=== PATIENT | female | born 1965 | race Caucasian/White ===

== ENCOUNTER → 2021-07-20 13:44 | Outpatient (BNVA) | payer OTHER, SELFPAY | PROVIDERS: Visit Provider Internal Medicine Rheumatology | DX: M05.9 Rheumatoid arthritis with rheumatoid factor, unspecified (principal); M81.0 Age-related osteoporosis without current pathological fracture; Z79.899 Other long term (current) drug therapy | CPT/HCPCS: 99212 ==

== ENCOUNTER 2021-08-17 16:14 | Outpatient (REF) | payer OTHER, SELFPAY ==
--- NOTE | ~2021-08-17 | XR_ITS ---
EXAMINATION: XR FOOT, LEFT CLINICAL INFORMATION: Rheumatoid arthritis. COMPARISON: None TECHNIQUE: AP, lateral, and oblique views of the left foot. FINDINGS: There is generalized bony demineralization. No fracture, dislocation or left ankle joint effusion is seen. Boehler's angle is normal. No calcaneal spur seen. There are no focal bone erosions. No soft tissue swelling, gas or foreign body is seen. XR/XR foot LT min 3V IMPRESSION: There is bony demineralization. No fracture, dislocation or unusual degenerative change is seen. There are no focal erosive changes.
--- NOTE | ~2021-08-17 | XR_ITS ---
EXAMINATION: XR HIP, RIGHT CLINICAL INFORMATION: Rheumatoid arthritis. COMPARISON: None TECHNIQUE: AP and frog-leg lateral views of the right hip. FINDINGS: Bones and soft tissues are normal. No fracture. Alignment is anatomic. Hip joint space is maintained. XR/XR hip LT min 2V IMPRESSION: Normal right hip. EXAMINATION: XR HIP, LEFT CLINICAL INFORMATION: Rheumatoid arthritis. COMPARISON: None TECHNIQUE: AP and frog-leg lateral views of the left hip. FINDINGS: Bones and soft tissues are normal. No fracture. Alignment is anatomic. Hip joint space is maintained. IMPRESSION: Normal left hip.
--- NOTE | ~2021-08-17 | XR_ITS ---
EXAMINATION: XR HIP, RIGHT CLINICAL INFORMATION: Rheumatoid arthritis. COMPARISON: None TECHNIQUE: AP and frog-leg lateral views of the right hip. FINDINGS: Bones and soft tissues are normal. No fracture. Alignment is anatomic. Hip joint space is maintained. XR/XR hip RT min 2V IMPRESSION: Normal right hip. EXAMINATION: XR HIP, LEFT CLINICAL INFORMATION: Rheumatoid arthritis. COMPARISON: None TECHNIQUE: AP and frog-leg lateral views of the left hip. FINDINGS: Bones and soft tissues are normal. No fracture. Alignment is anatomic. Hip joint space is maintained. IMPRESSION: Normal left hip.
== END 2021-08-17 16:15 | disposition home or self-care (01) ==
LOC: HO.HMGCX 16:14
PROVIDERS: Visit Provider Internal Medicine Rheumatology
DX: M05.9 Rheumatoid arthritis with rheumatoid factor, unspecified (principal); M70.61 Trochanteric bursitis, right hip; M79.672 Pain in left foot; M81.0 Age-related osteoporosis without current pathological fracture
CPT/HCPCS: 73502; 73630

== ENCOUNTER 2021-09-01 15:25 | Outpatient (REF) | payer OTHER, SELFPAY ==
[2021-09-01 16:51] LABS: MANUAL DIFF FLAG NO
[2021-09-01 16:57] LABS: Basophils Absolute Auto 0.1 X10*3/uL (0.0-0.2); Basophils Percent Auto 0.7 % (0-2); Eosinophils Absolute Auto 0.4 X10*3/uL (0.0-0.4); Eosinophils Percent Auto 5.4 % (0-4); Hematocrit 41.5 % (37.0-47.0); Hemoglobin 13.7 g/dl (12.0-16.0); Imm Gran Abs Auto 0.03 X10*3/uL (0.00-0.03); Imm Gran Pct Auto 0.4 % (0.0-0.4); Lymphocytes Absolute Auto 3.8 X10*3/uL (1.2-4.9); Lymphocytes Percent Auto 50.7 % (20-40); Mean Corpuscular Hemoglobin 29.8 pg (27.0-33.0); Mean Corpuscular Volume 90.4 fL (80.0-98.0); Mean Platelet Volume 11.1 fL (9.4-12.3); Monocytes Absolute Auto 0.6 X10*3/uL (0.1-1.2); Monocytes Percent Auto 8.3 % (2-11); Neutrophils Absolute Auto 2.6 x10*3/uL (2.0-8.3); Neutrophils Percent Auto 34.5 % (45-73); Platelet Count 218 X10*3/uL (160-400); Red Blood Count 4.59 X10*6/uL (4.20-5.50); Red Cell Distribution Width 13.8 % (11.0-16.0); White Blood Count 7.6 X10*3/uL (4.8-10.8)
[2021-09-01 17:27] LABS: Alanine Aminotransferase 25 U/L (0-31); Aspartate Amino Transferase 22 U/L (5-31); C Reactive Protein 0.15 mg/dL (< or = 0.50); Estimated Glomerular Filt Rate > 60
[2021-09-01 17:34] LABS: Erythrocyte Sedimentation Rate 6 MM/HR (0-20)
[2021-09-01 17:50] LABS: TSH reflex Free T4 1.31 uIU/mL (0.32-4.0)
== END 2021-09-01 15:26 | disposition home or self-care (01) ==
LOC: HO.HMGCLDS 15:25
PROVIDERS: Visit Provider Internal Medicine Rheumatology
DX: M05.9 Rheumatoid arthritis with rheumatoid factor, unspecified (principal); R63.5 Abnormal weight gain; Z79.899 Other long term (current) drug therapy
CPT/HCPCS: 36415; 82565; 84443; 84450; 84460; 85025; 85652; 86140

== ENCOUNTER 2022-01-07 14:58 | Outpatient (REF) | payer OTHER, SELFPAY ==
[2022-01-07 16:35] LABS: MANUAL DIFF FLAG NO
[2022-01-07 16:37] LABS: Basophils Absolute Auto 0.1 X10*3/uL (0.0-0.2); Basophils Percent Auto 0.8 % (0-2); Eosinophils Absolute Auto 0.3 X10*3/uL (0.0-0.4); Eosinophils Percent Auto 3.7 % (0-4); Hematocrit 41.1 % (37.0-47.0); Hemoglobin 13.7 g/dl (12.0-16.0); Imm Gran Abs Auto 0.03 X10*3/uL (0.00-0.03); Imm Gran Pct Auto 0.3 % (0.0-0.4); Lymphocytes Absolute Auto 4.9 X10*3/uL (1.2-4.9); Lymphocytes Percent Auto 55.9 % (20-40); Mean Corpuscular HGB Conc 33.3 g/dl (31.0-35.0); Mean Corpuscular Hemoglobin 29.8 pg (27.0-33.0); Mean Corpuscular Volume 89.3 fL (80.0-98.0); Mean Platelet Volume 11.1 fL (9.4-12.3); Monocytes Absolute Auto 0.8 X10*3/uL (0.1-1.2); Monocytes Percent Auto 9.1 % (2-11); Neutrophils Absolute Auto 2.6 x10*3/uL (2.0-8.3); Neutrophils Percent Auto 30.2 % (45-73); Platelet Count 233 X10*3/uL (160-400); Red Cell Distribution Width 13.7 % (11.0-16.0); White Blood Count 8.7 X10*3/uL (4.8-10.8)
[2022-01-07 16:47] LABS: Alanine Aminotransferase 29 U/L (0-31); Aspartate Amino Transferase 29 U/L (5-31); C Reactive Protein 0.38 mg/dL (< or = 0.50); Estimated Glomerular Filt Rate > 60
[2022-01-07 17:21] LABS: Erythrocyte Sedimentation Rate 12 MM/HR (0-20)
== END 2022-01-07 14:59 | disposition home or self-care (01) ==
LOC: HO.HMGCLDS 14:58
PROVIDERS: Visit Provider Internal Medicine Rheumatology
DX: M05.9 Rheumatoid arthritis with rheumatoid factor, unspecified (principal); Z79.899 Other long term (current) drug therapy
CPT/HCPCS: 36415; 82565; 84450; 84460; 85025; 85652; 86140

== ENCOUNTER 2022-03-08 | Emergency (ER) | payer OTHER, SELFPAY ==
[2022-03-07 23:58] VITALS: BP 141/70; PULSE 210; O2SAT 96
[2022-03-08] VITALS: BP 140/86; PULSE 111; RESP 17; TEMP 37.3; O2SAT 140; BMI 31.5
--- NOTE | 2022-03-08 00:09 | ECG_ITS ---
Test Reason : SVT Blood Pressure : / mmHG Vent. Rate : 112 BPM Atrial Rate : 112 BPM P-R Int : 124 ms QRS Dur : 074 ms QT Int : 324 ms P-R-T Axes : 045 058 040 degrees QTc Int : 442 ms Sinus tachycardia Otherwise normal ECG No previous ECGs available Referred By: Hawk Samson Electronically Signed By:NICKY HUDSON MD
--- NOTE | 2022-03-08 00:22 | PC.NURSE ---
pt chart not opening to triage to document. pt at this time is pain free. ekg being done. no s/s of resp distress.
--- NOTE | 2022-03-08 01:02 | ED_ITS ---
HPI - Arrhythmia/Palpitations General Chief Complaint: General Medical Stated Complaint: resolved svt Source: patient Mode of arrival: ambulatory Limitations: no limitations History of Present Illness HPI narrative: Patient otherwise healthy just prior to arrival patient noticed having palpitation episode will last about 15-20 minutes until EMS came monitor showed heart rate in 220 Adenocard 6 mg was given which broke the SVT to normal sinus rhythm no dizziness no shortness of breath no chest pain patient also has small area right buttock inflamed for last 3- 4 days history of staph infection at age 19 Related Data Home Medications Medication Instructions Recorded Confirmed albuterol sulfate 2.5 mg/3 mL 2.5 mg inhalation Q4-6H PRN 07/20/21 07/20/21 (0.083 %) solution for nebulization albuterol sulfate 90 mcg/actuation 2 puff inhalation Q6H PRN 07/20/21 07/20/21 aerosol inhaler alendronate 70 mg tablet 70 mg PO QWEEK 07/20/21 07/20/21 multivitamin 1 tab PO DAILY 07/20/21 07/20/21 omeprazole 20 mg capsule,delayed 20 mg PO .every other day 07/20/21 07/20/21 release Previous Rx's Medication Instructions Recorded folic acid 400 mcg tablet 0.4 mg PO DAILY #90 tabs 07/20/21 adalimumab 40 mg/0.4 mL 40 mg (0.4 mL) subcut Q2W #2 ea 10/14/21 subcutaneous pen kit (Humira(CF) Pen) methotrexate sodium 2.5 mg tablet 15 mg PO QWEEK #24 tabs 11/23/21 cephalexin 500 mg capsule 500 mg PO QID 10 days #40 caps 03/08/22 Allergies Allergy/AdvReac Type Severity Reaction Status Date / Time amoxicillin Allergy Intermediate Vomiting/di Verified 07/20/21 13:54 arrhea Review of Systems Review of Systems: Yes all other systems are reviewed and are negative PMFSH Past Medical History 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 Osteoporosis Seropositive rheumatoid arthritis Trochanteric bursitis of right hip Weight gain Social History Social History Household Members Other:: lives alone Housing: Apartment Are you a primary rn progressive care unit to a significant other at home: No Do you presently have visiting nurse or other home services: No Alcohol intake: current Alcohol intake frequency: 0-2 drinks per day Alcohol type: wine Patient Tobacco Use Status: Former Tobacco user Years Smoked: quit 2010 Smoked in Last 30 Days: No e-Cigarette/Vaping Use: Never Used Use of substances other than those prescribed or required for medical reasons: No Advance Directives: No Advance Directives Information Provided: Yes Patient : No service: No Current occupational status: employed 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 Oriented X3. No acute distress. Eyes: PERRLA, No Nystagmus ENT: Pharynx normal. Oral Mucosa moist Neck: Normal inspection. Neck supple. CVS: Sinus tachycardia. Pulses normal no murmur rub or gallop. Respiratory: No respiratory distress. Equal air entry bilateral, no wheezing/rales/rhonchi Abdomen: Soft and nontender. Bowel sounds are present, no mass palpable, no CVA tenderness Skin: Skin warm and dry. Right gluteal area 10 x 10 cm cellulitic with middle indurated area Extremities: No lower extremity edema. No calf tenderness Neuro: Oriented X 3. No motor deficit. Medications Administered Generic Name Dose Route Start Last Admin Trade Name Freq PRN Reason Stop Dose Admin Sodium Chloride 1,000 mls @ 999 mls/hr 03/08/22 00:55 03/08/22 01:17 Ns IV 03/08/22 01:55 999 mls/hr .Q1H1M ONE Administration Discontinued Medications Generic Name Dose Route Start Last Admin Trade Name Freq PRN Reason Stop Dose Admin Cephalexin HCl 500 mg 03/08/22 00:44 03/08/22 01:17 Cephalexin 500 Mg Capsule PO 03/08/22 00:45 500 mg ONCE ONE Administration Doxycycline Monohydrate 100 mg 03/08/22 00:44 03/08/22 01:17 Doxycycline Monohydrate 100 Mg Capsule PO 03/08/22 00:45 100 mg ONCE ONE Administration Lidocaine HCl 2 ml 03/08/22 00:47 03/08/22 01:17 Lidocaine Hcl 1 % Mpf 2 Ml Vial INFILTRATI 03/08/22 00:48 2 ml ONCE ONE Administration MDM - Arrhythmia/Palpitations MDM Narrative Medical decision making narrative: Patient with 1st episode of SVT improved after Adenocard also has cellulitic area with small abscess in right gluteal I&D was done small amount of pus drained and sent for culture during stay in the ER patient stated sinus rhythm Differential Diagnosis Differential diagnosis: Likely palpitations and supraventricular tachycardia Lab Data Attestation: I reviewed the patient's lab results. Result diagrams: 03/08/22 00:59 03/08/22 00:59 Labs: Lab Results 03/08/22 03/08/22 03/08/22 Range/Units 00:59 00:59 00:59 WBC 13.2 H (4.8-10.8) X10*3/uL RBC 4.37 (4.20-5.50) X10*6/uL Hgb 12.7 (12.0-16.0) g/dl Hct 38.9 (37.0-47.0) % MCV 89.0 (80.0-98.0) fL MCH 29.1 (27.0-33.0) pg MCHC 32.6 (31.0-35.0) g/dl RDW 13.0 (11.0-16.0) % Plt Count 214 (160-400) X10*3/uL MPV 10.2 (9.4-12.3) fL Immature Gran % (Auto) 0.4 (0.0-0.4) % Neut % (Auto) 61.5 (45-73) % Lymph % (Auto) 28.1 (20-40) % [place] % (Auto) 8.4 (2-11) % Eos % (Auto) 1.1 (0-4) % Baso % (Auto) 0.5 (0-2) % Lymph # (Auto) 3.7 (1.2-4.9) X10*3/uL [place] # (Auto) 1.1 (0.1-1.2) X10*3/uL Eos # (Auto) 0.1 (0.0-0.4) X10*3/uL Baso # (Auto) 0.1 (0.0-0.2) X10*3/uL Abs Immat Gran (auto) 0.05 H (0.00-0.03) X10*3/uL Absolute Neuts (auto) 8.1 (2.0-8.3) x10*3/uL Absolute Nucleated RBC 0.000 (0.0-0.012) X10*3/uL Nucleated RBC % (auto) 0.0 (0.0-0.2) /100WBC Sodium 137 (135-145) mmol/L Potassium 4.1 (3.3-5.1) mmol/L Chloride 104 (96-108) mmol/L Carbon Dioxide 24 (22-29) mmol/L Anion Gap 13 (12-20) BUN 8 L (9-16) mg/dL Creatinine 0.76 (0.5-1.4) mg/dL Estim Creat Clear Calc 83.1 Estimated GFR > 60 Random Glucose 109 (60-115) mg/dL Calcium 9.3 (8.4-10.2) mg/dL Magnesium 2.0 (1.6-2.6) mg/dL Total Bilirubin 0.5 (0.0-1.0) mg/dL AST 23 (5-31) U/L ALT 26 (0-31) U/L Alkaline Phosphatase 101 (39-117) U/L Troponin I High Sens < 3.5 (<3.5-17.0) ng/L Total Protein 7.3 (6.5-8.0) g/dL Albumin 4.0 (3.5-5.0) g/dL ECG Data Attestation: I personally reviewed and interpreted this ECG as follows: Interpretation: Sinus tachycardia heart rate 112 beats per minute normal interval normal axis no acute ST T wave changes no acute ischemia Procedures Abscess I/D Site: lower extremity (Right gluteal) Side (if applicable): right Local Anesthetic: lidocaine 1% Amount of anesthesia used (mL): 4 Technique: incised with blade Amount of fluid expressed (mL): 0.5 Sent for culture/gram staining?: Yes Irrigation: No Packing used?: none Discharge Plan Discharge Clinical Impression: Paroxysmal supraventricular tachycardia, Abscess, gluteal, right Patient Disposition: Home, Self-Care Instructions: Supraventricular Tachycardia (ED), Abscess Incision and Drainage (DC) Additional Instructions: Drink plenty of fluids Take doxycycline and antibiotic as prescribed for the abscess Avoid caffeine drinks Report to the ER if recurrence of the episodes Prescriptions: New cephalexin 500 mg capsule 500 mg PO QID 10 Days Qty: 40 0RF No Action Humira(CF) Pen 40 mg/0.4 mL pen injector kit 40 mg subcut Q2W Qty: 2 4RF methotrexate sodium 2.5 mg tablet 15 mg PO QWEEK Qty: 24 0RF alendronate 70 mg tablet 70 mg PO QWEEK omeprazole 20 mg capsule,delayed release(DR/EC) 20 mg PO .every other day albuterol sulfate 90 mcg/actuation HFA aerosol inhaler 2 puff inhalation Q6H PRN albuterol sulfate 2.5 mg /3 mL (0.083 %) solution for nebulization 2.5 mg inhalation Q4-6H PRN multivitamin Tablet 1 tab PO DAILY folic acid 400 mcg tablet 0.4 mg PO DAILY Qty: 90 3RF
[2022-03-08 01:03] LABS: MANUAL DIFF FLAG NO
[2022-03-08 01:05] LABS: Basophils Absolute Auto 0.1 X10*3/uL (0.0-0.2); Basophils Percent Auto 0.5 % (0-2); Eosinophils Absolute Auto 0.1 X10*3/uL (0.0-0.4); Eosinophils Percent Auto 1.1 % (0-4); Hematocrit 38.9 % (37.0-47.0); Hemoglobin 12.7 g/dl (12.0-16.0); Imm Gran Abs Auto 0.05 X10*3/uL (0.00-0.03); Imm Gran Pct Auto 0.4 % (0.0-0.4); Lymphocytes Absolute Auto 3.7 X10*3/uL (1.2-4.9); Lymphocytes Percent Auto 28.1 % (20-40); Mean Corpuscular HGB Conc 32.6 g/dl (31.0-35.0); Mean Corpuscular Hemoglobin 29.1 pg (27.0-33.0); Mean Platelet Volume 10.2 fL (9.4-12.3); Monocytes Absolute Auto 1.1 X10*3/uL (0.1-1.2); Monocytes Percent Auto 8.4 % (2-11); Neutrophils Absolute Auto 8.1 x10*3/uL (2.0-8.3); Neutrophils Percent Auto 61.5 % (45-73); Platelet Count 214 X10*3/uL (160-400); Red Blood Count 4.37 X10*6/uL (4.20-5.50); White Blood Count 13.2 X10*3/uL (4.8-10.8)
[2022-03-08] MEDS: Doxycycline Monohydrate 100 MG CAPSULE PO (01:17)
[2022-03-08] MEDS: Lidocaine HCl 1 % MPF 2 ML VIAL INFILTRATI (01:17)
[2022-03-08] MEDS: 0.9 % Sodium Chloride 1,000 ML 999 ML IV (01:17)
[2022-03-08] MEDS: cephALEXin 500 MG CAPSULE PO (01:17)
--- NOTE | 2022-03-08 01:24 | PC.NURSE ---
this rn at bedside with dr zayas during drainage and culture collection of R buttock
[2022-03-08 01:26] LABS: Troponin-I High Sensitivity < 3.5 ng/L (<3.5-17.0)
--- NOTE | 2022-03-08 01:26 | PC.NURSE ---
pt requested to be disconnected from monitor to walk to the bathroom. pt ambulated to bathroom independently. pt returned to room. this rn connected pt to plasma table operator. assisted pt in boosting up in bed. pt medicated according to MAR.
[2022-03-08 01:30] LABS: Alanine Aminotransferase 26 U/L (0-31); Alkaline Phosphatase 101 U/L (39-117); Anion Gap 13 (12-20); Aspartate Amino Transferase 23 U/L (5-31); Bilirubin Total 0.5 mg/dL (0.0-1.0); Blood Urea Nitrogen 8 mg/dL (9-16); Calcium 9.3 mg/dL (8.4-10.2); Carbon Dioxide 24 mmol/L (22-29); Chloride 104 mmol/L (96-108); Creatinine Clr Calc Pharmacy 83.1; Estimated Glomerular Filt Rate > 60; Glucose Random 109 mg/dL (60-115); Potassium 4.1 mmol/L (3.3-5.1); Sodium 137 mmol/L (135-145); Total Protein 7.3 g/dL (6.5-8.0)
[2022-03-08 02:05] VITALS: BP 137/80; PULSE 95; RESP 20; TEMP 36.8; O2SAT 99
== END 2022-03-08 02:41 | disposition home or self-care (01) ==
PROVIDERS: Emergency Provider Internal Medicine; PCP Internal Medicine
DX: I47.1 Supraventricular tachycardia (principal); L02.415 Cutaneous abscess of right lower limb; M05.9 Rheumatoid arthritis with rheumatoid factor, unspecified; Z87.891 Personal history of nicotine dependence; Z79.899 Other long term (current) drug therapy
CPT/HCPCS: 10060; 36415; 80053; 83735; 84484; 85025; 87070; 87077; 87186; 87205; 93005; 96360; 99284

== ENCOUNTER → 2022-10-07 09:05 | Outpatient (BNVA) | payer OTHER, SELFPAY | PROVIDERS: PCP Internal Medicine; Visit Provider Internal Medicine Rheumatology | DX: M05.9 Rheumatoid arthritis with rheumatoid factor, unspecified (principal); M81.0 Age-related osteoporosis without current pathological fracture; K80.20 Calculus of gallbladder without cholecystitis without obstruction; Z79.899 Other long term (current) drug therapy | CPT/HCPCS: 99212 ==

== ENCOUNTER 2022-10-07 10:24 | Outpatient (REF) | payer OTHER, SELFPAY ==
[2022-10-07 11:18] LABS: C Reactive Protein 0.21 mg/dL (< or = 0.50)
== END 2022-10-07 10:25 | disposition home or self-care (01) ==
LOC: HO.10HDL 10:24
PROVIDERS: Visit Provider Internal Medicine Rheumatology
DX: M05.9 Rheumatoid arthritis with rheumatoid factor, unspecified (principal); M81.0 Age-related osteoporosis without current pathological fracture; K80.20 Calculus of gallbladder without cholecystitis without obstruction; Z79.899 Other long term (current) drug therapy
CPT/HCPCS: 36415; 86140

== ENCOUNTER 2022-10-29 13:02 | Outpatient (REF) | payer OTHER, SELFPAY ==
--- NOTE | ~2022-10-29 | MM_ITS ---
EXAMINATION: BONE DENSITOMETRY CLINICAL INDICATION: Age-related osteoporosis without current pathological fracture. COMPARISON: This is the patient's baseline examination. TECHNIQUE: Using a [employer] DXA System (software version: 13.1) manufactured by [employer], dual-energy x-ray absorptiometry was performed of the lumbar spine and left hip. The images are of good technical quality. Summary results are attached. FINDINGS: LEFT FEMUR, NECK: BMD 0.631 g/cm2, Z-score -2.2, T-score -2.9, osteoporosis. LEFT FEMUR, TOTAL: BMD 0.752 g/cm2, Z-score -1.7, T-score -2.0, osteopenia. AP SPINE L1-L4: BMD 0.662 g/cm2, Z-score -3.9, T-score -4.3, osteoporosis. IDENTIFIED RISK FACTORS: Menopause, glucocorticoids (chronic), rheumatoid arthritis, osteoporosis, height loss, low calcium intake. HISTORY OF FRACTURE: None listed. MEDICATIONS: None listed. MM/XR DEXA axial skeleton IMPRESSION: 1. DIAGNOSIS: Osteoporosis based on the lowest T-score value of -4.3 in the lumbar spine applying World Health Organization criteria. 2. 10-YEAR FRACTURE RISK PREDICTION, FRAX: According to the guidelines, FRAX calculation should only be performed on patients in the osteopenia bone density category. Therefore, FRAX was not performed on this patient. 3. Treatment Recommendations: NOF guidelines recommend consideration for treatment in postmenopausal women and men age 50 and older presenting with the following: -A hip or vertebral (clinical or morphometric) fracture. -T-score less than or equal to -2.5 at the femoral neck or spine after appropriate evaluation to exclude secondary causes. -Low bone mass at the hip or spine and a 10-year fracture probability by FRAX of greater than or equal to 3% for hip fracture or greater than or equal to 20% for major osteoporotic fracture based on the [place] adapted WHO algorithm. 4. Other Recommendations: All treatment decisions require clinical judgment and consideration of individual patient factors, including patient preferences, comorbidities, previous drug use, risk factors not captured in the FRAX model (e.g. frailty, falls, vitamin D deficiency, increased bone turnover, interval significant decline in bone density) and possible under or overestimation of fracture risk by FRAX. Additional medical evaluation for secondary cause of low bone mineral density may be appropriate. FUTURE SCAN RECOMMENDATION: People with diagnosed cases of osteoporosis or at high risk for fracture should have regular bone mineral density tests. For patients eligible for Medicare, routine testing is allowed once every 2 years. The testing frequency can be increased to one year for patients who have rapidly progressing disease, those who are receiving or discontinuing medical therapy to restore bone mass, or have additional risk factors.
== END 2022-10-29 13:03 | disposition home or self-care (01) ==
LOC: HO.MAMMO 13:02
PROVIDERS: Visit Provider Internal Medicine Rheumatology
DX: M81.0 Age-related osteoporosis without current pathological fracture (principal); Z78.0 Asymptomatic menopausal state
CPT/HCPCS: 77080

== ENCOUNTER 2023-02-18 13:37 | Outpatient (AMB) | payer OTHER, SELFPAY ==
--- NOTE | 2023-02-18 13:53 | MHC.OFFWIV ---
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 Patient complaining of bleeding hemorrhoids. Patient states she has a history of hemorrhoids, which are usually asymptomatic. She states that her hemorrhoids started to become mildly sore approximately 1 week ago. She has been trying symptomatic management at home including Sitz baths with Epsom salts and hemorrhoid creams. However, patient noticed some blood on the toilet paper after wiping yesterday morning. She denies any changes in her bowel habits. She denies any blood dripping into the toilet bowl or blood mixed in with her stool. She is also requesting a refill on her omeprazole as she was unable to make an appointment with her primary care physician until June 2023. 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 Osteoporosis Seropositive rheumatoid arthritis Surgical History (Updated 10/07/22 @ 09:12 by MOISES Ko) Hx of shoulder surgery Family History (Updated 10/07/22 @ 09:13 by MOISES Ko) Father HTN (hypertension) Diabetes Afib Social History Household Members Other:: lives alone Housing: Apartment Are you a primary career development consultant to a significant other at home: No Do you presently have visiting nurse or other home services: No 75 years or older and lives alone: No Alcohol intake: current Alcohol intake frequency: 0-2 drinks per day Alcohol type: wine Patient Tobacco Use Status: Former Tobacco user Years Smoked: quit 2009 e-Cigarette/Vaping Use: Never Used service: No Current occupational status: employed 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 Review of Systems Const All systems reviewed & are unremarkable except as noted in HPI and below Reports no additional complaints Eyes Reports no additional complaints ENT Reports no additional complaints Card Reports no additional complaints Resp Reports no additional complaints GI Reports no additional complaints Reports no additional complaints Musc Reports no additional complaints Skin/Breast Reports system reviewed and no additional complaints, except as documented Neuro Reports no additional complaints Psych Reports no additional complaints Endo Reports no additional complaints Regis/Lymph Reports no additional complaints Aller/Immun Reports no additional complaints Physical Exam Vital Signs: Last Vital Signs Temp 97.8 F 02/18/23 13:55 Pulse 86 02/18/23 13:55 BP 140/90 H 02/18/23 13:55 Pulse Ox 98 02/18/23 13:55 Oxygen Delivery Method Room Air 02/18/23 13:55 BMI result Body Mass Index 28.9 Const Other: Vital signs reviewed. Constitutional: Non-toxic appearing. No acute distress. Well-developed and well-nourished. HEENT: Normocephalic and atraumatic. Skin: Warm and dry. No rashes or lesions noted. Neck: Full and painless range of motion. No cervical lymphadenopathy. Cardio: Regular rate. No lower extremity edema. No JVD. Pulmonary: No respiratory distress. No accessory muscle usage. Gastrointestinal: Soft, nontender, and nondistended in all 4 quadrants. There is a what appears to be a thrombosed external hemorrhoid. Musculoskeletal: Normal range of motion in joints throughout the body. No deformity or other signs of injury. Neuro: Alert and oriented x4. Cranial nerves 2-12 grossly intact. No focal deficits appreciated. Psych: Normal mood and affect. Assessment & Plan Assessment & Plan (1) External hemorrhoid, thrombosed: Code(s): K64.5 - Perianal venous thrombosis Plan: This is a 57-year-old female presenting to the office complaining bright red blood the toilet paper after having a bowel yesterday. Patient has a history of hemorrhoids, which have become more bothersome over past 1 week. She has been utilizing symptomatic management including Sitz baths with Epsom salts in hemorrhoid creams without much relief. Patient then noticed some blood on the toilet paper so she came for further evaluation and management. On physical examination, she has what appears to be a thrombosed external hemorrhoid. She denies any significant anal pain. She denies any further bleeding. Patient is requesting a gastroenterology referral as she was unable to make an appointment with her primary care physician until June 2022. Provided the patient with a GI referral given she is a patient of this office and has bothersome hemorrhoids, which require further GI evaluation. Recommended continuing symptomatic management until she is able to follow-up with GI. She was also given a refill of her omeprazole per her request. Patient was advised to follow-up here or proceed directly to the emergency room for any worsening bleeding or any change in her bowel habits. Patient verbalized understanding and is agreeable with the plan. Orders: Referrals Gastroenterology Referral K64.9 - Unspecified hemorrhoids Medications: New omeprazole 20 mg PO DAILY 90 caps 0RF Coding Level of Care Code Est Pt Level 3 (05827) Diagnoses External hemorrhoid, thrombosed K64.5
[2023-02-18 13:55] VITALS: BP 140/90; PULSE 86; TEMP 36.6; O2SAT 98; BMI 28.9
== END 2023-02-18 14:35 | disposition home or self-care (01) ==
PROVIDERS: PCP Internal Medicine; Visit Provider Physician Assistant Medical
DX: K64.5 Perianal venous thrombosis (principal)
CPT/HCPCS: 99213

== ENCOUNTER 2023-03-22 14:50 | Outpatient (REF) | payer OTHER, SELFPAY ==
[2023-03-22 16:10] LABS: MANUAL DIFF FLAG NO
[2023-03-22 16:21] LABS: Basophils Absolute Auto 0.1 X10*3/uL (0.0-0.2); Basophils Percent Auto 0.9 % (0-2); Eosinophils Absolute Auto 0.3 X10*3/uL (0.0-0.4); Eosinophils Percent Auto 4.5 % (0-4); Hematocrit 42.5 % (37.0-47.0); Hemoglobin 13.9 g/dl (12.0-16.0); Imm Gran Abs Auto 0.01 X10*3/uL (0.00-0.03); Imm Gran Pct Auto 0.2 % (0.0-0.4); Lymphocytes Absolute Auto 2.9 X10*3/uL (1.2-4.9); Lymphocytes Percent Auto 45.8 % (20-40); Mean Corpuscular HGB Conc 32.7 g/dl (31.0-35.0); Mean Corpuscular Hemoglobin 29.3 pg (27.0-33.0); Mean Corpuscular Volume 89.7 fL (80.0-98.0); Mean Platelet Volume 11.3 fL (9.4-12.3); Monocytes Absolute Auto 0.5 X10*3/uL (0.1-1.2); Monocytes Percent Auto 8.3 % (2-11); Neutrophils Absolute Auto 2.6 x10*3/uL (2.0-8.3); Neutrophils Percent Auto 40.3 % (45-73); Platelet Count 231 X10*3/uL (160-400); Red Blood Count 4.74 X10*6/uL (4.20-5.50); Red Cell Distribution Width 14.3 % (11.0-16.0); White Blood Count 6.4 X10*3/uL (4.8-10.8)
[2023-03-22 16:33] LABS: Alanine Aminotransferase 34 U/L (0-31); Albumin Level 4.4 g/dL (3.5-5.0); Alkaline Phosphatase 106 U/L (39-117); Anion Gap 12 (12-20); Aspartate Amino Transferase 30 U/L (5-31); Bilirubin Total 0.4 mg/dL (0.0-1.0); Blood Urea Nitrogen 15 mg/dL (9-16); Carbon Dioxide 25 mmol/L (22-29); Chloride 105 mmol/L (96-108); Estimated Glomerular Filt Rate > 60; Glucose Random 102 mg/dL (60-115); Sodium 138 mmol/L (135-145); Total Protein 8.1 g/dL (6.5-8.0)
[2023-03-22 17:27] LABS: Erythrocyte Sedimentation Rate 11 MM/HR (0-20)
== END 2023-03-22 14:51 | disposition home or self-care (01) ==
LOC: HO.HMGCLNP 14:50
PROVIDERS: PCP Internal Medicine; Visit Provider Internal Medicine Rheumatology
DX: M05.9 Rheumatoid arthritis with rheumatoid factor, unspecified (principal); Z79.899 Other long term (current) drug therapy
CPT/HCPCS: 80053; 85025; 85652

== ENCOUNTER 2023-03-23 10:48 | Outpatient (AMB) | payer OTHER, SELFPAY ==
--- NOTE | 2023-03-23 10:50 | A.OFFVIS_ITS ---
Intake Vital Signs 03/23/23 10:51 Height 5 ft 3 in Weight 159 lb 9.835 oz BMI 28.3 BP 138/88 Blood Pressure Location Lt brachial Position Sitting Respiration 15 Pulse 92 Pulse Source Pulse Oximeter Temp 96.8 F Temp Source Tympanic Pulse Oximetry (%) 99 Oxygen Delivery Method Room Air Intake Visit Reasons: Rheumatoid Arthritis Pharmacist Aide Required: No Accompanied by: Self / Same As Patient Allergies amoxicillin Allergy (Intermediate, Verified 03/23/23 10:58) Vomiting/diarrhea Medication List - Last Reconciled 03/23/23 by Ruma Combs RN adalimumab (Humira(CF) Pen) 40 mg (0.4 mL) subcut Q2W albuterol sulfate 90 mcg/actuation 2 puffs inhalation Q6H PRN albuterol sulfate 2.5 mg inhalation Q4-6H PRN multivitamin 1 tab PO DAILY omeprazole 20 mg PO DAILY omeprazole 20 mg PO .every other day HPI HPI Comments History of Present Illness Details The patient presents for evaluation of her rheumatoid arthritis and osteoporosis. I had last seen her about 6 months ago. She did stop the methotrexate because of a recent infection. Shortly after that she decided to also stop Humira 40 mg every 2 weeks that she was taking. Since then she actually has not noticed any significant joint pain or swelling. She does notice chronic slight thickening at the right wrist. There is occasional aching in the hands in the knees. 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 She has been working to lose her weight. This has been affective with a 20 lb of weight loss or so. She has also been taking a number of [id number] supplements. She has not needed any analgesics. She says she could not get a primary care doctor appointment so she turned to [facility] to have some testing done. She was told she did not have any vascular disease, her cholesterol was good, and she did not have osteoporosis. However she has had significant osteoporosis noted on 2 previous bone densitometry tests. She was treated with alendronate but took it off and on for the last 5 years. A repeat bone densitometry this year did show some improvement. She has not had any fractures. She says one of her supplements helps her control her appetite and she has lost about 30 lb. [facility] Medical History Weight gain Trochanteric bursitis of right hip long-term current use of immunosuppressive drug Osteoporosis Seropositive rheumatoid arthritis Surgical History Hx of shoulder surgery Family History Father HTN (hypertension) Diabetes Afib Social History Household Members Other:: lives alone Housing: Apartment Are you a primary child day care teacher to a significant other at home: No Do you presently have visiting nurse or other home services: No 75 years or older and lives alone: No Alcohol intake: current Alcohol intake frequency: 0-2 drinks per day Alcohol type: wine Patient Tobacco Use Status: Former Tobacco user Years Smoked: quit 2009 e-Cigarette/Vaping Use: Never Used service: No Current occupational status: employed 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 Negative for appetite change, fever, chills, malaise and fatigue Eyes Details: Negative for vision change, dry eyes,headaches and dizziness ENT Details: Negative for hearing change, tinnitus, oral ulcer, nose bleeds and oral dryness. Card Details: Negative chest pain, edema and syncope Resp Details: Negative for SOB, cough and wheezing GI Details: Negative indigestion/heartburn, nausea, abdominal pain, bowel changes, diarrhea, constipation and bloody stool. Skin/Breast Details: Negative for itching, rash, hives, Raynaud's symptoms, sun sensitivity, and skin cancer Neuro Details: Negative for epilepsy, palsy, stroke, changes in speech, tingling and weakness Endo Details: Negative for polyuria and polydypsia Regis/Lymph Details: Negative for excessive bruising or bleeding. Physical Exam Vital Signs: Last Vital Signs Temp 96.8 F 03/23/23 10:51 Pulse 92 03/23/23 10:51 Resp 15 03/23/23 10:51 BP 138/88 03/23/23 10:51 Pulse Ox 99 03/23/23 10:51 Oxygen Delivery Method Room Air 03/23/23 10:51 BMI result Body Mass Index 28.3 APPEARANCE: Patient in no acute distress EYES no redness, pupils equal and reactive to light, eyelids normal THROAT: Oral mucosa moist, no ulcerations NECK: No thyromegaly or masses, no adenopathy, trachea midline. HEART: Regulrar rhythm, S1-S2 heard, no murmurs, rubs or gallops. LUNG: Clear to percussion and auscultation ABD: Normal bowel sounds, no organomegaly, masses or tenderness. EXTREMITIES: No edema, no calf tenderness, normal peripheral pulses. JOINT EXAM: Cervical Spine:.? Full range of motion without pain; no tenderness. Thoracic Spine:.? No scoliosis.? No tenderness on palpation. Lumbar Spine:.? Alignment normal.? Probably some?mild scoliosis.??Full range of motion without pain, no tenderness. Chest Wall:.? No tenderness, swelling, increased warmth or erythema. Hands:.? Normal pain-free range of motion without tenderness, swelling, increased warmth or erythema. Able to make a full fist and has a good financial services internship strength. Wrists:.? Right:? Normal pain-free range of motion. There is some slight thickening on the ulnar aspect of the wrist. That area is not tender. Elsewhere in the wrist there is no redness, swelling or tenderness. Left:? N ormal pain-free range of motion without tenderness, swelling, increased warmth or erythema. Elbows:. Right: Slight discomfort at full extension but no tenderness or swelling over the joint space. Left: Normal pain-free range of motion without tenderness, swelling, increased warmth or erythema. Shoulders:.?? Full range of motion without pain. She has anterior scars bilaterally from surgery that was done to prevent dislocations. Today there is no tenderness, weakness, swelling, increased warmth or erythema. Hips:.? Right:? The perhaps is some diminished abduction and external rotation in the right hip.? The range of motion seems to be however without any pain. Left:? Full range of motion without pain. Hip bursa:.? No trochanteric tenderness. Knees:.?? Normal pain-free range of motion with mild patellofemoral crepitus. There is no effusion, tenderness, swelling, increased warmth or erythema.? Ankles:? Normal pain-free range of motion without tenderness, swelling, increased warmth or erythema. Feet:.? Normal pain-free range of motion without tenderness, swelling, increased warmth or erythema. There is some calluses on the medial aspect of the 1st MTP bilaterally. There is slight hallux valgus deformity. Tender points:.? No tenderness to digital palpation at the occiput, trapezius, second rib, lateral epicondyle, knees, greater trochanter and gluteal area bilaterally. ?? Results Reviewed Results Reviewed: Laboratory Tests 01/07/22 10/07/22 03/22/23 15:10 10:27 15:05 WBC 6.4 Hgb 13.9 ESR 12 11 Creatinine AST ALT C-Reactive Protein 0.21 03/22/23 03/22/23 15:05 15:05 WBC Hgb ESR Creatinine 0.73 AST 30 ALT 34 H C-Reactive Protein [address] [place] [address] Mammography Report Signed Patient: Ghislaine Rodriguez MR#: [id number] : 1965 Acct:[id number] Age/Sex: 57 / F ADM Date: 10/29/22 Ordering Physician: Asim Jade MD Results: Date of Service: 10/29/22 Follow Up: Procedure(s): XR DEXA axial skeleton Accession Number(s): [id number] cc: Asim Jade MD~ EXAMINATION: BONE DENSITOMETRY CLINICAL INDICATION: Age-related osteoporosis without current pathological fracture. COMPARISON: This is the patient's baseline examination. TECHNIQUE: Using a [employer] DXA System (software version: 13.1) manufactured by [employer], dual-energy x-ray absorptiometry was performed of the lumbar spine and left hip. The images are of good technical quality. Summary results are attached. FINDINGS: LEFT FEMUR, NECK: BMD 0.631 g/cm2, Z-score -2.2, T-score -2.9, osteoporosis. LEFT FEMUR, TOTAL: BMD 0.752 g/cm2, Z-score -1.7, T-score -2.0, osteopenia. AP SPINE L1-L4: BMD 0.662 g/cm2, Z-score -3.9, T-score -4.3, osteoporosis. IDENTIFIED RISK FACTORS: Menopause, glucocorticoids (chronic), rheumatoid arthritis, osteoporosis, height loss, low calcium intake. HISTORY OF FRACTURE: None listed. MEDICATIONS: None listed. MM/XR DEXA axial skeleton IMPRESSION: 1. DIAGNOSIS: Osteoporosis based on the lowest T-score value of -4.3 in the lumbar spine applying World Health Organization criteria. 2. 10-YEAR FRACTURE RISK PREDICTION, FRAX: According to the guidelines, FRAX calculation should only be performed on patients in the osteopenia bone density category. Therefore, FRAX was not performed on this patient. 3. Treatment Recommendations: NOF guidelines recommend consideration for treatment in postmenopausal women and men age 50 and older presenting with the following: -A hip or vertebral (clinical or morphometric) fracture. -T-score less than or equal to -2.5 at the femoral neck or spine after appropriate evaluation to exclude secondary causes. -Low bone mass at the hip or spine and a 10-year fracture probability by FRAX of greater than or equal to 3% for hip fracture or greater than or equal to 20% for major osteoporotic fracture based on the [place] adapted WHO algorithm. 4. Other Recommendations: All treatment decisions require clinical judgment and consideration of individual patient factors, including patient preferences, comorbidities, previous drug use, risk factors not captured in the FRAX model (e.g. frailty, falls, vitamin D deficiency, increased bone turnover, interval significant decline in bone density) and possible under or overestimation of fracture risk by FRAX. Additional medical evaluation for secondary cause of low bone mineral density may be appropriate. FUTURE SCAN RECOMMENDATION: People with diagnosed cases of osteoporosis or at high risk for fracture should have regular bone mineral density tests. For patients eligible for Medicare, routine testing is allowed once every 2 years. The testing frequency can be increased to one year for patients who have rapidly progressing disease, those who are receiving or discontinuing medical therapy to restore bone mass, or have additional risk factors. Dictated By: Nakul Coyle MD [facility] MED[facility] Imaging Result Report Patient: Ghislaine Rodriguez Date of Service: 07/20/17 ? ? Patient Gender: Female Ordering Provider: Johny Zee : 1965 ? ? ? Final DXA BONE DENSITY STUDY 1+ SITS AXIAL SKEL Exam Date: 07/20/2017 4:01 PM Ordering Diagnosis: Encounter for screening for osteoporosis ? ? BONE DENSITY ? Lumbar Spine T-score is -4.0 (SD relative to 20-29 y/o adult) Z-score is -3.1 (SD relative to age matched peers) This is consistent with osteoporosis by criteria defined by the WHO. ? Left Hip T-score is -3.3 Z-score is -2.4 This is consistent with osteoporosis by criteria defined by the WHO. ? ? ? Impression: ?Based on the World Health Organization criteria, Ghislaine Muñoz should be classified as having osteoporosis. Assessment & Plan Assessment & Plan (1) Osteoporosis: Comment: 2017 T scores at [facility]: LS -4.0, hip -3.3. Alendronate started, stopped by patient around 2020 2022 T scores at [facility] LS -4.3, hip -2.0 Code(s): M81.0 - Age-related osteoporosis without current pathological fracture (2) Elevated transaminase level: Code(s): R74.01 - Elevation of levels of liver transaminase levels (3) Seropositive rheumatoid arthritis: Comment: Onset fall 2011. Rheumatoid factor, CCP Ab both markedly positive. Hand films show some x-ray changes July 2012.Methotrexate started 08/21. Enbrel added 08/22. Enbrel changed to Humira 10/23 Code(s): M05.9 - Rheumatoid arthritis with rheumatoid factor, unspecified Plan Rheumatoid arthritis with little to no evidence currently of active synovitis. I think there is some thickening on the ulnar aspect of the right wrist. She has got some persistent pain with motion in the right elbow and occasionally the knees consistent with secondary changes but again no active synovitis is appreciated. The acute phase reactants seem close to normal. This is after she stopped the Humira some 6 months ago. At present I told her that it was a probability that the inflammatory arthritis could return so she should keep a lookout for further joint swelling or increased pain in the joints. We will book her back for follow-up at about 6 months but if she gets synovitis before that she should give us a call. The bone density at the hip did improve since the previous study a of a number of years ago, the lower spine got a little bit worse. She is not at all interested in taking medicine for bone health currently. Indeed she has been over the past few years and her risk of fracture probably has diminished because of that physical activity. A repeat study in 2 years would be reasonable. I told her I did not believe the [facility] assessment that she does not have osteoporosis. She has had 2 bone densities over the last 5 years, bot of which showed conclusively that she had osteoporosis. I suspect the alendronate she received is still somewhat active so we will not treat recommend treatment for now. I told her I did not know whether the supplements she was taking were worth the cost but I do not think they are causing her any harm. She does have mild elevation of transaminases. This has been occurring over the past year, coincident with her initial weight gain and now there is still some present so we are having her continue with efforts at weight reduction. We will book her for follow-up in about 5 months. Coding Level of Care Code Est Pt Level 4 (52264) Diagnoses Osteoporosis M81.0 Elevated transaminase level R74.01 Seropositive rheumatoid arthritis M05.9
[2023-03-23 10:51] VITALS: BP 138/88; PULSE 92; RESP 15; TEMP 36; O2SAT 99; BMI 28.3
== END 2023-03-23 11:41 | disposition home or self-care (01) ==
PROVIDERS: PCP Internal Medicine; Visit Provider Internal Medicine Rheumatology
DX: M05.79 Rheumatoid arthritis with rheumatoid factor of multiple sites without organ or systems involvement (principal); M81.0 Age-related osteoporosis without current pathological fracture; R74.01 Elevation of levels of liver transaminase levels
CPT/HCPCS: 99214

== ENCOUNTER → 2023-03-23 10:48 | Outpatient (BNVA) | payer OTHER, SELFPAY | PROVIDERS: PCP Internal Medicine; Visit Provider Internal Medicine Rheumatology | DX: M81.0 Age-related osteoporosis without current pathological fracture (principal); M05.9 Rheumatoid arthritis with rheumatoid factor, unspecified; R74.01 Elevation of levels of liver transaminase levels | CPT/HCPCS: 99212 ==

== ENCOUNTER 2023-06-24 07:30 | Outpatient (AMB) | payer OTHER, SELFPAY ==
--- NOTE | 2023-06-24 07:42 | MHC.PC.OV ---
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 Intake Note: Pt is here today as a New Patient to [facility] care Allergies amoxicillin Allergy (Intermediate, Verified 06/24/23 07:45) Vomiting/diarrhea alendronate sodium [From Fosamax] Adverse Reaction (Intermediate, Verified 06/24/23 08:38) Heartburn Medication List - Last Reconciled 06/24/23 by Aure Caraballo MD albuterol sulfate 90 mcg/actuation 2 puffs inhalation Q6H PRN albuterol sulfate 2.5 mg inhalation Q4-6H PRN clobetasol 0.05% 1 appl topical BEDTIME Humira(CF) Pen (adalimumab) 40 mg (0.4 mL) subcut Q2W NS multivitamin 1 tab PO DAILY omeprazole 20 mg PO DAILY Tobacco use date assessed: 06/24/23 Dental Screening Dental Screen Date: 06/24/23 Did you have a dental visit in the last 12 months?: No Was dental information given to patient?: Patient has dentist 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 For osteoporosis patient took alendronate for 2 years and stopped in 2020 because of stomach upset and heartburn. Patient's most recent DEXA showed worsening osteoporosis. Patient complains of chronic epigastric abdominal pain worse after eating fatty foods and twice a month. patient denies nausea, vomiting change in bowel habits hematochezia melena weight loss. PFSH Medical History (Updated 06/24/23 @ 15:29 by Aure Caraballo MD) Weight gain Trochanteric bursitis of right hip senior living current use of immunosuppressive drug Osteoporosis Seropositive rheumatoid arthritis Surgical History Hx of shoulder surgery Family History Father HTN (hypertension) Diabetes Afib Social History Household Members Other:: lives alone with disable person, Housing: Apartment Are you a primary primary care nurse practitioner to a significant other at home: No Do you presently have visiting nurse or other home services: No 75 years or older and lives alone: No Alcohol intake: current Alcohol intake frequency: 0-2 drinks per day Alcohol type: wine Patient Tobacco Use Status: Former Tobacco user Years Smoked: quit 2009 e-Cigarette/Vaping Use: Never Used service: No Current occupational status: employed 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 How often do you have a drink containing alcohol?: 4 or more times a week 2. How many drinks containing alcohol do you have on a typical day when you are drinking?: 3 or 4 3. How often do you have six or more drinks on one occasion?: Never Total Score: 5 FREDA-7 AMB Questionnaire FREDA-7 Feeling nervous, anxious, or on edge: 1 = Several days Not being able to stop or control worryin = Not at all Worrying too much about different things: 1 = Several days Trouble relaxin = Several days Being so restless that it is hard to sit still: 0 = Not at all Becoming easily annoyed or irritable: 1 = Several days Feeling afraid as if something awful might happen: 0 = Not at all Total FREDA-7 score (0-4 normal; 5-9 mild; 10-14 moderate; 15-21 severe): 4 Source: Developed by Drs. Marv Westbrook, Lillian Boudreaux, Santos Andrews and colleagues, with an educational tawny from [employer] Review of Systems Const All systems reviewed & are unremarkable except as noted in HPI and below Reports no additional complaints Eyes Reports no additional complaints ENT Reports no additional complaints Card Reports no additional complaints Resp Reports no additional complaints GI Reports no additional complaints Reports no additional complaints Physical exam (Primary Care) Vital Signs: Last Vital Signs Pulse 77 06/24/23 07:44 BP 136/92 H 06/24/23 07:44 Pulse Ox 98 06/24/23 07:44 Oxygen Delivery Method Room Air 06/24/23 07:44 BMI result Body Mass Index 29.2 Tobacco/Smoking Status: Tobacco use Status Tobacco use date assessed 06/24/23 06/24/23 07:49 Patient Tobacco Use Status Former Tobacco user 06/24/23 08:01 e-Cigarette/Vaping Use Never Used 06/24/23 08:01 Const General: no acute distress HENMT Face and sinus: Yes normal facial exam Mouth: Normal oral and palatal mucosa present Eyes General: appearance normal, both eyes and all related structures Neck Neck: Yes no lymphadenopathy and Yes supple Resp Effort & Inspection: normal respiratory effort Auscultation: clear to auscultation bilaterally Cardio Rhythm: regular rhythm Heart sounds: S1 normal heart sound present and S2 normal heart sound present GI Inspection: Yes normal to inspection Palpation (GI): Soft to palpation Percussion: Yes normal to percussion Auscultation: normal bowel sounds Assessment and Plan Assessment & Plan (1) Normal pelvic exam: Comment: 2019 Code(s): Z01.419 - Encounter for gynecological examination (general) (routine) without abnormal findings Plan: Well-balanced diet regular physical activity weight loss discussed with the patient. Her blood pressure is borderline elevated but patient declined taking medications. She will follow-up in 2 months (2) Hx of screening mammography: Comment: 01/01 [place] Code(s): Z92.89 - Personal history of other medical treatment (3) Abdominal pain: Comment: epigastric pain Code(s): R10.9 - Unspecified abdominal pain Plan: For chronic epigastric abdominal pain obtain abdominal ultrasound to rule out gallstone (4) Osteoporosis: Comment: 2017 T scores at [facility]: LS -4.0, hip -3.3. Alendronate started, stopped by patient around 2020 2022 T scores at [facility] LS -4.3, hip -2.0 Code(s): M81.0 - Age-related osteoporosis without current pathological fracture Plan: Patient was advised to take vitamin-D 3 supplement and Reclast infusion will be scheduled (5) Seropositive rheumatoid arthritis: Comment: Onset fall 2011. Rheumatoid factor, CCP Ab both markedly positive. Hand films show some x-ray changes July 2012.Methotrexate started 08/21. Enbrel added 08/22. Enbrel changed to Humira 10/23 Code(s): M05.9 - Rheumatoid arthritis with rheumatoid factor, unspecified Plan: Follow-up with rheumatology (6) Annual physical exam: Code(s): Z00.00 - Encounter for general adult medical examination without abnormal findings Orders: Orders MM screening mammo BI Today Z12.31 - Encounter for screening mammogram for malignant neoplasm of breast US abdomen complete Today R10.9 - Unspecified abdominal pain Comprehensive [place]. Panel Fast Today M81.0 - Age-related osteoporosis without current pathological fracture Complete Blood Count Auto Diff Today M81.0 - Age-related osteoporosis without current pathological fracture Erythrocyte Sedimentation Rate Today M81.0 - Age-related osteoporosis without current pathological fracture Hemoglobin A1c Today M81.0 - Age-related osteoporosis without current pathological fracture Vitamin D 25-OH Total Today M81.0 - Age-related osteoporosis without current pathological fracture Lipid Panel Today M81.0 - Age-related osteoporosis without current pathological fracture UA w Microscopic Today M81.0 - Age-related osteoporosis without current pathological fracture Referrals Cologuard Test Z12.11 - Encounter for screening for malignant neoplasm of colon, Z12.12 - Encounter for screening for malignant neoplasm of rectum Medications: New clobetasol 0.05% 1 appl topical BEDTIME 30 grams 0RF clobetasol 0.05% 1 appl topical BEDTIME 30 grams 0RF zoledronic gcqs-qazhlmov-fbxle 5 mg/100 mL (Reclast) 1 ea IV ONCE 100 mL 0RF Refilled omeprazole 20 mg PO DAILY 90 caps 3RF Coding Level of Care Code New Pt Prev Care 40-64y(03388) Diagnoses Normal pelvic exam Z01.419 Hx of screening mammography Z92.89 Abdominal pain R10.9 Osteoporosis M81.0 Seropositive rheumatoid arthritis M05.9 Annual physical exam Z00.00
[2023-06-24 07:44] VITALS: BP 136/85; PULSE 77; O2SAT 98; BMI 29.2
== END 2023-06-24 15:32 | disposition home or self-care (01) ==
PROVIDERS: PCP Internal Medicine; Visit Provider Internal Medicine
DX: Z00.00 Encounter for general adult medical examination without abnormal findings (principal); M05.9 Rheumatoid arthritis with rheumatoid factor, unspecified; Z92.89 Personal history of other medical treatment; R10.9 Unspecified abdominal pain; M81.0 Age-related osteoporosis without current pathological fracture
CPT/HCPCS: 99386

== ENCOUNTER 2023-06-25 09:16 | Outpatient (REF) | payer OTHER, SELFPAY ==
[2023-06-25 11:55] LABS: MANUAL DIFF FLAG NO
[2023-06-25 11:58] LABS: Basophils Absolute Auto 0.1 X10*3/uL (0.0-0.2); Basophils Percent Auto 0.9 % (0-2); Eosinophils Absolute Auto 0.4 X10*3/uL (0.0-0.4); Eosinophils Percent Auto 7.1 % (0-4); Hematocrit 40.3 % (37.0-47.0); Hemoglobin 13.5 g/dl (12.0-16.0); Imm Gran Abs Auto 0.01 X10*3/uL (0.00-0.03); Imm Gran Pct Auto 0.2 % (0.0-0.4); Lymphocytes Absolute Auto 3.3 X10*3/uL (1.2-4.9); Lymphocytes Percent Auto 56.4 % (20-40); Mean Corpuscular HGB Conc 33.5 g/dl (31.0-35.0); Mean Corpuscular Volume 86.5 fL (80.0-98.0); Mean Platelet Volume 11.3 fL (9.4-12.3); Monocytes Absolute Auto 0.5 X10*3/uL (0.1-1.2); Monocytes Percent Auto 8.3 % (2-11); Neutrophils Absolute Auto 1.6 x10*3/uL (2.0-8.3); Neutrophils Percent Auto 27.1 % (45-73); Platelet Count 229 X10*3/uL (160-400); Red Blood Count 4.66 X10*6/uL (4.20-5.50); White Blood Count 5.8 X10*3/uL (4.8-10.8)
[2023-06-25 12:09] LABS: Estimated Average Glucose 108 mg/dL; Hemoglobin A1C 117.7178 umol/L; Hemoglobin A1c % 5.4 % (<6.0)
[2023-06-25 12:33] LABS: Alanine Aminotransferase 21 U/L (0-31); Alkaline Phosphatase 89 U/L (39-117); Anion Gap 12 (12-20); Aspartate Amino Transferase 22 U/L (5-31); Bilirubin Total 0.4 mg/dL (0.0-1.0); Blood Urea Nitrogen 9 mg/dL (9-16); Calcium 9.2 mg/dL (8.4-10.2); Carbon Dioxide 26 mmol/L (22-29); Chloride 108 mmol/L (96-108); Cholesterol 182 mg/dL (<200); Estimated Glomerular Filt Rate > 60; Glucose Fasting 101 mg/dL (60-99); HDL Cholesterol 50 mg/dL (>40); LDL Cholesterol Calculated 110 mg/dL (<100); Potassium 4.5 mmol/L (3.3-5.1); Sodium 141 mmol/L (135-145); Total Protein 7.5 g/dL (6.5-8.0); Triglycerides 113 mg/dL (<150)
[2023-06-25 12:36] LABS: Appearance Urine Clear; Color Urine Yellow; Glucose Urine UA Negative (Negative); Leukocyte Esterase Urine Negative (Negative); Nitrite Urine Negative (Negative); Specific Gravity - Urine 1.015 (1.005-1.025); Urine Blood Negative (Negative); Urine Ketones Negative (Negative); Urine Protein Negative (Neg-Trace)
[2023-06-25 12:42] LABS: Bacteria Urine None Seen (None Seen); Hyaline Casts Urine 0-2 /LPF (0-2); RBC Urine 0-2 /HPF (0-2); Squamous Epithelial Cell Urine 0-2 /HPF (0-2); WBC Urine 0-5 /HPF (0-5)
[2023-06-25 12:52] LABS: Vitamin D 25-OH Total 48.3 ng/mL (>30)
[2023-06-25 14:22] LABS: Erythrocyte Sedimentation Rate 10 MM/HR (0-20)
== END 2023-06-25 09:17 | disposition home or self-care (01) ==
LOC: HO.HMGCLDS 09:16
PROVIDERS: PCP Internal Medicine; Visit Provider Internal Medicine
DX: M81.0 Age-related osteoporosis without current pathological fracture (principal)
CPT/HCPCS: 36415; 80053; 80061; 81001; 82306; 83036; 85025; 85652

== ENCOUNTER → 2023-08-04 12:45 | Outpatient (BNV) | payer OTHER, SELFPAY | PROVIDERS: PCP Internal Medicine; Visit Provider Radiology Diagnostic Radiology | DX: Z12.31 Encounter for screening mammogram for malignant neoplasm of breast (principal) | CPT/HCPCS: 77063; 77067 ==

== ENCOUNTER 2023-08-04 12:54 | Outpatient (REF) | payer OTHER, SELFPAY ==
--- NOTE | ~2023-08-04 | MM_ITS ---
EXAMINATION: MM SCREENING DIGITAL BREAST TOMOSYNTHESIS, BILATERAL CLINICAL INFORMATION: Screening. Asymptomatic. COMPARISON: Mammography: This study is compared with prior exams dating back to 2019. TECHNIQUE: Digital breast tomosynthesis is performed in both the craniocaudal and mediolateral oblique views along with computer-aided detection (CAD). Synthesized 2D images are generated from the tomosynthesis. FINDINGS: There are scattered areas of fibroglandular density (ACR BI-RADS breast composition Category b). There are no significant masses, abnormal calcifications, or other abnormalities. There is a tissue marker in a small, oval, mammographically benign mass of the medial aspect of the left breast. This indicates site of prior benign percutaneous biopsy. MM/MM tomosynthesis screening BI IMPRESSION: No mammographic evidence of malignancy. ASSESSMENT: BI-RADS BI-RADS 2 - Benign Findings RECOMMENDATION: Routine annual mammography screening. 1 year F/U This examination should not preclude the clinical evaluation of a suspicious palpable abnormality. This patient's information was entered into a reminder system with a target due date for their next mammogram.
== END 2023-08-04 12:55 | disposition home or self-care (01) ==
LOC: HO.MAMMO 12:54
PROVIDERS: PCP Internal Medicine; Visit Provider Internal Medicine
DX: Z12.31 Encounter for screening mammogram for malignant neoplasm of breast (principal)
CPT/HCPCS: 77063; 77067

== ENCOUNTER 2023-09-16 10:02 | Outpatient (REF) | payer OTHER, SELFPAY ==
--- NOTE | ~2023-09-16 | US_ITS ---
EXAMINATION: US ABDOMEN COMPLETE CLINICAL INFORMATION: Unspecified abdominal pain. Evaluate for cholelithiasis. COMPARISON: None available. TECHNIQUE: Real-time imaging of the abdominal viscera. FINDINGS: PANCREAS: Normal head and body, the tail is obscured by bowel gas. ABDOMINAL AORTA: The proximal, mid, and distal segments are normal in caliber. Mild atherosclerotic plaque is seen within the abdominal aorta. INFERIOR VENA CAVA: Visualized portions are normal. LIVER: The liver is enlarged. The right lobe measures 18.5 cm The liver contour is normal. There is slight diffuse increased liver parenchymal echogenicity, consistent with slight hepatic steatosis. No focal hepatic lesion. There is no intrahepatic biliary duct dilatation seen. GALLBLADDER: The gallbladder is physiologically distended. Multiple mobile gallstones are present. There is also question of a 1.7 x 1.8 x 1.9 cm sludge ball. No evidence of gallbladder wall thickening or pericholecystic fluid. No sonographic Connor's sign COMMON BILE DUCT: Normal in caliber measuring 0.4 cm in diameter. RIGHT KIDNEY: Normal. No hydronephrosis. No renal calculi or focal parenchymal lesions. The kidney measures 10.5 cm in maximum dimension. LEFT KIDNEY: Normal. No hydronephrosis. No renal calculi or focal parenchymal lesions. The kidney measures 11.1 cm in maximum dimension. SPLEEN: Normal. The spleen measures 11.1 cm in maximum dimension. FREE FLUID: None. US/US abdomen complete IMPRESSION: 1. Cholelithiasis without evidence of cholecystitis. 2. Hepatomegaly with slight increased echogenicity of the liver consistent with slight hepatic steatosis. 3. Mild atherosclerotic plaque is seen within the abdominal aorta.
== END 2023-09-16 10:03 | disposition home or self-care (01) ==
LOC: HO.HMGCX 10:02
PROVIDERS: PCP Internal Medicine; Visit Provider Internal Medicine
DX: R10.9 Unspecified abdominal pain (principal)
CPT/HCPCS: 76700

== ENCOUNTER 2023-10-28 13:50 | Outpatient (AMB) | payer OTHER, SELFPAY ==
[2023-10-28 13:54] VITALS: BP 134/82; PULSE 91; O2SAT 98; BMI 29.6
--- NOTE | 2023-10-28 13:54 | A.OFFPC_ITS ---
Vital Signs 10/28/23 13:54 Height 5 ft 3 in Weight 167 lb BMI 29.6 BP 134/82 Blood Pressure Location Lt brachial Position Sitting Pulse 91 Pulse Source Pulse Oximeter Pulse Oximetry (%) 98 Oxygen Delivery Method Room Air Intake Visit Reasons: Followup US results Intake Note: Pt is here today for a follow up visit. Allergies amoxicillin Allergy (Intermediate, Verified 10/28/23 13:57) Vomiting/diarrhea alendronate sodium [From Fosamax] Adverse Reaction (Intermediate, Verified 10/28/23 13:57) Heartburn Medication List - Last Reconciled 10/28/23 by Aure Caraballo MD albuterol sulfate 90 mcg/actuation 2 puffs inhalation Q6H PRN albuterol sulfate 2.5 mg inhalation Q4-6H PRN clobetasol 0.05% 1 appl topical BEDTIME Humira(CF) Pen (adalimumab) 40 mg (0.4 mL) subcut Q2W NS multivitamin 1 tab PO DAILY omeprazole 40 mg (2 x 20 mg) PO DAILY zoledronic ynal-[id number]-mvzqj 5 mg/100 mL (Reclast) 1 ea IV ONCE Tobacco use date assessed: 10/28/23 Dental Screening Dental Screen Date: 06/24/23 HPI Followup US results HPI Details Pt presents c/o persistent, getting worse epigastric abdominal discomfort, increased bloating, food regurgitation and heartburn on and off for the last month. Patient had episode of diarrhea for 3 days but denies blood in the stool, melena, fever chills nausea vomiting. She has a history of peptic ulcer disease about 20 years ago. Patient has increased the omeprazole dose to 40 mg for the last 3 days but did not notice any difference PFSH Medical History (Updated 10/28/23 @ 14:09 by Aure Caraballo MD) Rheumatoid arthritis flare Weight gain Trochanteric bursitis of right hip longterm current use of immunosuppressive drug Osteoporosis Seropositive rheumatoid arthritis Surgical History Hx of shoulder surgery Family History Father HTN (hypertension) Diabetes Afib Social History Household Members Other:: lives alone with disable person, Housing: Apartment Are you a primary regular senior care provider to a significant other at home: No Do you presently have visiting nurse or other home services: No Alcohol intake: current Alcohol intake frequency: 0-2 drinks per day Alcohol type: wine Patient Tobacco Use Status: Former Tobacco user Years Smoked: quit 2009 e-Cigarette/Vaping Use: Never Used service: No Current occupational status: employed 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 1. Little interest or pleasure in doing things: not at all 2. Feeling down, depressed, or hopeless: not at all 3. Trouble falling or staying asleep, or sleeping too much: not at all 4. Feeling tired or having little energy: not at all 5. Poor appetite or overeating: several days 6. Feeling bad about yourself - or that you are a failure or have let yourself or your family down: not at all 7. Trouble concentrating on things, such as reading the newspaper or watching television: not at all 8. Moving or speaking so slowly that other people could have noticed. Or the opposite - being so fidgety or restless that you have been moving around a lot more than usual: not at all 9. Thoughts that you would be better off or of hurting yourself in some way: several days Total score: 2 Depression Screening Interpretation: Negative Depression Screening Done: Yes Source: Developed by Drs. Marv Westbrook, Lillian Boudreaux, Santos Andrews and colleagues, with an educational tawny from [employer]. Thrive Questionnaire Date Thrive assessed: 10/28/23 I am a: Patient What is your living situation today?: I have a steady place to live Within the past 12 months, did the food you bought not last and you didn't have the money to get more?: Never true Within the past 12 months, did you worry whether your food would run out before you got money to buy more?: Never true Do you have trouble paying for medicines?: No Do you have trouble getting transportation to medical appointments?: No Do you have trouble paying your heating and electricity bill?: No Do you have trouble taking care of your child, family member or friend?: No Do you have trouble with day-to-day activities such as bathing, preparing meals, shopping, managing finances, etc.?: No Are you currently unemployed and looking for a job?: Yes Are you interested in more education?: I choose not to answer this question Please select the resources that you would like help with: Housing/[facility] Currently or been in a relationship where the following occur: I choose not to answer THRIVE Score: 0 AUDIT C Alcohol Use Questionnaire (AUDIT-C) 1. How often do you have a drink containing alcohol?: 2-3 times a week 2. How many drinks containing alcohol do you have on a typical day when you are drinking?: 3 or 4 3. How often do you have six or more drinks on one occasion?: Never Total Score: 4 FREDA-7 AMB Questionnaire FREDA-7 Date FREDA - 7 assessed: 10/28/23 Feeling nervous, anxious, or on edge: 0 = Not at all Not being able to stop or control worryin = Not at all Worrying too much about different things: 0 = Not at all Trouble relaxin = Several days Being so restless that it is hard to sit still: 0 = Not at all Becoming easily annoyed or irritable: 0 = Not at all Feeling afraid as if something awful might happen: 0 = Not at all Total FREDA-7 score (0-4 normal; 5-9 mild; 10-14 moderate; 15-21 severe): 1 Source: Developed by Drs. Marv Westbrook, Lillian Boudreaux, Santos Andrews and colleagues, with an educational tawny from [employer]. Review of Systems Const All systems reviewed & are unremarkable except as noted in HPI and below Eyes Reports no additional complaints ENT Reports no additional complaints Card Reports no additional complaints Resp Reports no additional complaints GI Reports no additional complaints Reports no additional complaints Physical exam (Primary Care) Vital Signs: Last Vital Signs Pulse 91 10/28/23 13:54 BP 134/82 10/28/23 13:54 Pulse Ox 98 10/28/23 13:54 Oxygen Delivery Method Room Air 10/28/23 13:54 BMI result Body Mass Index 29.6 Tobacco/Smoking Status: Tobacco use Status Tobacco use date assessed 10/28/23 10/28/23 14:01 Patient Tobacco Use Status Former Tobacco user 10/28/23 13:57 e-Cigarette/Vaping Use Never Used 10/28/23 13:57 PHQ-9: PHQ-9 Score PHQ-9: Total score 1 10/28/23 20:18 Depression Screening Interpretation: Negative Thrive Assessment: Date of Thrive Assessment Date Thrive assessed 10/28/23 10/28/23 14:01 Currently or been in a relationship where the following occur: I choose not to answer Const General: no acute distress HENMT Head: Yes normal to inspection Face and sinus: Yes normal facial exam Eyes General: appearance normal, both eyes and all related structures Neck Neck: Yes no lymphadenopathy and Yes supple Resp Effort & Inspection: normal respiratory effort Auscultation: clear to auscultation bilaterally Cardio Rhythm: regular rhythm Heart sounds: S1 normal heart sound present and S2 normal heart sound present GI Inspection: Yes normal to inspection Palpation (GI): Soft to palpation Percussion: Yes normal to percussion Auscultation: normal bowel sounds Speculum Exam - Vagina: normal appearance of the vagina Speculum Exam - Cervix: normal appearance of the cervix Bimanual exam- vagina & uterus: normal bimanual exam Bimanual Exam- Adnexa, other: normal adnexae Assessment and Plan Assessment & Plan (1) Abdominal pain: Comment: epigastric pain Code(s): R10.9 - Unspecified abdominal pain Plan: for chronic epigastric abd pain pt will increase Omeprazole to 40 mg, for IBS dicyclomine, refer to GI (2) GERD (gastroesophageal reflux disease): Code(s): K21.9 - Gastro-esophageal reflux disease without esophagitis Plan: anti GERD diet discussed (3) Normal pelvic exam: Comment: 2020 Code(s): Z01.419 - Encounter for gynecological examination (general) (routine) without abnormal findings Plan: PAP smear was done Orders: Orders PAP Smear 10/28/23 Z01.419 - Encounter for gynecological examination (general) (routine) without abnormal findings Referrals Gastroenterology Referral K21.9 - Gastro-esophageal reflux disease without esophagitis, R10.9 - Unspecified abdominal pain Medications: New dicyclomine 10 mg PO BID PRN 60 caps 0RF abdominal pain Changed From omeprazole 20 mg PO DAILY 90 caps 3RF To omeprazole 40 mg (2 x 20 mg) PO DAILY 180 caps 3RF Coding Level of Care Code Est Pt Level 4 (33824) Diagnoses Abdominal pain R10.9 GERD (gastroesophageal reflux disease) K21.9 Normal pelvic exam Z01.419
== END 2023-10-28 15:50 | disposition home or self-care (01) ==
PROVIDERS: PCP Internal Medicine; Visit Provider Internal Medicine
DX: R10.9 Unspecified abdominal pain (principal); K21.9 Gastro-esophageal reflux disease without esophagitis; Z01.419 Encounter for gynecological examination (general) (routine) without abnormal findings
CPT/HCPCS: 99214

== ENCOUNTER 2023-10-28 16:10 | Outpatient (REF) | payer OTHER, SELFPAY ==
[2023-11-01 09:58] LABS: HPV mRNA E6/E7 Not Detected (Not Detected)
== END 2023-10-28 16:11 | disposition home or self-care (01) ==
LOC: HO.LNP 16:10
PROVIDERS: Visit Provider Internal Medicine
DX: Z01.419 Encounter for gynecological examination (general) (routine) without abnormal findings (principal)
CPT/HCPCS: 87624; 88175

== ENCOUNTER 2023-11-02 12:20 | Outpatient (REF) | payer OTHER, SELFPAY ==
[2023-11-02 19:57] LABS: Leukocytes Stool Qualitative NEGATIVE (NEGATIVE)
[2023-11-03 12:07] LABS: Adenovirus F 40/41 Not Detected (Not Detect.); Astrovirus Not Detected (Not Detect.); Campylobacter Not Detected (Not Detect.); Cryptosporidium Not Detected (Not Detect.); Cyclospora cayetanensis Not Detected (Not Detect.); E. coli EAEC Not Detected (Not Detect.); E. coli EPEC Not Detected (Not Detect.); E. coli ETEC Not Detected (Not Detect.); E. coli STEC Not Detected (Not Detect.); Entamoeba histolytica Not Detected (Not Detect.); Giardia lamblia Not Detected (Not Detect.); Norovirus GI/GII Not Detected (Not Detect.); Plesiomonas shigelloides Not Detected (Not Detect.); Rotavirus A Not Detected (Not Detect.); Salmonella Not Detected (Not Detect.); Sapovirus Not Detected (Not Detect.); Shigella sp./EIEC Not Detected (Not Detect.); Vibrio Not Detected (Not Detect.); Vibrio Cholerae Not Detected (Not Detect.); Yersinia enterocolitica Not Detected (Not Detect.)
== END 2023-11-02 12:21 | disposition home or self-care (01) ==
LOC: HO.HMGCLNP 12:20
PROVIDERS: PCP Internal Medicine; Visit Provider Internal Medicine
DX: R19.7 Diarrhea, unspecified (principal)
CPT/HCPCS: 87329; 87507; 89055

== ENCOUNTER 2023-12-22 10:00 | Outpatient (AMB) | payer OTHER, SELFPAY ==
[2023-12-22 10:04] VITALS: BP 130/80; PULSE 89; O2SAT 96; BMI 30.1
--- NOTE | 2023-12-22 10:04 | A.OFFPC_ITS ---
Vital Signs 12/22/23 10:04 Height 5 ft 3 in Weight 170 lb BMI 30.1 BP 130/80 Blood Pressure Location Lt brachial Position Sitting Pulse 89 Pulse Source Pulse Oximeter Pulse Oximetry (%) 96 Oxygen Delivery Method Room Air Intake Visit Reasons: Foot ball Intake Note: Pt is here today for a sick visit. Pt c/o R foot pain. Allergies amoxicillin Allergy (Intermediate, Verified 12/22/23 10:14) Vomiting/diarrhea alendronate sodium [From Fosamax] Adverse Reaction (Intermediate, Verified 12/22/23 10:14) Heartburn Medication List - Last Reconciled 12/22/23 by Aure Caraballo MD albuterol sulfate 90 mcg/actuation 2 puffs inhalation Q6H PRN albuterol sulfate 2.5 mg inhalation Q4-6H PRN clobetasol 0.05% 1 appl topical BEDTIME dicyclomine 10 mg PO BID PRN Humira(CF) Pen (adalimumab) 40 mg (0.4 mL) subcut Q2W NS meloxicam 15 mg PO DAILY multivitamin 1 tab PO DAILY omeprazole 40 mg (2 x 20 mg) PO DAILY zoledronic dprb-cmcguolg-jpgvn 5 mg/100 mL (Reclast) 1 ea IV ONCE Tobacco use date assessed: 12/22/23 Dental Screening Dental Screen Date: 12/22/23 HPI Foot ball HPI Details Patient presents for the follow-up of chronic GERD and IBS improved after double dose of omeprazole. She has been tapering omeprazole down concerned about long-term side effects. She complains of pain and swelling on the right 5th MTP joint for a few weeks worse when walking. she has an appointment with engineer conductor next week to follow-up on RA. 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 Osteoporosis Seropositive rheumatoid arthritis Surgical History Hx of shoulder surgery Family History Father HTN (hypertension) Diabetes Afib Social History Household Members Other:: lives alone with disable person, Housing: Apartment Are you a primary child care center assistant director to a significant other at home: No Do you presently have visiting nurse or other home services: No 75 years or older and lives alone: No Alcohol intake: current Alcohol intake frequency: 0-2 drinks per day Alcohol type: wine Patient Tobacco Use Status: Former Tobacco user Years Smoked: quit 2009 e-Cigarette/Vaping Use: Never Used service: No Current occupational status: employed 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 1. Little interest or pleasure in doing things: not at all 2. Feeling down, depressed, or hopeless: not at all 3. Trouble falling or staying asleep, or sleeping too much: not at all 4. Feeling tired or having little energy: not at all 5. Poor appetite or overeating: several days 6. Feeling bad about yourself - or that you are a failure or have let yourself or your family down: not at all 7. Trouble concentrating on things, such as reading the newspaper or watching television: not at all 8. Moving or speaking so slowly that other people could have noticed. Or the opposite - being so fidgety or restless that you have been moving around a lot more than usual: not at all 9. Thoughts that you would be better off or of hurting yourself in some way: not at all Total score: 1 Depression Screening Interpretation: Negative Depression Screening Done: Yes 90676 - PHQ-9 Billing: Yes Source: Developed by Drs. Marv Westbrook, Lillian Boudreaux, Santos Andrews and colleagues, with an educational tawny from [email or web address]. Thrive Questionnaire Date Thrive assessed: 12/22/23 I am a: Patient What is your living situation today?: I have a steady place to live Within the past 12 months, did the food you bought not last and you didn't have the money to get more?: Never true Within the past 12 months, did you worry whether your food would run out before you got money to buy more?: Never true Do you have trouble paying for medicines?: No Do you have trouble getting transportation to medical appointments?: No Do you have trouble paying your heating and electricity bill?: No Do you have trouble taking care of your child, family member or friend?: No Do you have trouble with day-to-day activities such as bathing, preparing meals, shopping, managing finances, etc.?: No Are you currently unemployed and looking for a job?: Yes Are you interested in more education?: I choose not to answer this question Please select the resources that you would like help with: None Currently or been in a relationship where the following occur: I choose not to answer THRIVE Score: 0 AUDIT C Alcohol Use Questionnaire (AUDIT-C) 1. How often do you have a drink containing alcohol?: 2-3 times a week 2. How many drinks containing alcohol do you have on a typical day when you are drinking?: 3 or 4 3. How often do you have six or more drinks on one occasion?: Never Total Score: 4 FREDA-7 AMB Questionnaire FREDA-7 Date FREDA - 7 assessed: 12/22/23 Feeling nervous, anxious, or on edge: 0 = Not at all Not being able to stop or control worryin = Not at all Worrying too much about different things: 0 = Not at all Trouble relaxin = Several days Being so restless that it is hard to sit still: 0 = Not at all Becoming easily annoyed or irritable: 0 = Not at all Feeling afraid as if something awful might happen: 0 = Not at all Total FREDA-7 score (0-4 normal; 5-9 mild; 10-14 moderate; 15-21 severe): 1 Source: Developed by Drs. Marv Westbrook, Lillian Boudreaux, Santos Andrews and colleagues, with an educational tawny from [email or web address]. FREDA-7 Assessment Billing FREDA-7 Assessment Tool: FREDA-7 Assessment 97688 Review of Systems Const All systems reviewed & are unremarkable except as noted in HPI and below Eyes Reports no additional complaints ENT Reports no additional complaints Card Reports no additional complaints Resp Reports no additional complaints GI Reports no additional complaints Physical exam (Primary Care) Vital Signs: Last Vital Signs Pulse 89 12/22/23 10:04 BP 130/80 12/22/23 10:04 Pulse Ox 96 12/22/23 10:04 Oxygen Delivery Method Room Air 12/22/23 10:04 BMI result Body Mass Index 30.1 Tobacco/Smoking Status: Tobacco use Status Tobacco use date assessed 12/22/23 12/22/23 10:11 Patient Tobacco Use Status Former Tobacco user 12/22/23 10:11 e-Cigarette/Vaping Use Never Used 12/22/23 10:05 PHQ-9: PHQ-9 Score PHQ-9: Total score 1 12/22/23 10:11 Depression Screening Interpretation: Negative Thrive Assessment: Date of Thrive Assessment Date Thrive assessed 12/22/23 12/22/23 10:11 Currently or been in a relationship where the following occur: I choose not to answer Const General: no acute distress HENMT General nose exam: Normal external nose present Mouth: Normal oral and palatal mucosa present Resp Effort & Inspection: normal respiratory effort Auscultation: clear to auscultation bilaterally Cardio Rhythm: regular rhythm Heart sounds: S1 normal heart sound present and S2 normal heart sound present GI Inspection: Yes normal to inspection Palpation (GI): Soft to palpation Percussion: Yes normal to percussion Auscultation: normal bowel sounds Psych Other: R 5th MTP joint slight warmth deformity and tenderness Assessment and Plan Assessment & Plan (1) Annual physical exam: Code(s): Z00.00 - Encounter for general adult medical examination without abnormal findings Plan: Return for physical in June with a fasting labs before (2) Seropositive rheumatoid arthritis: Comment: Onset fall 2011. Rheumatoid factor, CCP Ab both markedly positive. Hand films show some x-ray changes July 2012.Methotrexate started 08/21. Enbrel added 08/22. Enbrel changed to Humira 10/23 Code(s): M05.9 - Rheumatoid arthritis with rheumatoid factor, unspecified Plan: Follow-up with rheumatology (3) Ex-smoker: Comment: 1 PPD x 20 yrs Code(s): Z87.891 - Personal history of nicotine dependence Plan: Referred to lung cancer screening program (4) Capsulitis of metatarsophalangeal (MTP) joint: Code(s): M77.50 - Other enthesopathy of unspecified foot and ankle Plan: Trial of meloxicam for 1 week (5) GERD (gastroesophageal reflux disease): Code(s): K21.9 - Gastro-esophageal reflux disease without esophagitis Plan: Patient would like to taper down PPI. She will follow-up with the GI for EGD and colonoscopy (6) Cholelithiasis: Comment: asymptomatic Code(s): K80.20 - Calculus of gallbladder without cholecystitis without obstruction Orders: Orders Complete Blood Count Auto Diff 6 Months M05.9 - Rheumatoid arthritis with rheumatoid factor, unspecified, Z00.00 - Encounter for general adult medical examination without abnormal findings Vitamin D 25-OH Total 6 Months M05.9 - Rheumatoid arthritis with rheumatoid factor, unspecified, Z00.00 - Encounter for general adult medical examination without abnormal findings Comprehensive Lopeno. Panel Fast 6 Months M05.9 - Rheumatoid arthritis with rheumatoid factor, unspecified, Z00.00 - Encounter for general adult medical examination without abnormal findings Lipid Panel 6 Months M05.9 - Rheumatoid arthritis with rheumatoid factor, unspecified, Z00.00 - Encounter for general adult medical examination without abnormal findings TSH reflex Free T4 6 Months M05.9 - Rheumatoid arthritis with rheumatoid factor, unspecified, Z00.00 - Encounter for general adult medical examination without abnormal findings Referrals Gastroenterology Referral K64.9 - Unspecified hemorrhoids Thoracic/General Surgery Referral Z87.891 - Personal history of nicotine depen dence Medications: New meloxicam 15 mg PO DAILY 7 tabs 0RF Discontinued dicyclomine Discontinued Reason: Doctor's Order 10 mg PO BID PRN 60 caps 0RF abdominal pain Coding Level of Care Code Est Pt Level 4 (78796) Diagnoses Annual physical exam Z00.00 Seropositive rheumatoid arthritis M05.9 Ex-smoker Z87.891 Capsulitis of metatarsophalangeal (MTP) joint M77.50 GERD (gastroesophageal reflux disease) K21.9 Cholelithiasis K80.20 Additional Codes FREDA-7 Assessment Billing - FREDA-7 Assessment Tool: FREDA-7 Assessment 34067 ([id number])
== END 2023-12-22 11:07 | disposition home or self-care (01) ==
PROVIDERS: PCP Internal Medicine; Visit Provider Internal Medicine
DX: M05.9 Rheumatoid arthritis with rheumatoid factor, unspecified (principal); Z87.891 Personal history of nicotine dependence; M77.50 Other enthesopathy of unspecified foot and ankle; K21.9 Gastro-esophageal reflux disease without esophagitis; K80.20 Calculus of gallbladder without cholecystitis without obstruction
CPT/HCPCS: 99214

== ENCOUNTER 2023-12-30 14:36 | Outpatient (REF) | payer OTHER, SELFPAY ==
[2023-12-30 17:10] LABS: HBS Num1 114.87 mIU/mL (0-7.99); HBc Num1 0.27 S/CO (0.00-0.79); HBsAGNum1 0.32 S/CO (0.00-0.99); Hepatitis A Antibody IgM 0.12 Index (0-0.79); Hepatitis B Core Antibody Nonreactive (Nonreactive); Hepatitis B Surface Antigen Negative (Negative); ~HepC Num1 0.29 S/CO (0.00-0.79); ~Hepatitis A Antibody IgM Nonreactive (Nonreactive); ~Hepatitis B Surface Antibody REACTIVE (Nonreactive); ~Hepatitis C Antibody Nonreactive (Nonreactive)
== END 2023-12-30 14:37 | disposition home or self-care (01) ==
LOC: HO.HMGCLDS 14:36
PROVIDERS: PCP Internal Medicine; Visit Provider Student in an Organized Health Care Education/Training Program
DX: Z11.59 Encounter for screening for other viral diseases (principal)
CPT/HCPCS: 36415; 86704; 86706; 86709; 86803; 87340

== ENCOUNTER 2024-01-02 16:02 | Outpatient (AMB) | payer OTHER, SELFPAY ==
[2024-01-02 16:06] VITALS: BP 132/80; PULSE 87; O2SAT 96; BMI 30.1
--- NOTE | 2024-01-02 16:06 | A.OFFVIS_ITS ---
Vital Signs 01/02/24 16:06 Height 5 ft 3 in Weight 170 lb BMI 30.1 BP 132/80 Blood Pressure Location Lt brachial Position Sitting Pulse 87 Pulse Source Pulse Oximeter Pulse Oximetry (%) 96 Oxygen Delivery Method Room Air Intake Visit Reasons: RA/cm Intake Note: Patient is here for follow up on RA Accompanied by: House mate Allergies amoxicillin Allergy (Intermediate, Verified 01/02/24 16:08) Vomiting/diarrhea alendronate sodium [From Fosamax] Adverse Reaction (Intermediate, Verified 01/02/24 16:08) Heartburn Medication List - Last Reconciled 01/02/24 by Lucy Driver MD albuterol sulfate 90 mcg/actuation 2 puffs inhalation Q6H PRN albuterol sulfate 2.5 mg inhalation Q4-6H PRN clobetasol 0.05% 1 appl topical BEDTIME Humira(CF) Pen (adalimumab) 40 mg (0.4 mL) subcut Q2W NS meloxicam 15 mg PO DAILY multivitamin 1 tab PO DAILY omeprazole 40 mg (2 x 20 mg) PO DAILY zoledronic nnfv-kbhzxqby-ttkjv 5 mg/100 mL (Reclast) 1 ea IV ONCE HPI Comments Details: This is a 58-year-old female with seropositive RA who presents for follow-up. She has not been seen in clinic since . She states that she does the Humira injection every 4 weeks. She states that she has been doing reasonably well overall. She states that she has been having some minimal right knee pain especially when standing up after sitting down for some time. She also has noticed that her right 5th toe is turning in worse and she also has some swelling and pain on the outer aspect of her right foot. Doing well otherwise. 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 Osteoporosis Seropositive rheumatoid arthritis Surgical History Hx of shoulder surgery Family History Father HTN (hypertension) Diabetes Afib Social History Household Members Other:: lives alone with disable person, Housing: Apartment Are you a primary critical care registered nurse to a significant other at home: No Do you presently have visiting nurse or other home services: No 75 years or older and lives alone: No Alcohol intake: current Alcohol intake frequency: 0-2 drinks per day Alcohol type: wine Patient Tobacco Use Status: Former Tobacco user Years Smoked: quit 2009 e-Cigarette/Vaping Use: Never Used service: No Current occupational status: employed 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 Cognitive needs: No Hearing needs: No Vision needs: Yes Review of Systems Musc Reports deformity, Reports arthralgias and Reports stiffness Physical Exam Vital Signs: Last Vital Signs Pulse 87 01/02/24 16:06 BP 132/80 01/02/24 16:06 Pulse Ox 96 01/02/24 16:06 Oxygen Delivery Method Room Air 01/02/24 16:06 BMI result Body Mass Index 30.1 Const General: cooperative, healthy appearing and comfortable Nutritional Appearance: overweight Orientation/consciousness: patient oriented x3 Limitations: no limitations HEENT Head: Yes normocephalic and Yes atraumatic Mouth: moist mucous membranes Resp Effort & Inspection: normal respiratory effort and able to speak in complete sentences Auscultation: clear to auscultation bilaterally Cardio Rate: regular rate Rhythm: regular rhythm Skin General skin exam: no rashes or lesions noted Neuro General: patient oriented x3 Extrem Other: Minimal osteoarthritic changes of both hands with no active synovitis Normal nailfold capillaroscopy Normal range of motion of hands, wrists, elbows and shoulders without pain Minimal right knee warmth without swelling Minimal right knee pain with full flexion Right foot bunionette, slightly erythematous Assessment & Plan Assessment & Plan (1) Seropositive rheumatoid arthritis: Comment: Onset fall 2011++RF+++CCP Hand films show some x-ray changes July 2012. MTX started 08/21. Enbrel added 08/22. Enbrel changed to Humira 10/23 Code(s): M05.9 - Rheumatoid arthritis with rheumatoid factor, unspecified Category: Medical Plan: This is a 58-year-old female with seropositive RA who presents for follow-up. This is her 1st visit with me. Patient is doing well on Humira 40 mg every 4 weeks. On exam I do not see any active synovitis. Recently patient has noticed some changes in her right 5th toe, she feels that her right 5th toe is turning inwards. She is spitting a spacer in between her 4th and 5th toes. On exam she has a bunionette. She wonders whether this is related to active RA. I think her RA is well controlled. Patient can consider advancing her Humira to 40 mg every 2 weeks for 3 months or so and monitor for improvement. If there is no improvement, can go back to 40 mg every 4 weeks. 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 Patient fully aware. Advised patient to seek medical care MILI if patient has an infection and advised patient to stop the medication until the infection is resolved. (3) Osteoporosis: Code(s): M81.0 - Age-related osteoporosis without current pathological fracture Category: Medical Plan: Managed by Dr. Caraballo. Received Reclast this year Plan I spent 30 minutes reviewing patient's chart, evaluating patient, ordering diagnostic workup, counseling patient and documenting in the chart Orders: Orders Comprehensive Met. Panel 6 Months Z11.7 - Encounter for testing for latent tuberculosis infection Erythrocyte Sedimentation Rate 6 Months Z11.7 - Encounter for testing for latent tuberculosis infection Complete Blood Count Auto Diff 6 Months Z11.7 - Encounter for testing for latent tuberculosis infection C Reactive Protein 6 Months Z11.7 - Encounter for testing for latent tuberculosis infection Medications: Refilled Humira(CF) Pen (adalimumab) 40 mg (0.4 mL) subcut Q2W 2 ea 5RF NS M05.9 - Rheumatoid arthritis with rheumatoid factor, unspecified Coding Level of Care Code Est Pt Level 4 (74541) Diagnoses Seropositive rheumatoid arthritis M05.9 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
== END 2024-01-02 16:46 | disposition home or self-care (01) ==
PROVIDERS: PCP Internal Medicine; Visit Provider Student in an Organized Health Care Education/Training Program
DX: M05.79 Rheumatoid arthritis with rheumatoid factor of multiple sites without organ or systems involvement (principal); Z79.899 Other long term (current) drug therapy; M81.0 Age-related osteoporosis without current pathological fracture
CPT/HCPCS: 99214

== ENCOUNTER → 2024-01-02 16:02 | Outpatient (BNVA) | payer OTHER, SELFPAY | PROVIDERS: PCP Internal Medicine; Visit Provider Student in an Organized Health Care Education/Training Program | DX: M05.9 Rheumatoid arthritis with rheumatoid factor, unspecified (principal); M81.0 Age-related osteoporosis without current pathological fracture; Z79.899 Other long term (current) drug therapy | CPT/HCPCS: 99212 ==

== ENCOUNTER → 2024-01-04 13:00 | Outpatient (BNVA) | payer OTHER, SELFPAY | PROVIDERS: PCP Internal Medicine; Visit Provider Internal Medicine | DX: K21.9 Gastro-esophageal reflux disease without esophagitis (principal); R10.9 Unspecified abdominal pain | CPT/HCPCS: 99202 ==

== ENCOUNTER → 2024-01-04 13:00 | Outpatient (AMB) | payer OTHER, SELFPAY ==
--- NOTE | 2024-01-04 13:04 | MHC.OFFVIS ---
Vital Signs 01/04/24 13:05 Height 5 ft 3 in Weight 169 lb 12.095 oz BMI 30.1 BP 166/90 H Blood Pressure Location Lt brachial Position Sitting Intake Visit Reasons: Abdominal Pains, GERD Intake Note: Ghislaine presents in the office as a new patient for abdominal pains, GERD. CC: Allergies amoxicillin Allergy (Intermediate, Verified 01/04/24 13:05) Vomiting/diarrhea alendronate sodium [From Fosamax] Adverse Reaction (Intermediate, Verified 01/04/24 13:05) Heartburn HPI Comments Details: 58 y.o F with PMH of RA on Humira who is here for epigastric pain. Reports that has episodes of severe epigastric pain with bloating sylvia if she mixes dairy with a soda such as ice cream followed by gingerale or having soda after a cheese snack. Pain is severe where she is unable to sit still. Takes tums 4-6 times a day for this. Episode is distressful to the pt who then panics and worries shes having a heart attack. No fam hx of crc. Gets cologuard - last cologuard june 2023. PFSH Medical History (Updated 01/02/24 @ 16:56 by Lucy Driver MD) Weight gain Trochanteric bursitis of right hip retirement current use of immunosuppressive drug Osteoporosis Seropositive rheumatoid arthritis Surgical History Hx of shoulder surgery Family History Father HTN (hypertension) Diabetes Afib Social History Household Members Other:: lives alone with disable person, Housing: Apartment Are you a primary care transition mgr to a significant other at home: No Do you presently have visiting nurse or other home services: No 75 years or older and lives alone: No Alcohol intake: current Alcohol intake frequency: 0-2 drinks per day Alcohol type: wine Patient Tobacco Use Status: Former Tobacco user Years Smoked: quit 2009 e-Cigarette/Vaping Use: Never Used service: No Current occupational status: employed 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 Cognitive needs: No Hearing needs: No Vision needs: Yes Review of Systems Const All systems reviewed & are unremarkable except as noted in HPI and below Physical Exam Vital Signs: Last Vital Signs BP 166/90 H 01/04/24 13:05 BMI result Body Mass Index 30.1 No apparent distress Nonicteric Abdomen soft, nondistended Alert and oriented x3, normal gait Assessment & Plan Assessment & Plan (1) GERD (gastroesophageal reflux disease): Code(s): K21.9 - Gastro-esophageal reflux disease without esophagitis Category: Medical (2) Abdominal pain: Comment: epigastric pain Code(s): R10.9 - Unspecified abdominal pain Category: Medical Plan Abd pain now resolved since starting PPI. Possible Ddx include PUD, gastritis, esophagitis. Plan: - Cont PPI - Check barium esophagogram - EGD if thats negative Orders: Orders FL barium swallow Today K21.9 - Gastro-esophageal reflux disease without esophagitis Coding Level of Care Code New Pt Level 3 (51946) Diagnoses GERD (gastroesophageal reflux disease) K21.9 Abdominal pain R10.9
[2024-01-04 13:05] VITALS: BP 166/90; BMI 30.1
== END ==
PROVIDERS: PCP Internal Medicine; Visit Provider Internal Medicine
DX: K21.9 Gastro-esophageal reflux disease without esophagitis (principal); R10.9 Unspecified abdominal pain
CPT/HCPCS: 99203

== ENCOUNTER 2024-03-16 09:39 | Outpatient (AMB) | payer OTHER, SELFPAY ==
--- NOTE | 2024-03-16 07:48 | A.OFFVIS_ITS ---
Intake Visit Reasons: Former Smoker Allergies amoxicillin Allergy (Intermediate, Verified 01/04/24 13:05) Vomiting/diarrhea alendronate sodium [From Fosamax] Adverse Reaction (Intermediate, Verified 01/04/24 13:05) Heartburn HPI HPI Former Smoker: Details: Initial visit for this 58yo former smoker with a 30PYH. Patient started smoking at age 14 for 30 years at 1ppd. She quit 14 years ago in 04/04/2010. . Denies regular marijuana use. Denies second hand smoke exposure. Denies exposure to chemicals or substances like asbestos. . Denies known family history of lung cancer. Denies personal history of cancers. Denies chest CT in last year. . Denies recent travel outside the [place]. Denies recent respiratory illness or recent hospitalization for respiratory issues. Pneumonia 7 years ago. Reports testing positive for COVID x 5. Admits receiving COVID Vaccine. . Reports chronic dry cough - when laying down. Denies fever, chills, new/worsening cough, hemoptysis, hoarseness or dysphagia. Denies significant chest pain, significant dyspnea or unintentional weight loss. Patient Lung Cancer Screening Questionnaire reviewed with patient by provider. . Shared Decision Making Completed. Patient meets criteria. Discussed in detail with patient, the risk vs benefit of LDCT screening. Patient consents to proceed with scan. Discussed and encouraged continued smoking cessation. 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 Osteoporosis Seropositive rheumatoid arthritis (~2011) Surgical History Hx of shoulder surgery Family History (Updated 02/09/24 @ 08:55 by Opal Pennington PA-C) Father HTN (hypertension) Diabetes Afib Lymphoma Paternal Grandmother Breast cancer Paternal Aunt Breast cancer Brother Ankylosing spondylitis Social History (Updated 03/16/24 @ 10:07 by Opal Pennington PA-C) Household Members Other:: lives alone with disable person, Housing: Apartment Are you a primary care clinician to a significant other at home: No Do you presently have visiting nurse or other home services: No Alcohol intake: current Alcohol intake frequency: 0-2 drinks per day Alcohol type: wine Patient Tobacco Use Status: Former Tobacco user Years Smoked: (onset 14yo, 1ppd x 30yrs, 30pyh - quit 04/04/2010) e-Cigarette/Vaping Use: Never Used service: No Current occupational status: employed 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 - Patient meets criteria for LDCT for lung cancer screening purposes and is asymptomatic. - Smoking cessation counseling offered. Patients can always call [phone]. - Will arrange for a LDCT scan of the chest for screening purposes at [facility]. - Risks, benefits, and alternatives were discussed in detail and the patient agrees to proceed. - Risks discussed include but are not limited to: radiation exposure, anxiety during testing and while awaiting results, false negatives, false positives and possibility of additional intervention such as further imaging or surgical procedures for benign disease. - Benefits are obviously detection of lung cancer at an early stage which can lead to improved outcomes. - Discussed the importance of screening program compliance with adherence to yearly LDCT scan as scheduled - or sooner interval scans for personalized screening regimen. - Discussed follow up plan. Our office will send a letter discussing results and if needed set up phone call and office visit based on CT findings. - Patient educated on results categorization and the management decisions for suspicious findings potentially found on the screening LDCT scan. Any patient with a Lung RADS score of 3 or 4 will be reviewed by a multidisciplinary team at [facility] to form a plan of action in regards to scan findings. - If further work up is warranted for a suspicious lung finding this will be followed by the Lung Cancer Screening program in conjunction with the Thoracic Surgery Department at [facility]. - A copy of the office note and LDCT will be sent to the patient's PCP - as well as documentation on any associated further plans of care. - Incidental findings on LDCT are the PCP's responsibility. These findings are indicated with an S finding on the LDCT Assessment. A note discussing the findings will be sent to the PCP who is then responsible for further management. - All questions answered.? Coding Level of Care Code Lung Cancer Screening G0296 Diagnoses Personal history of nicotine dependence Z87.891
--- OUTSIDE RECORDS SUMMARY | 2024-03-21 07:05 | XMS_ITS | Patient Health Record ---
Author Organization [facility] Address [address] [place] [address] Care Team Providers Care Steel Rule Die Maker Name Role Phone Aure Caraballo MD Primary Care Provider Ruth Garcia Unavailable [phone] Reason For Referral No Information Encounters Encounter Location Date Provider Diagnosis [address] [address] 02/21/2024 Ruth Le Plan Of Treatment Next Appt Details Provider Name:Ruth wang, 04/16/2024 09:30:00 AM, [address] [place], [address],
--- OUTSIDE RECORDS SUMMARY | 2024-03-21 07:05 | XMS_ITS ---
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 Generated for Lito urrutia/Tricia/eTransmitting on:?03/21/2024 07:05 AM EST
== END 2024-03-16 13:27 | disposition home or self-care (01) ==
PROVIDERS: PCP Internal Medicine; Visit Provider Physician Assistant Medical
DX: Z87.891 Personal history of nicotine dependence (principal)
CPT/HCPCS: G0296

== ENCOUNTER 2024-03-16 10:06 | Outpatient (REF) | payer OTHER, SELFPAY ==
--- NOTE | ~2024-03-16 | CT_ITS ---
EXAMINATION: CT LOW-DOSE SCREENING CHEST WITHOUT CONTRAST CLINICAL INFORMATION: Personal history of nicotine dependence. The patient has a 62 pack-year history of smoking, having quit 14 years ago. COMPARISON: None available. TECHNIQUE: Multidetector volumetric CT imaging of the chest is performed on a Siemens SOMATOM Definition scanner without contrast using low dose technique. Additional 2D coronal and sagittal reformatted images and axial 3D maximum intensity projection (MIP) images are generated on the CT workstation. This CT examination was performed using dose optimization techniques as appropriate, variously including the following: *Automated exposure control *Adjustment of mA and/or kV according to patient size (this includes techniques or standardized protocols for targeted exams where dose is matched to indication/reason for exam; i.e. extremities or head) *Use of iterative reconstruction technique TOTAL EXAM DLP: 75 mGy-cm. CTDIvol: 2.42 mGy. FINDINGS: PULMONARY NODULES: No suspicious pulmonary nodules. A tiny benign, calcified granuloma is incidentally noted medially within the right upper lobe (5:199). LUNGS: Lungs bilaterally symmetrically expanded. No effusion or pneumothorax. Central airways patent. MEDIASTINUM: No mediastinal, hilar or axillary adenopathy or free fluid collection. CORONARY ARTERY CALCIFICATION: None visualized on this study. THYROID GLAND: Unremarkable to the extent seen. CARDIOVASCULAR STRUCTURES: Aortic and heart size normal. There is mild atherosclerotic calcification of the thoracic aortic arch. No pericardial effusion. CHEST WALL/AXILLA: Unremarkable. UPPER ABDOMEN: Included portions of the solid organs in the upper abdomen unremarkable on noncontrast imaging. OSSEOUS STRUCTURES: There is marked endplate arthropathy at T10-11. No acute or aggressive osseous finding is noted. CT/CT lung screening IMPRESSION: Unremarkable examination. ASSESSMENT: 1. Lung-RADS Category 1: Negative. There are no nodules or there are definitely benign nodules. N/A 2. Lung-RADS Category S: Negative. There are no clinically significant or potentially clinically significant findings not related to the lungs requiring urgent additional evaluation. RECOMMENDATION: Continued routine annual low-dose CT lung screening in 1 year is recommended. An order for CT CHEST LOW DOSE CANCER SCREENING ([id number]) can be placed. Electronically signed by: Redd Freeamn MD 05/09/2024 09:39 AM [facility]
--- OUTSIDE RECORDS SUMMARY | 2024-03-21 07:16 | XMS_ITS | Continuity of Care Document ---
Author Organization [facility] Address [address] [place] [address] [address] [place] [address] Phone Care Team Providers Care Warehouse Worker Name Role Phone Briana Durán NP Unavailable [...] Providers Copied on Encounter [facility], [address] [place] [address] [address], [place], [id number], [place] tel:[phone] CV[facility] - [place] - [facility] - (Telangiect denise) [address] . [address], [address], [place], [place], [id number] , [place]. tel:[phone] Referring Provider: [facility] Reva, [address], [place], [address]. tel:[phone] Family History Family Member Type Diagnosis Age At Onset No Information Payers Payer name Insurance type Covered democrat ID Authoriza tion(s) [facility] S[employer] CI [id number] Social History Type Description Quantity Date Captured [...]
== END 2024-03-16 10:07 | disposition home or self-care (01) ==
LOC: HO.CT 10:06
PROVIDERS: PCP Internal Medicine; Visit Provider Physician Assistant Medical
DX: Z12.2 Encounter for screening for malignant neoplasm of respiratory organs (principal); Z87.891 Personal history of nicotine dependence
CPT/HCPCS: 71271; G0296

== ENCOUNTER 2024-06-07 09:06 | Outpatient (REF) | payer OTHER, SELFPAY ==
--- OUTSIDE RECORDS SUMMARY | 2024-06-07 11:58 | XMS_ITS | Clinical Summary ---
Author Organization 175 [facility] Address [address] [place] [address] Phone Care Team Providers Care Hand Scraper Name Role Phone Aure Caraballo MD Primary Care Provider [phone] Allergies Active Allergy Reactions Criticality Noted Date [...] We will try to get records from [facility]. History of COVID-19 12/01/2020 Overview (04/24/2024): February [...] WHI. I discussed risks including cardiovascular disease- [place], DVT, stroke. I discussed small increased risk [...] Name Administration Dates Next Due Hepatitis B (Akddsaf-G-Pvldd , Recombivax HB-Adult) 19yo and older 02/18/2005,05/29/2004,04/24/2004 [...] AM EST Office Visit Orthopedic Surgery - [place] [address] 175 [facility] [address] [place] [phone] Shantanu Connell, ESSIE [address] [address] Health Maintenance Due Date Last Done Comments [...] Screening (11/01/2017) Hepatitis C Screening abstracted Result [facility] Provider HEALTH MAINTENANCE Final Result * Pap smear (11/01/2017) 11/01/2017 Narrative HISTORICAL TESTING LAB RESULTING AGENCY - 11/04/2017 4:54 PM EDT [id number] THINPREP PAP, IMAGED: NEGATIVE FOR SQUAMOUS INTRAEPITHELIAL [...] should be classified as having osteoporosis. The [facility] Department of Internal Medicine recommends using National [...] Muñoz should beclassified as having osteoporosis. The [facility] Department of Internal Medicine recommendsusing National Osteoporosis [...] of fracture risk by FRAX. Johny BAIRES [facility] DXA PROCEDURES Final Result from Last 3 Months or Most Recently Relevant to Health Maintenance Insurance [facility] [employer] Care Teams Hand Scraper Relationship Specialty Start Date End Date Aure Caraballo MD PCP - General Internal Medicine 03/06/24
[2024-06-07 14:44] LABS: Influenza A PCR NEGATIVE (Negative); Influenza B PCR NEGATIVE (Negative); Resp Syncy Virus RNA Qual PCR NEGATIVE (Negative); SARS COV2 PCR INHOUSE NEGATIVE (Negative)
== END 2024-06-07 09:07 | disposition home or self-care (01) ==
LOC: HO.LAB 09:06
PROVIDERS: PCP Internal Medicine; Visit Provider Nurse Practitioner Family
DX: J06.9 Acute upper respiratory infection, unspecified (principal)
CPT/HCPCS: 0241U; 99212

== ENCOUNTER 2024-06-07 09:06 | Outpatient (AMB) | payer OTHER, SELFPAY ==
--- NOTE | 2024-06-07 09:46 | AM.OFFWIN_ITS ---
Intake Vital Signs 06/07/24 09:50 Weight 180 lb 8 oz BP 138/80 Blood Pressure Location Rt brachial Position Sitting Pulse 102 H Pulse Source Pulse Oximeter Temp 98 F Temp Source Oral Pulse Oximetry (%) 96 Oxygen Delivery Method Room Air Intake Visit Reasons: EP-all left sinus [phone] Intake Note: Patient here for sinus pain/pressure that has been present for about 4 days, Patient Tobacco Use Status: Former Tobacco user Allergies amoxicillin Allergy (Intermediate, Verified 06/07/24 09:48) Vomiting/diarrhea alendronate sodium [From Fosamax] Adverse Reaction (Intermediate, Verified 06/07/24 09:48) Heartburn HPI HPI Comments History of Present Illness Details 58 y/o female patient who presents to [facility] walk in clinic with c/o Sinus pressure and congestion for 4 days now. She likes to Pick her nose routinely. [facility] Medical History (Updated 06/07/24 @ 10:06 by Chanelle Edward NP) Acute respiratory disease Personal history of nicotine dependence Weight gain Trochanteric bursitis of right hip custodial current use of immunosuppressive drug Osteoporosis Seropositive rheumatoid arthritis (~2011) Surgical History Hx of shoulder surgery Family History (Updated 02/09/24 @ 08:55 by Opal Pennington PA-C) Father HTN (hypertension) Diabetes Afib Lymphoma Paternal Grandmother Breast cancer Paternal Aunt Breast cancer Brother Ankylosing spondylitis Social History (Updated 03/16/24 @ 10:07 by Opal Pennington PA-C) Household Members Other:: lives alone with disable person, Housing: Apartment Are you a primary healthcare representative to a significant other at home: No Do you presently have visiting nurse or other home services: No 75 years or older and lives alone: No Alcohol intake: current Alcohol intake frequency: 0-2 drinks per day Alcohol type: wine Patient Tobacco Use Status: Former Tobacco user Years Smoked: (onset 14yo, 1ppd x 30yrs, 30pyh - quit 04/04/2010) e-Cigarette/Vaping Use: Never Used service: No Current occupational status: employed 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 Cognitive needs: No Hearing needs: No Vision needs: Yes Review of Systems Const All systems reviewed & are unremarkable except as noted in HPI and below Physical Exam Vital Signs: Last Vital Signs Temp 98 F 06/07/24 09:50 Pulse 102 H 06/07/24 09:50 BP 138/80 06/07/24 09:50 Pulse Ox 96 06/07/24 09:50 Oxygen Delivery Method Room Air 06/07/24 09:50 Const General: cooperative and no acute distress Orientation/consciousness: patient oriented x3 HEENT Head: Yes normocephalic Ears: external ears normal and TM abnormal with fluid behind the TM General nose exam: Abnormal mucous membranes and turbinates present boggy and erythematous Face and sinus: Yes sinus tenderness Mouth: moist mucous membranes Throat: Yes uvula midline Resp Effort & Inspection: normal respiratory effort and able to speak in complete sentences Auscultation: clear to auscultation bilaterally, no crackles, no rales, no rhonchi and no wheezes Cardio Heart sounds: S1 normal heart sound present and S2 normal heart sound present Neuro General: patient oriented x3 Assessment & Plan Assessment & Plan (1) Acute respiratory disease: Code(s): J06.9 - Acute upper respiratory infection, unspecified Plan: Ordered SARs Ordered Sudafed and Nasal decongestant. Orders: Orders SARS-CoV2/FLU/RSV Today J06.9 - Acute upper respiratory infection, unspecified Medications: New pseudoephedrine HCl ER (Sudafed 12 Hour) 120 mg PO Q12H 30 tabs 0RF J06.9 - Acute upper respiratory infection, unspecified, J34.89 - Other specified disorders of nose and nasal sinuses budesonide 32 mcg/actuation administer into each nostril 1 spray intranasal BID 8.43 mL 0RF J06.9 - Acute upper respiratory infection, unspecified, J34.89 - Other specified disorders of nose and nasal sinuses Coding Level of Care Code Est Pt Level 4 (46470) Diagnoses Acute respiratory disease J06.9 Time Spent (min) 20
[2024-06-07 09:50] VITALS: BP 138/80; PULSE 102; TEMP 36.6; O2SAT 96
--- OUTSIDE RECORDS SUMMARY | 2024-06-07 09:50 | XMS_ITS ---
Author Organization [facility] Address [address] [place] [address] Care Team Providers Care Stick Feeder Name Role Phone Aure Caraballo MD Primary Care Provider Lionela Ruth August [phone] REASON FOR VISIT SUBEDITOR Encounters Encounter Location Date Provider Diagnosis [facility] [address] [place] [address] 02/21/2024 Ruth Le Plan Of Treatment No Information Progress Notes * Bong CHINB:1965 ([age] yo F)Acc No.[id number]:02/21/2024 Patient:?Ghislaine CHIN :1965???Age:58 Y???Sex:Female Address:[address] [place] [address], [phone] * true * Date:? Generated for Lito urrutia/Tricia/eTransmitting on:?06/07/2024 09:50 AM EST
--- OUTSIDE RECORDS SUMMARY | 2024-06-07 09:50 | XMS_ITS ---
Author Organization [facility] Address [address] [place] [address] Care Team Providers Care Submarine Worker Name Role Phone Rashmi LEIVA, Aure Primary Care Provider Ruth Garcia [phone] Encounters Encounter Location Date Provider Diagnosis [facility] [address] [place] [address] 04/16/2024 Ruth Le Plan Of Treatment No Information Progress Notes * Glenn MCCRARYaDOB:1965 ([age] yo F)Acc No.[id number]:04/16/2024 Progress Notes Patient:?Ghislaine MCCRARY Provider:?Ruth Le DPM :1965???Age:58 Y???Sex:Female D ate:04/16/2024 Address:[address] [place] [phone] Pcp:Aure Caraballo MD Subjective: * Chief Complaints: * ??? * Medical History:? Objective: * Vitals:? Assessment: Plan: * Treatment: * Images: * The named appointment provid er may or may not be the originator of this progress note, and it is not deemed complete until electronically signed by the appointment provider. Sign off status: Pending * Provider:?Ruth Le DPM Date:?0 04/16/2024 Generated for Lito urrutia/Tricia/Frannyitting on:?06/07/2024 09:50 AM EST
--- OUTSIDE RECORDS SUMMARY | 2024-06-07 09:50 | XMS_ITS | Patient Health Record ---
Author Organization [facility] Address [address] [place] [address] Care Team Providers Care Cupboard Builder Name Role Phone Aure Caraballo MD Primary Care Provider Ruth Garcia Unavailable [phone] Reason For Referral No Information Encounters Encounter Location Date Provider Diagnosis [facility] [address] [place] [address] 02/21/2024 Ruth Le Plan Of Treatment No Information
--- OUTSIDE RECORDS SUMMARY | 2024-06-07 09:50 | XMS_ITS | Clinical Summary ---
Author Organization 175 [facility] Address [address] [place] [address] Phone Care Team Providers Care Chief Chemist Name Role Phone Aure Caraballo MD Primary Care Provider Allergies Active Allergy Reactions Criticality Noted Date Comments Amoxicillin Trihydrate 04/24/2024 Medications reservoir inhalation (INSPIREASE) device Dispense one spacer to use with inhaler 6 Active adalimumab (Humira,CF, Pen) 40 mg/0.4 mL pen Inject 40 mg into the skin every 14 days. 1 Active albuterol 2.5 mg /3 mL (0.083 %) nebulizer solution Take 1 Vial by nebulization every 4 hours as needed for Wheezing for up to 180 days. 8 Active alendronate (FOSAMAX) 70 mg tablet Take 1 tablet (70 mg total) by mouth 1 (one) time per week. 3 Active folic acid (FOLVITE) 1 mg tablet Take 1 tablet (1,000 mcg total) by mouth 1 (one) time each day. 1 Active methotrexate 2.5 mg tablet Take 6 tablets (15 mg total) by mouth 1 (one) time per week 1 Active omeprazole (PriLOSEC) [address] capsule Take 1 capsule (20 mg total) by mouth 1 (one) time each day. 3 Active Active Problems Problem Noted Date Diagnosed Date Sinus tachycardia 09/27/2022 Palpitations 06/28/2022 Overview (04/24/2024): Last Assessment & Plan: Need to further define whether the episode was sinus tachycardia or some type of supraventricular arrhythmia. We will try to get records from [facility]. History of COVID-19 12/01/2020 Overview (04/24/2024): February 2020: Did well without hospitalization in spite of being on methotrexate and Humira. Received vaccine in May and June 2020 Other hyperlipidemia 10/08/2019 Vasomotor symptoms due to menopause 10/11/2018 Overview (04/24/2024): Last Assessment & Plan: Counseled the patient re: options for treatment of vasomotor sx. Explained there are herbal supplements which have not been shown to be effective over placebo and are not FDA monitored for dose and side effect, but can be helpful for some women. Also discussed option for Paxil, Effexor and Clonidine and reviewed their expected SE. I discussed hormone therapy and reviewed the findings of the WHI. I discussed risks including cardiovascular disease- [place], DVT, stroke. I discussed small increased risk of breast cancer in women with uterus who use progestin for endometrial protection. I explained risk of DVT can be decreased by taking estradiol transdermally. I explained that risk of heart disease in WHI was highest in women who were 10 years or more out from menopause. She was counseled that I would generally recommend trying a non-hormonal method without cardiovascular risks first. If she should desire HRT, I explained follow up generally includes initial follow up in 3 months, followed by yearly assessment of risks and consideration of tapering and discontinuation. I explained there is no age that is concretely recommended to discontinue therapy, but that the general recommendation is to use the smallest dose for the shortest period of time to alleviate symptoms. Weaning is performed very slowly to help prevent recurrence of symptoms. She voiced understanding of my counseling and desired to read more about it. I provided ACOG Practice Bulletin Management of Menopausal Symptoms. She will call. Osteoporosis 07/22/2017 Overview (04/24/2024): July 2017 BONE DENSITY ??Lumbar Spine T-score is -4.0 (SD relative to 20-29 y/o adult) Z-score is -3.1 (SD relative to age matched peers) Left Hip T-score is -3.3 Z-score is -2.4 Alendronate started 07/27 Gastroesophageal reflux disease without esophagi tis 05/24/2017 Calculus of gallbladder with out cholecystitis without obstruction 01/09/2015 COPD, mild 10/14/2014 Seropositive rheumatoid arthritis of multiple si phuc 08/18/2012 Overview (04/24/2024): Onset fall 2011. Rheumatoid factor, CCP Ab both markedly positive. Hand films show some x-ray changes July 2012.Methotrexate started 08/21. Enbrel added 08/22. Enbrel changed to Humira 10/23 IBS (irritable bowel syndrome) 10/24/2008 Idiopathic scoliosis and kyphoscoliosis 02/29/20 Overview (04/24/2024): mild Immunizations Name Administration Dates Next Due Hepatitis B (Jjprdio-T-Idwle , Recombivax HB-Adult) 19yo and older 02/18/2005,05/29/2004,04/24/2004 Influenza Quadravalent, MDCK , 0.5ml, with preservative (Flucelvax) 6mo and older 12/14/2016 Influenza trivalent, with pr eservative (Fluzone; Afluria) 6mo and older 12/31/2020,01/01/2020,01/15/2016,12/24,01/24/2013 Influenza, Unspecified 01/01/2022,2019,12/17/2018,12/17 PPD Test 09/13/2018, 8,06/29/2016,05/27,05/16/2014,04/20/2013,04/12/2013 Pfizer SARS-CoV-2 COVID-19, mRNA, LNP-S, preservative free 01/22/2021,06/11/2020 Pneumococcal polysaccharide 23 valent (Pneumovax 23) 2yo and older 01/03/2015 Td, Unspecified 04/24/2004 Tdap Tetanus diptheria acell ular pertussis (Boostrix; Adacel) 7yo and older 08/20/2020,10/24/2008 Surgical History Surgery Date Site/Laterality Comments TONSILLECTOMY PROCEDURE: HISTORICAL TONSILLECTOMY HERNIA REPAIR Bilateral PROCEDURE: HISTORICAL HERNIA REPAIR/ING; COMMENT: age 6 - inguinal hernias SHOULDER SURGERY 1993, 10/24 Bilateral PROCEDURE: HISTORICAL SHOULDER SURGERY; COMMENT: right, left for dislocations CERVICAL BIOPSY W/ LOOP ELECTRODE EXCISION PROCEDURE: HISTORICAL CONE BIOPSY; COMMENT: normal results BREAST BIOPSY Right PROCEDURE: BX BREAST; PERC NEEDLE CORE W/IMAG GUID; COMMENT: neg HAND SURGERY Left PROCEDURE: HISTORICAL HAND SURGERY; COMMENT: boxers fracture - ORIF Medical History Medical History Date Comments Chest pain, unspecified 11/27/01 DX:Chest pain, unspecified Scoliosis (and kyphoscoliosi s), idiopathic DX:Scoliosis (and kyphoscoli osis), idiopathic; COMMENT: mild Irritable bowel syndrome 08/13/99 DX:Irri table bowel syndrome Depressive disorder, not els ewhere classified DX:Depressive disorder, not elsewhere classified Esophageal reflux 01/11/00 DX:Esophageal reflux IBS (irritable bowel syndrome) 10/24/2008 D X:IBS (irritable bowel syndrome) Fractured hand 2009 DX:Fractured dickson d; COMMENT: metacarpal - fall- surgery Bronchitis DX:Bronchitis Seropositive rheumatoid arth ritis of multiple sites (CMS/HCC) 08/18/2012 DX:Seropositive rheumatoid a rthritis of multiple sites (HCC); COMMENT: Onset fall 2011. Rheumatoid factor, CCP Ab both markedly positive. Hand films show some x-ray changes July 2012.Methotrexate started 08/21. Enbrel added 08/22. Enbrel changed to Humira 10/23 Family History Medical History Relation Name Comments Breast cancer Aunt paternal 70's Arthritis Brother 1 ankylosing spon dylitis Other cancer Father Lymphoma, diabe phuc Other: Other Mother estranged; no m edical info Colon cancer Other paternal first cousin Blindness Neg Hx Cataracts Neg Hx Colon cancer Neg Hx Glaucoma Neg Hx Macular degeneration Neg Hx Ovarian cancer Neg Hx Pancreatic cancer Neg Hx Prostate cancer Neg Hx Strabismus Neg Hx Uterine cancer Neg Hx Relation Name Status Comments Aunt paternal 70's Brother 1 Brother 2 Alive Father Alive Lymphoma Mother Alive Other Paternal Grandmother 80's Social History Tobacco Use Types Packs/Day Years Used Date Smoking Tobacco: Former Cigarettes 1.5 30 0 07/28/1979 - 07/27/2009 Smokeless Tobacco: Never Quit: 04/02/2010 Alcohol Use Standard Drinks/Week Comments Yes 0 (1 standard drink = 0.6 oz pur e alcohol) Comments Unknown Sex and Gender Information Value Date Recorded Sex Assigned at Not on file Legal Sex Female 4:11 PM EST Gender Identity Not on file Sexual Orientation Not on file Obstetrics History Last Filed Vital Signs Vital Sign Reading Time Taken Comments Blood Pressure 140/100 10/01/2022 10:36 AM EDT Si tting L Arm Pulse 79 10/01/2022 10:36 AM EDT Temperature - - Respiratory Rate - - Oxygen Saturation - - Inhaled Oxygen Concentration - - Weight 83.5 kg (184 lb) 10/01/2022 10:36 AM EDT Height 160 cm (5' 3 ) 10/01/2022 10:36 AM EDT Body Mass Index 32.59 10/01/2022 10:36 AM EDT Plan of Treatment Upcoming Encounters Date Type Department Care Team (Late st Contact Info) Description 06/13/2024 10:00 AM EST Office Visit Orthopedic Surgery - [place] [id number] 175 [facility] [address] [place] [phone] Shantanu Connell, ESSIE [address] [address] Health Maintenance Due Date Last Done Comments Zoster Vaccines (1 of 2) 09/26/2015 Pneumococcal Vaccine: 50+ Years (2 of 2 - PCV) 01/04/2016 01/03/2015 Pneumococcal Vaccine: Pediatrics (0 to 5 Years) and At-Risk Patients (6 to 64 Years) (2 of 2 - PCV) 01/04/2016 01/03/2015 Cervical Cancer Screening: Pap Smear 11/01/2020 11/01/2017, 11/01/2017, 11/01/2017 Colorectal Cancer Screening: Stool Based Tests (FOBT/FIT) 03/20/2022 Depression Screening 03/20/2022 Lung Cancer Screening (Low Dose CT) 03/20/2022 Social Influencers of Health Screening 03/20/2022 COVID-19 Vaccine ( season) 2023 01/22/2021, 06/11/2020, 05/21/2020 Influenza Vaccine (#1) 2023 2, 12/31/2020, 01/01/2020, Additional history exists Breast Cancer Screening 07/14/2024 07/15/19 23, 12/10/2020, 12/06/2019, Additional history exists Cholesterol Screening (Lipid Panel) 04/16/2027 04/16/2022 Osteoporosis Screening (Bone Density Screening) 07/21/2027 07/20/2017 DTaP,Tdap,and Td Vaccines (4 - Td or Tdap) 08/20/2030 08/20/2020, 10/24/2008, 04/24/2004 Hepatitis B Vaccines Completed 02/18/2005, 05/29/2004, 04/24/2004 HIV Screening Completed 11/01/2017 Hepatitis C Screening Completed 11/01/2017 HIB Vaccines Aged Out No longer eligi ble based on patient's age to complete this topic HPV Vaccines Aged Out No longer eligi ble based on patient's age to complete this topic Hepatitis A Vaccines Aged Out No long er eligible based on patient's age to complete this topic IPV Vaccines Aged Out No longer eligi ble based on patient's age to complete this topic MMR Vaccines Aged Out No longer eligi ble based on patient's age to complete this topic Meningococcal ACWY Vaccine Aged Out N o longer eligible based on patient's age to complete this topic Meningococcal B Vacine Aged Out No lo nger eligible based on patient's age to complete this topic RSV Immunization Patients Under 20 months Aged Out No longer eligible based on patient's age to complete this topic Varicella Vaccines Aged Out No longer eligible based on patient's age to complete this topic Procedures Procedure Name Priority Date/Time Associated Diagnosis Comments SCREENING MAMMOGRAPHY BI 2-VIEW BREAST INC CAD Routine 07/14/2022 3:38 PM EDT Encounter for other screening for malignant neoplasm of breast LIPID PANEL Routine 04/16/2022 HEPATITIS C SCREENING Routine 11/01/2017 HIV SCREENING Routine 11/01/2017 PAP SMEAR Routine 11/01/2017 DXA BONE DENSITY STUDY 1+ SITS AXIAL SKEL Routine 07/20/2017 4:01 PM EDT Encounter for screening for osteoporosis from Last 3 Months or Most Recently Relevant to Health Maintenance Results * SCREENING MAMMOGRAPHY BI 2-VIEW BREAST INC CAD (07/14/2022 3:38 PM EDT) Anatomical Region Laterality Modality Radiographic Cher ging 12/10/2020 4:26 PM EDT Narrative 07/15/2022 7:50 AM EDT This is a summary report. The complete report is available in the patient's medical record. If you cannot access the medical record, please contact the sending organization for a detailed fax or copy. Full field digital screening 2D and 3D mammography, reviewed with CAD and compared to previous mammograms dating back to 08/17/2017 with most recent of 12/10/2020. ??The breasts are composed of fatty and fibroglandular tissue. ??No suspicious mass, architectural distortion or suspicious calcifications are identified. IMPRESSION: : No mammographic evidence of malignancy. BIRADS 1-Negative; N. 5 year breast cancer risk assessment 1.4 % Lifetime breast cancer risk assessment 8.9 % Breast cancer risk category Low (<15%) Procedure Note Patricia Hinton MD - 05/16/2023 This is a summary report. The complete report is available in thepatient's medical record. If you cannot access the medical record, pleasecontact the sending organization for a detailed fax or copy. Full field digital screening 2D and 3D mammography, reviewed with CAD andcompared to previous mammograms dating back to 08/17/2017 with most recentof 12/10/2020. The breasts are composed of fatty and fibroglandular tissue.No suspicious mass, architectural distortion or suspicious calcificationsare identified. IMPRESSION: : No mammographic evidence of malignancy. BIRADS 1-Negative; N. 5 year breast cancer risk assessment 1.4 % Lifetime breast cancer risk assessment 8.9 % Breast cancer risk category Low (<15%) us Lara Vallejo MD IMG XR PROCEDURES Final Res ult * Lipid panel (04/16/2022) Triglycerides 0 mg/dL Comment:no interpretation, a bstracted Cholesterol 0 mg/dL Comment:no interpretation, a bstracted HDL 0 mg/dL Comment:no interpretation, a bstracted LDL Cholesterol 0 mg/dL Comment:no interpretation, a bstracted Blood Venous blood specimen / Unknown Historical Provider LAB BLOOD ORDERABLES Natali l Result * HIV Screening (11/01/2017) HIV Screening abstracted Historical Provider MD HEALTH MAINTENANCE Final Result * Hepatitis C Screening (11/01/2017) Hepatitis C Screening abstracted Result [facility] Provider HEALTH MAINTENANCE Final Result * Pap smear (11/01/2017) 11/01/2017 Narrative HISTORICAL TESTING LAB RESULTING AGENCY - 11/04/2017 4:54 PM EDT [id number] THINPREP PAP, IMAGED: NEGATIVE FOR SQUAMOUS INTRAEPITHELIAL LESION AND MALIGNANCY ??. RESULT OF APTIMA HIGH RISK HPV ASSAY: ? NEGATIVE ?? (SEROTYPES 16,18,31,33,35,39,45,51,52,56,58,59,66,68) PRADIP GUZMAN(ASCP) (CASE ELECTRONICALLY SIGNED 11 04 2017) ADEQUACY: SATISFACTORY. ENDOCERVICAL/TRANSFORMATION ZONE COMPONENT PRESENT. SOURCE: THINPREP PAP HPV ANY DX: ??REFLEX 16 AND 18, CERVICAL, IMAGED: CLINICAL INFORMATION: HPV ANY DIAGNOSIS. Z12.4, PAP HX: NEGATIVE Lara Vallejo MD LAB CYTOLOGY ORDERABLES Fin al Result HISTORICAL TESTING LAB RESULTING AGENCY * DXA BONE DENSITY STUDY 1+ SITS AXIAL SKEL (07/20/2017 4:01 PM EDT) Anatomical Region Laterality Modality Bone Densitometr y 06/23/2017 12:5 6 PM EDT Narrative 07/21/2017 3:28 PM EDT BONE DENSITY ? Lumbar Spine T-score is -4.0 ?? (SD relative to 20-29 y/o adult) Z-score is -3.1 ??(SD relative to age matched peers) This is consistent with osteoporosis by criteria defined by the WHO. Left Hip T-score is -3.3 Z-score is -2.4 This is consistent with osteoporosis by criteria defined by the WHO. Impression: Based on the World Health Organization criteria, Ghislaine Muñoz should be classified as having osteoporosis. The [facility] Department of Internal Medicine recommends using National Osteoporosis Foundation (NOF) guidelines in treatment decisions related to osteoporosis. NOF guidelines suggest considering treatment for postmenopausal women and men aged 50 or older presenting with the following: History of hip or vertebral fracture. T-score less than or equal to -2.5 (DXA) at the femoral neck, total hip, or spine, after appropriate evaluation to exclude secondary causes. Low bone mass (T-score between -1.0 and -2.5 at the femoral neck or spine) AND a 10-year probability of a hip fracture greater than or equal to 3% OR a 10-year probability of a major osteoporosis-related fracture greater than or equal to 20% based on the [place]-adapted WHO algorithm Please note that all treatment decisions require clinical judgment and consideration of individual patient factors, including patient preferences, co-morbidities, previous drug use, risk factors not captured in the FRAX model (e.g., frailty, falls, vitamin D deficiency, increased bone turnover, interval significant decline in bone density) and possible under- or over-estimation of fracture risk by FRAX. Procedure Note Valeria Felipe MD - 03/30/2022 BONE DENSITY Lumbar Spine T-score is -4.0 (SD relative to 20-29 y/o adult) Z-score is -3.1 (SD relative to age matched peers) This is consistent with osteoporosis by criteria defined by the WHO. Left Hip T-score is -3.3 Z-score is -2.4 This is consistent with osteoporosis by criteria defined by the WHO. Impression: Based on the World Health Organization criteria, Ghislaine Muñoz should beclassified as having osteoporosis. The [facility] Department of Internal Medicine recommendsusing National Osteoporosis Foundation (NOF) guidelines in treatmentdecisions related to osteoporosis. NOF guidelines suggest consideringtreatment for postmenopausal women and men aged 50 or older presentingwith the following: History of hip or vertebral fracture. T-score less than or equal to -2.5 (DXA) at the femoral neck, total hip,or spine, after appropriate evaluation to exclude secondary causes. Low bone mass (T-score between -1.0 and -2.5 at the femoral neck or spine)AND a 10-year probability of a hip fracture greater than or equal to 3% ORa 10-year probability of a major osteoporosis-related fracture greaterthan or equal to 20% based on the [place]-adapted WHO algorithm Please note that all treatment decisions require clinical judgment andconsideration of individual patient factors, including patientpreferences, co-morbidities, previous drug use, risk factors not capturedin the FRAX model (e.g., frailty, falls, vitamin D deficiency, increasedbone turnover, interval significant decline in bone density) and possibleunder- or over-estimation of fracture risk by FRAX. Johny BAIRES [facility] DXA PROCEDURES Final Result from Last 3 Months or Most Recently Relevant to Health Maintenance Insurance [facility] Care Teams Chief Chemist Relationship Specialty Start Date End Date Aure Caraballo MD PCP - General Internal Medicine 03/06/24
== END 2024-06-07 10:27 | disposition home or self-care (01) ==
PROVIDERS: PCP Internal Medicine; Visit Provider Nurse Practitioner Family
DX: J06.9 Acute upper respiratory infection, unspecified (principal)

== ENCOUNTER 2024-06-22 11:12 | Outpatient (AMB) | payer OTHER, SELFPAY ==
--- NOTE | 2024-06-22 11:18 | MHC.PC.OV ---
Vital Signs 06/22/24 11:19 Height 5 ft 3 in Weight 178 lb BMI 31.5 BP 120/78 Blood Pressure Location Lt brachial Position Sitting Respiration 20 Pulse 99 Pulse Source Pulse Oximeter Temp 98.5 F Temp Source Oral Pulse Oximetry (%) 96 Oxygen Delivery Method Room Air Intake Visit Reasons: Banging sound on Ear Intake Note: Pt is here today for a sick visit. Pt c/o bilateral eye redness and swelling. Pt also c/o noise in her L ear. Allergies amoxicillin Allergy (Intermediate, Verified 06/22/24 11:24) Vomiting/diarrhea alendronate sodium [From Fosamax] Adverse Reaction (Intermediate, Verified 06/22/24 11:24) Heartburn Medication List - Last Reconciled 06/22/24 by Aure Caraballo MD albuterol sulfate 90 mcg/actuation 2 puffs inhalation Q6H PRN albuterol sulfate 2.5 mg inhalation Q4-6H PRN budesonide 32 mcg/actuation 1 spray intranasal BID clobetasol 0.05% 1 appl topical BEDTIME Humira(CF) Pen (adalimumab) 40 mg (0.4 mL) subcut Q2W NS levofloxacin 500 mg PO DAILY multivitamin 1 tab PO DAILY prednisone 10 mg PO DAILY pseudoephedrine HCl ER (Sudafed 12 Hour) 120 mg PO Q12H valacyclovir (Valtrex) 1,000 mg PO Q8H Tobacco use date assessed: 06/22/24 Dental Screening Dental Screen Date: 06/22/24 Did you have a dental visit in the last 12 months?: Yes Did you have a dental problem in the last 6 months where you did not have access to dental care?: No Was dental information given to patient?: Patient has dentist HPI Banging sound on Ear HPI Details Patient complains of having left-sided facial pain started with the nasal congestion and left-sided forehead pain a week ago. Patient reports left ear pressure pain and and noise on and off for the last 2 days. She denies any change in the hearing, fever, chills, cough, pain when eating or chewing, rash on the face. Patient complains of eyes feeling itchy with clear discharge but no change in the vision [facility] Medical History Acute respiratory disease Personal history of nicotine dependence Weight gain Trochanteric bursitis of right hip long-term current use of immunosuppressive drug Osteoporosis Seropositive rheumatoid arthritis (~2011) Surgical History Hx of shoulder surgery Family History Father HTN (hypertension) Diabetes Afib Lymphoma Paternal Grandmother Breast cancer Paternal Aunt Breast cancer Brother Ankylosing spondylitis Social History Household Members Other:: lives alone with disable person, Housing: Apartment Are you a primary post anesthesia care unit nurse to a significant other at home: No Do you presently have visiting nurse or other home services: No 75 years or older and lives alone: No Alcohol intake: current Alcohol intake frequency: 0-2 drinks per day Alcohol type: wine Patient Tobacco Use Status: Former Tobacco user Years Smoked: (onset 14yo, 1ppd x 30yrs, 30pyh - quit 04/04/2010) e-Cigarette/Vaping Use: Never Used service: No Current occupational status: employed 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 Cognitive needs: No Hearing needs: No Vision needs: Yes Questionnaire Thrive Questionnaire Date Thrive assessed: 06/16/24 I am a: Patient What is your living situation today?: I have a steady place to live Within the past 12 months, did the food you bought not last and you didn't have the money to get more?: Never true Within the past 12 months, did you worry whether your food would run out before you got money to buy more?: Never true Do you have trouble paying for medicines?: No Do you have trouble getting transportation to medical appointments?: No Do you have trouble paying your heating and electricity bill?: No Do you have trouble taking care of your child, family member or friend?: No Do you have trouble with day-to-day activities such as bathing, preparing meals, shopping, managing finances, etc.?: No Are you currently unemployed and looking for a job?: No Are you interested in more education?: No Please select the resources that you would like help with: None Currently or been in a relationship where the following occur: No concerns reported THRIVE Score: 0 AUDIT C Alcohol Use Questionnaire (AUDIT-C) 1. How often do you have a drink containing alcohol?: 4 or more times a week 2. How many drinks containing alcohol do you have on a typical day when you are drinking?: 3 or 4 3. How often do you have six or more drinks on one occasion?: Never Total Score: 5 FREDA-7 AMB Questionnaire FREDA-7 Date FREDA - 7 assessed: 12/22/23 Feeling nervous, anxious, or on edge: 0 = Not at all Not being able to stop or control worryin = Not at all Worrying too much about different things: 0 = Not at all Trouble relaxin = Not at all Being so restless that it is hard to sit still: 0 = Not at all Becoming easily annoyed or irritable: 0 = Not at all Feeling afraid as if something awful might happen: 0 = Not at all Total FREDA-7 score (0-4 normal; 5-9 mild; 10-14 moderate; 15-21 severe): 0 Source: Developed by Drs. Marv Westbrook, Lillian Boudreaux, Santos Andrews and colleagues, with an educational tawny from [employer]. Review of Systems Const All systems reviewed & are unremarkable except as noted in HPI and below Eyes Reports no additional complaints ENT Reports no additional complaints Card Reports no additional complaints Resp Reports no additional complaints GI Reports no additional complaints Reports no additional complaints Physical exam (Primary Care) Vital Signs: Last Vital Signs Temp 98.5 F 06/22/24 11:19 Pulse 99 06/22/24 11:19 Resp 20 06/22/24 11:19 BP 120/78 06/22/24 11:19 Pulse Ox 96 06/22/24 11:19 Oxygen Delivery Method Room Air 06/22/24 11:19 BMI result Body Mass Index 31.5 Tobacco/Smoking Status: Tobacco use Status Tobacco use date assessed 06/22/24 06/22/24 11:32 Patient Tobacco Use Status Former Tobacco user 06/22/24 11:19 e-Cigarette/Vaping Use Never Used 06/22/24 11:19 Thrive Assessment: Date of Thrive Assessment Date Thrive assessed 06/16/24 06/22/24 11:19 Currently or been in a relationship where the following occur: No concerns reported Const General: no acute distress HENMT Ears: TM normal on the right, TM abnormal erythematous and with fluid behind the TM and Kurtz (Normal) General nose exam: No nasal discharge present Face and sinus: Yes normal facial exam Throat: Yes posterior oropharynx normal Eyes General: appearance normal, both eyes and all related structures Neck Neck: Yes no lymphadenopathy and Yes supple Resp Effort & Inspection: normal respiratory effort Auscultation: clear to auscultation bilaterally Cardio Rhythm: regular rhythm Heart sounds: S1 normal heart sound present and S2 normal heart sound present Coding Level of Care Code Est Pt Level 3 (75484) Diagnoses Otitis H66.90 Assessment & Plan Assessment & Plan (1) Otitis: Code(s): H66.90 - Otitis media, unspecified, unspecified ear Category: Medical Plan: For otitis media and left-sided facial pain Levaquin prednisone and Valtrex to cover for herpes zoster are prescribed. CRP CBC will be checked. patient will follow-up in 1 week Orders: Orders C Reactive Protein Today H66.90 - Otitis media, unspecified, unspecified ear SANDHYA Reflex Titer and Pattern Today H66.90 - Otitis media, unspecified, unspecified ear Complete Blood Count Auto Diff Today H66.90 - Otitis media, unspecified, unspecified ear Lupus Anticoagulant Panel Today M05.9 - Rheumatoid arthritis with rheumatoid factor, unspecified, M06.9 - Rheumatoid arthritis, unspecified, M77.50 - Other enthesopathy of unspecified foot and ankle Medications: New prednisone 4 tabl qd x 3 days, then 3 tabl qd x 3 days, then 2 tabl qd x 3 days, then 1 tabl x 3days 10 mg PO DAILY 30 tabs 0RF valacyclovir (Valtrex) 1,000 mg PO Q8H 30 tabs 0RF levofloxacin 500 mg PO DAILY 10 tabs 0RF
[2024-06-22 11:19] VITALS: BP 120/78; PULSE 99; RESP 20; TEMP 36.9; O2SAT 96; BMI 31.5
--- OUTSIDE RECORDS SUMMARY | 2024-06-22 12:58 | XMS_ITS ---
Author Organization [facility] Address [address] [place] [phone] Care Team Providers Care Clay Dry Press Operator Name Role Phone Rashmi LEIVA, Aure Primary Care Provider Ruth Garcia [phone] Encounters Encounter Location Date Provider [facility] [address] [place] [address] 04/16/2024 Ruth Le Plan Of Treatment No Information Progress Notes * Glenn MCCRARYaDOB:1965 ([age] yo F)Acc No.[id number]:04/16/2024 Progress Notes Patient:?Ghislaine MCCRARY Provider:?Ruth Le DPM :1965???Age:58 Y???Sex:Female D ate:04/16/2024 Address:[address] [place] [id number] Pcp:Aure Caraballo MD Subjective: * Chief Complaints: [...] Le DPM Date:?0 04/16/2024 Generated for Lito urrutia/Tricia/eTransmitting on:?06/22/2024 12:58 PM EDT
--- OUTSIDE RECORDS SUMMARY | 2024-06-22 12:58 | XMS_ITS | Clinical Summary ---
Author Organization [facility] Address [address] [place] [address] Phone Care Team Providers Care Indian Blanket Weaver Name Role Phone Aure Caraballo MD Primary Care Provider [phone] Allergies Active Allergy Reactions Criticality Noted Date [...] We will try to get records from [facility]. History of COVID-19 12/01/2020 Overview (04/24/2024): February [...] WHI. I discussed risks including cardiovascular disease- [place], DVT, stroke. I discussed small increased risk [...] Name Administration Dates Next Due Hepatitis B (Imsftjk-S-Hfrbv , Recombivax HB-Adult) 19yo and older 02/18/2005,05/29/2004,04/24/2004 [...] 10/01/2022 10:36 AM EDT Plan of Treatment Health Maintenance Due Date Last Done Comments [...] % Breast cancer risk category Low (<15%) Lara Vallejo MD IMG XR PROCEDURES Final Res ult * Lipid panel (04/16/2022) Triglycerides 0 mg/dL Comment:no interpretation, a bstracted Cholesterol 0 mg/dL Comment:no interpretation, a bstracted HDL 0 mg/dL Comment:no interpretation, a bstracted LDL Cholesterol 0 mg/dL Comment:no interpretation, a bstracted Blood Venous blood specimen / Unknown Historical Provider LAB BLOOD ORDERABLES Natali l Result * HIV Screening (11/01/2017) HIV Screening abstracted us Historical Provider HEALTH MAINTENANCE Final Result * Hepatitis C Screening (11/01/2017) Hepatitis C Screening abstracted us Historical Provider HEALTH MAINTENANCE Final Result * Pap smear (11/01/2017) 11/01/2017 Narrative HISTORICAL TESTING LAB RESULTING AGENCY - 11/04/2017 4:54 PM EDT [id number] THINPREP PAP, IMAGED: NEGATIVE FOR SQUAMOUS INTRAEPITHELIAL LESION AND MALIGNANCY ??. RESULT OF APTIMA HIGH RISK HPV ASSAY: ? NEGATIVE ?? (SEROTYPES 16,18,31,33,35,39,45,51,52,56,58,59,66,68) ELSI OLIVERA, PRADIP(ASCP) (CASE ELECTRONICALLY SIGNED 11 04 2017) ADEQUACY: [...] should be classified as having osteoporosis. The [facility] Department of Internal Medicine recommends [...] Muñoz should beclassified as having osteoporosis. The [facility] Department of Internal Medicine recommendsusing [...] of fracture risk by FRAX. Johny BAIRES IMG DXA PROCEDURES Final Result from Last 3 Months or Most Recently Relevant to Health Maintenance Insurance [facility] [employer] Care Teams Indian Blanket Weaver Relationship Specialty Start Date End Date Aure Caraballo MD PCP - General Internal Medicine 03/06/24
--- OUTSIDE RECORDS SUMMARY | 2024-06-22 12:58 | XMS_ITS | Patient Health Record ---
Author Organization [facility] Address [address] [place] [address] Care Team Providers Care Automobile Damage Field Appraiser Name Role Phone Aure Caraballo MD Primary Care Provider Ruth Garcia Unavailable [phone] Reason For Referral No Information Encounters Encounter Location Date Provider Diagnosis [facility] [address] [place] [address] 02/21/2024 Ruth Le Plan Of Treatment No Information
--- OUTSIDE RECORDS SUMMARY | 2024-06-22 12:59 | XMS_ITS ---
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 Generated for Lito urrutia/Tricia/eTransmitting on:?06/22/2024 12:58 PM EDT
== END 2024-06-22 12:16 | disposition home or self-care (01) ==
LOC: HO.HMCC 11:13
PROVIDERS: PCP Internal Medicine; Visit Provider Internal Medicine
DX: H66.90 Otitis media, unspecified, unspecified ear (principal)

== ENCOUNTER 2024-06-22 11:12 | Outpatient (REF) | payer OTHER, SELFPAY ==
--- OUTSIDE RECORDS SUMMARY | 2024-06-22 15:43 | XMS_ITS | Clinical Summary ---
Author Organization [facility] Address [address] [place] [address] Phone Care Team Providers Care Licensed Guide Name Role Phone Aure Caraballo MD Primary Care Provider [phone] Allergies Active Allergy Reactions Criticality Noted Date [...] We will try to get records from [facility]. History of COVID-19 12/01/2020 Overview (04/24/2024): February [...] WHI. I discussed risks including cardiovascular disease- [place], DVT, stroke. I discussed small increased risk [...] Name Administration Dates Next Due Hepatitis B (Jtzihxv-V-Kkhiu , Recombivax HB-Adult) 19yo and older 02/18/2005,05/29/2004,04/24/2004 [...] RESULTING AGENCY - 11/04/2017 4:54 PM EDT [id number] THINPREP PAP, IMAGED: NEGATIVE FOR SQUAMOUS INTRAEPITHELIAL [...] should be classified as having osteoporosis. The [facility] Department of Internal Medicine recommends [...] Muñoz should beclassified as having osteoporosis. The [facility] Department of Internal Medicine recommendsusing [...] Most Recently Relevant to Health Maintenance Insurance [facility] Care Teams Licensed Guide Relationship Specialty Start Date End Date Aure Caraballo MD PCP - General Internal Medicine 03/06/24
[2024-06-22 16:31] LABS: MANUAL DIFF FLAG NO
[2024-06-22 16:36] LABS: Basophils Absolute Auto 0.1 X10*3/uL (0.0-0.2); Basophils Percent Auto 0.6 % (0-2); Eosinophils Absolute Auto 0.3 X10*3/uL (0.0-0.4); Eosinophils Percent Auto 3.8 % (0-4); Hematocrit 40.8 % (37.0-47.0); Hemoglobin 13.7 g/dl (12.0-16.0); Imm Gran Abs Auto 0.02 X10*3/uL (0.00-0.03); Imm Gran Pct Auto 0.3 % (0.0-0.4); Lymphocytes Absolute Auto 3.9 X10*3/uL (1.2-4.9); Lymphocytes Percent Auto 49.7 % (20-40); Mean Corpuscular HGB Conc 33.6 g/dl (31.0-35.0); Mean Corpuscular Hemoglobin 28.7 pg (27.0-33.0); Mean Corpuscular Volume 85.4 fL (80.0-98.0); Mean Platelet Volume 11.3 fL (9.4-12.3); Monocytes Absolute Auto 0.7 X10*3/uL (0.1-1.2); Monocytes Percent Auto 8.2 % (2-11); Neutrophils Percent Auto 37.4 % (45-73); Platelet Count 267 X10*3/uL (160-400); Red Blood Count 4.78 X10*6/uL (4.20-5.50); Red Cell Distribution Width 12.8 % (11.0-16.0); White Blood Count 7.9 X10*3/uL (4.8-10.8)
[2024-06-22 17:12] LABS: Alanine Aminotransferase 34 U/L (0-31); Albumin Level 4.2 g/dL (3.5-5.0); Alkaline Phosphatase 59 U/L (39-117); Anion Gap 11 (12-20); Aspartate Amino Transferase 32 U/L (5-31); Bilirubin Total 0.3 mg/dL (0.0-1.0); Blood Urea Nitrogen 13 mg/dL (9-16); C Reactive Protein 0.15 mg/dL (< or = 0.50); Carbon Dioxide 32 mmol/L (22-29); Chloride 103 mmol/L (96-108); Estimated Glomerular Filt Rate > 60; Glucose Random 98 mg/dL (60-115); Sodium 142 mmol/L (135-145); Total Protein 8.4 g/dL (6.5-8.0)
[2024-06-22 17:16] LABS: Erythrocyte Sedimentation Rate 10 MM/HR (0-20)
== END 2024-06-22 11:13 | disposition home or self-care (01) ==
LOC: HO.HMGCLDS 11:12
PROVIDERS: PCP Internal Medicine; Visit Provider Student in an Organized Health Care Education/Training Program
DX: H66.90 Otitis media, unspecified, unspecified ear (principal); M05.9 Rheumatoid arthritis with rheumatoid factor, unspecified; M06.9 Rheumatoid arthritis, unspecified; M77.50 Other enthesopathy of unspecified foot and ankle; Z11.7 Encounter for testing for latent tuberculosis infection
CPT/HCPCS: 36415; 80053; 85025; 85652; 86140; 99212

== ENCOUNTER 2024-07-02 13:35 | Outpatient (AMB) | payer OTHER, SELFPAY ==
--- NOTE | 2024-07-02 13:52 | A.OFFPC_ITS ---
Vital Signs 07/02/24 13:55 Height 5 ft 3 in Weight 178 lb BMI 31.5 BP 138/88 Blood Pressure Location Rt brachial Position Sitting Respiration 20 Pulse 102 H Pulse Source Pulse Oximeter Temp 98.4 F Temp Source Oral Pulse Oximetry (%) 97 Oxygen Delivery Method Room Air Intake Visit Reasons: 10 day follow up Intake Note: Pt is here today for 10 days follow up visit. Allergies amoxicillin Allergy (Intermediate, Verified 07/02/24 13:57) Vomiting/diarrhea alendronate sodium [From Fosamax] Adverse Reaction (Intermediate, Verified 07/02/24 13:57) Heartburn Medication List - Last Reconciled 07/02/24 by Aure Caraballo MD albuterol sulfate 90 mcg/actuation 2 puffs inhalation Q6H PRN albuterol sulfate 2.5 mg inhalation Q4-6H PRN budesonide 32 mcg/actuation 1 spray intranasal BID clobetasol 0.05% 1 appl topical BEDTIME Humira(CF) Pen (adalimumab) 40 mg (0.4 mL) subcut Q2W NS ketoconazole 2% 1 appl topical DAILY levofloxacin 500 mg PO DAILY multivitamin 1 tab PO DAILY prednisone 10 mg PO DAILY pseudoephedrine HCl ER (Sudafed 12 Hour) 120 mg PO Q12H valacyclovir (Valtrex) 1,000 mg PO Q8H Tobacco use date assessed: 06/22/24 Dental Screening Dental Screen Date: 06/22/24 HPI 10 day follow up HPI Details Patient presents for the follow-up of otitis media significantly improved after the treatment. Patient still reports intermittent tinnitus and fullness in the right ear but denies change in hearing. [facility] Medical History Acute respiratory disease Personal history of nicotine dependence Weight gain Trochanteric bursitis of right hip senior care current use of immunosuppressive drug Osteoporosis Seropositive rheumatoid arthritis (~2011) Surgical History Hx of shoulder surgery Family History Father HTN (hypertension) Diabetes Afib Lymphoma Paternal Grandmother Breast cancer Paternal Aunt Breast cancer Brother Ankylosing spondylitis Social History Household Members Other:: lives alone with disable person, Housing: Apartment Are you a primary animal care supervisor to a significant other at home: No Do you presently have visiting nurse or other home services: No 75 years or older and lives alone: No Alcohol intake: current Alcohol intake frequency: 0-2 drinks per day Alcohol type: wine Patient Tobacco Use Status: Former Tobacco user Years Smoked: (onset 14yo, 1ppd x 30yrs, 30pyh - quit 04/04/2010) e-Cigarette/Vaping Use: Never Used service: No Current occupational status: employed 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 1. Little interest or pleasure in doing things: not at all 2. Feeling down, depressed, or hopeless: not at all 3. Trouble falling or staying asleep, or sleeping too much: not at all 4. Feeling tired or having little energy: not at all 5. Poor appetite or overeating: not at all 6. Feeling bad about yourself - or that you are a failure or have let yourself or your family down: not at all 7. Trouble concentrating on things, such as reading the newspaper or watching television: not at all 8. Moving or speaking so slowly that other people could have noticed. Or the opposite - being so fidgety or restless that you have been moving around a lot more than usual: not at all 9. Thoughts that you would be better off or of hurting yourself in some way: not at all Total score: 0 Depression Screening Interpretation: Negative Depression Screening Done: Yes 96352 - PHQ-9 Billing: Yes Source: Developed by Drs. Marv Westbrook, Lillian Boudreaux, Santos Andrews and colleagues, with an educational tawny from [employer]. Thrive Questionnaire Date Thrive assessed: 07/02/24 I am a: Patient What is your living situation today?: I have a steady place to live Within the past 12 months, did the food you bought not last and you didn't have the money to get more?: Never true Within the past 12 months, did you worry whether your food would run out before you got money to buy more?: Never true Do you have trouble paying for medicines?: No Do you have trouble getting transportation to medical appointments?: No Do you have trouble paying your heating and electricity bill?: No Do you have trouble taking care of your child, family member or friend?: No Do you have trouble with day-to-day activities such as bathing, preparing meals, shopping, managing finances, etc.?: No Are you currently unemployed and looking for a job?: No Are you interested in more education?: No Please select the resources that you would like help with: None Currently or been in a relationship where the following occur: No concerns reported THRIVE Score: 0 FREDA-7 AMB Questionnaire FERDA-7 Date FREDA - 7 assessed: 07/02/24 Feeling nervous, anxious, or on edge: 0 = Not at all Not being able to stop or control worryin = Not at all Worrying too much about different things: 0 = Not at all Trouble relaxin = Not at all Being so restless that it is hard to sit still: 0 = Not at all Becoming easily annoyed or irritable: 0 = Not at all Feeling afraid as if something awful might happen: 0 = Not at all Total FREDA-7 score (0-4 normal; 5-9 mild; 10-14 moderate; 15-21 severe): 0 Source: Developed by Drs. Marv Westbrook, Lillian Boudreaux, Santos Andrews and colleagues, with an educational tawny from [employer]. FREDA-7 Assessment Billing FREDA-7 Assessment Tool: FREDA-7 Assessment 70564 Review of Systems Const All systems reviewed & are unremarkable except as noted in HPI and below Eyes Reports no additional complaints ENT Reports no additional complaints Card Reports no additional complaints Resp Reports no additional complaints GI Reports no additional complaints Physical exam (Primary Care) Vital Signs: Last Vital Signs Temp 98.4 F 07/02/24 13:55 Pulse 102 H 07/02/24 13:55 Resp 20 07/02/24 13:55 Pulse Ox 97 07/02/24 13:55 Oxygen Delivery Method Room Air 07/02/24 13:55 BMI result Body Mass Index 31.5 Tobacco/Smoking Status: Tobacco use Status Tobacco use date assessed 06/22/24 07/02/24 13:53 Patient Tobacco Use Status Former Tobacco user 07/02/24 13:53 e-Cigarette/Vaping Use Never Used 07/02/24 13:53 PHQ-9: PHQ-9 Score PHQ-9: Total score 0 07/02/24 14:00 Depression Screening Interpretation: Negative Thrive Assessment: Date of Thrive Assessment Date Thrive assessed 07/02/24 07/02/24 14:00 Currently or been in a relationship where the following occur: No concerns reported Const General: no acute distress HENMT Head: Yes normal to inspection Ears: TM's normal bilaterally Face and sinus: Yes normal facial exam Mouth: Normal oral and palatal mucosa present Neck Neck: Yes supple Resp Effort & Inspection: normal respiratory effort Auscultation: clear to auscultation bilaterally Cardio Rhythm: regular rhythm Heart sounds: S1 normal heart sound present and S2 normal heart sound present Coding Level of Care Code Est Pt Level 3 (01144) Diagnoses Tinnitus H93.19 Hypertension I10 Additional Codes FREDA-7 Assessment Billing - FREDA-7 Assessment Tool: FREDA-7 Assessment 95618 ([id number]) PHQ-9 - 62017 - PHQ-9 Billing: Yes ([id number]) Assessment & Plan Assessment & Plan (1) Tinnitus: Code(s): H93.19 - Tinnitus, unspecified ear Category: Medical Plan: refer to ENT (2) Hypertension: Code(s): I10 - Essential (primary) hypertension Category: Medical Plan: START 80 MG OF VALSARTAN, LOW-SODIUM DIET INCREASE EXERCISE DISCUSSED WITH THE PATIENT FOLLOW-UP IN 1 MONTH Orders: Referrals Ear/Nose/Throat Referral H93.19 - Tinnitus, unspecified ear Medications: New valsartan 80 mg PO DAILY 90 tabs 0RF Discontinued prednisone 4 tabl qd x 3 days, then 3 tabl qd x 3 days, then 2 tabl qd x 3 days, then 1 tabl x 3days Discontinued Reason: Doctor's Order 10 mg PO DAILY 30 tabs 0RF pseudoephedrine HCl ER (Sudafed 12 Hour) Discontinued Reason: Doctor's Order 120 mg PO Q12H 30 tabs 0RF J06.9 - Acute upper respiratory infection, unspecified, J34.89 - Other specified disorders of nose and nasal sinuses valacyclovir (Valtrex) Discontinued Reason: Doctor's Order 1,000 mg PO Q8H 30 tabs 0RF
[2024-07-02 13:55] VITALS: BP 138/88; PULSE 102; RESP 20; TEMP 36.9; O2SAT 97; BMI 31.5
== END 2024-07-02 15:17 | disposition home or self-care (01) ==
LOC: HO.HMCC 13:36
PROVIDERS: PCP Internal Medicine; Visit Provider Internal Medicine
DX: H93.19 Tinnitus, unspecified ear (principal); I10 Essential (primary) hypertension

== ENCOUNTER → 2024-07-02 13:35 | Outpatient (BNVA) | payer OTHER, SELFPAY | PROVIDERS: PCP Internal Medicine; Visit Provider Internal Medicine | DX: I10 Essential (primary) hypertension (principal); H93.19 Tinnitus, unspecified ear | CPT/HCPCS: 96127; 99212 ==

== ENCOUNTER 2024-08-14 08:56 | Outpatient (AMB) | payer OTHER, SELFPAY ==
[2024-08-14 08:59] VITALS: BP 122/84; PULSE 84; RESP 20; TEMP 36.8; O2SAT 98; BMI 32.2
--- NOTE | 2024-08-14 08:59 | A.OFFPC_ITS ---
Vital Signs 08/14/24 08:59 Height 5 ft 3 in Weight 182 lb BMI 32.2 BP 122/84 Blood Pressure Location Lt brachial Position Sitting Respiration 20 Pulse 84 Pulse Source Pulse Oximeter Temp 98.2 F Temp Source Oral Pulse Oximetry (%) 98 Oxygen Delivery Method Room Air Intake Visit Reasons: Pneumonia Intake Note: Pt is here today for a sick visit. Pt c/o cough for a month. Allergies amoxicillin Allergy (Intermediate, Verified 08/14/24 09:10) Vomiting/diarrhea alendronate sodium [From Fosamax] Adverse Reaction (Intermediate, Verified 08/14/24 09:10) Heartburn Medication List - Last Reconciled 08/14/24 by Aure Caraballo MD albuterol sulfate 90 mcg/actuation 2 puffs inhalation Q6H PRN albuterol sulfate 2.5 mg inhalation Q4-6H PRN budesonide 32 mcg/actuation 1 spray intranasal BID clobetasol 0.05% 1 appl topical BEDTIME Humira(CF) Pen (adalimumab) 40 mg (0.4 mL) subcut Q2W NS ketoconazole 2% 1 appl topical DAILY multivitamin 1 tab PO DAILY valsartan 80 mg PO DAILY Tobacco use date assessed: 06/22/24 Dental Screening Dental Screen Date: 06/22/24 HPI Pneumonia HPI Details Pt presents c/o persistent cough worse lying down and postnasal drip for 5 weeks. . Pt has been taking Caitlyn D for the last few weeks. Pt stopped taking Omeprazole for a few months but restarted 5 days ago because of worsening of GERD symptoms. Patient eats main meal of the day around midnight less than 2 hours before going to bed. She complains of worsening GERD symptoms occasionally having the sensation of difficulty swallowing solids. Patient is established with GI and has a swallow evaluation ordered. Hypertension is controlled on valsartan. 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 Osteoporosis Seropositive rheumatoid arthritis (~2011) Surgical History Hx of shoulder surgery Family History Father HTN (hypertension) Diabetes Afib Lymphoma Paternal Grandmother Breast cancer Paternal Aunt Breast cancer Brother Ankylosing spondylitis Social History Household Members Other:: lives alone with disable person, Housing: Apartment Are you a primary acute care clinical nurse specialist to a significant other at home: No Do you presently have visiting nurse or other home services: No 75 years or older and lives alone: No Alcohol intake: current Alcohol intake frequency: 0-2 drinks per day Alcohol type: wine Patient Tobacco Use Status: Former Tobacco user Years Smoked: (onset 14yo, 1ppd x 30yrs, 30pyh - quit 04/04/2010) e-Cigarette/Vaping Use: Never Used service: No Current occupational status: employed 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 Cognitive needs: No Hearing needs: No Vision needs: Yes Questionnaire Thrive Questionnaire Date Thrive assessed: 06/16/24 I am a: Patient What is your living situation today?: I have a steady place to live Within the past 12 months, did the food you bought not last and you didn't have the money to get more?: Never true Within the past 12 months, did you worry whether your food would run out before you got money to buy more?: Never true Do you have trouble paying for medicines?: No Do you have trouble getting transportation to medical appointments?: No Do you have trouble paying your heating and electricity bill?: No Do you have trouble taking care of your child, family member or friend?: No Do you have trouble with day-to-day activities such as bathing, preparing meals, shopping, managing finances, etc.?: No Are you currently unemployed and looking for a job?: No Are you interested in more education?: No Please select the resources that you would like help with: None Currently or been in a relationship where the following occur: No concerns reported THRIVE Score: 0 FREDA-7 AMB Questionnaire FREDA-7 Date FREDA - 7 assessed: 07/02/24 Source: Developed by Drs. Marv Westbrook, Lillian Boudreaux, Santos Andrews and colleagues, with an educational tawny from [employer]. Review of Systems Const All systems reviewed & are unremarkable except as noted in HPI and below Eyes Reports no additional complaints ENT Reports no additional complaints Card Reports no additional complaints Resp Reports no additional complaints GI Reports no additional complaints Reports no additional complaints Physical exam (Primary Care) Vital Signs: Last Vital Signs Temp 98.2 F 08/14/24 08:59 Pulse 84 08/14/24 08:59 Resp 20 08/14/24 08:59 BP 122/84 08/14/24 08:59 Pulse Ox 98 08/14/24 08:59 Oxygen Delivery Method Room Air 08/14/24 08:59 BMI result Body Mass Index 32.2 Tobacco/Smoking Status: Tobacco use Status Tobacco use date assessed 06/22/24 08/14/24 08:59 Patient Tobacco Use Status Former Tobacco user 08/14/24 08:59 e-Cigarette/Vaping Use Never Used 08/14/24 08:59 Thrive Assessment: Date of Thrive Assessment Date Thrive assessed 06/16/24 08/14/24 08:59 Currently or been in a relationship where the following occur: No concerns reported Const General: no acute distress HENMT Head: Yes normal to inspection Face and sinus: Yes normal facial exam and No sinus tenderness Mouth: Normal oral and palatal mucosa present Throat: Yes postnasal drainage Neck Neck: Yes no lymphadenopathy and Yes supple Resp Effort & Inspection: normal respiratory effort Auscultation: clear to auscultation bilaterally Cardio Rhythm: regular rhythm Heart sounds: S1 normal heart sound present and S2 normal heart sound present GI Inspection: Yes normal to inspection Palpation (GI): Soft to palpation Percussion: Yes normal to percussion Auscultation: normal bowel sounds Coding Level of Care Code Est Pt Level 4 (05905) Diagnoses Enlarged thyroid E04.9 Hypertension I10 COPD (chronic obstructive pulmonary disease) J44.9 Seropositive rheumatoid arthritis M05.9 Chronic cough R05.3 GERD (gastroesophageal reflux disease) K21.9 Assessment & Plan Assessment & Plan (1) Enlarged thyroid: Code(s): E04.9 - Nontoxic goiter, unspecified Category: Medical Plan: Obtain thyroid ultrasound (2) Hypertension: Code(s): I10 - Essential (primary) hypertension Category: Medical Plan: Continue valsartan (3) COPD (chronic obstructive pulmonary disease): Code(s): J44.9 - Chronic obstructive pulmonary disease, unspecified Category: Medical Plan: Obtain PFTs start Breo 100 mcg daily and use albuterol as needed (4) Seropositive rheumatoid arthritis: Onset Date: ~2011 Comment: Onset fall 2011++RF+++CCP Hand films show some x-ray changes July 2012. MTX started 08/21. Enbrel added 08/22. Enbrel changed to Humira 10/23 Code(s): M05.9 - Rheumatoid arthritis with rheumatoid factor, unspecified Category: Medical Plan: Follow-up with rheumatology (5) Chronic cough: Code(s): R05.3 - Chronic cough Category: Medical Plan: For chronic cough patient was advised to continue antihistamine and Flonase nasal spray, she will continue PPI and follow-up with the GI for chronic GERD. She was advised not to eat 3 hours before going to bed and follow anti GERD diet, check chest XR (6) GERD (gastroesophageal reflux disease): Code(s): K21.9 - Gastro-esophageal reflux disease without esophagitis Category: Medical Plan: Continue PPI Orders: Orders US thyroid Today E04.9 - Nontoxic goiter, unspecified, R05.9 - Cough, unspecified Lipid Panel 2 Months E04.9 - Nontoxic goiter, unspecified, I10 - Essential (primary) hypertension, Z00.00 - Encounter for general adult medical examination without abnormal findings Comprehensive [place]. Panel Fast 2 Months E04.9 - Nontoxic goiter, unspecified, I10 - Essential (primary) hypertension, Z00.00 - Encounter for general adult medical examination without abnormal findings TSH reflex Free T4 2 Months E04.9 - Nontoxic goiter, unspecified, I10 - Essential (primary) hypertension, Z00.00 - Encounter for general adult medical examination without abnormal findings Vitamin D 25-OH Total 2 Months E04.9 - Nontoxic goiter, unspecified, I10 - Esse ntial (primary) hypertension, Z00.00 - Encounter for general adult medical examination without abnormal findings XR chest 1V Today R05.9 - Cough, unspecified PFT pulmonary function test Today J44.9 - Chronic obstructive pulmonary disease, unspecified, R05.9 - Cough, unspecified Complete Blood Count Auto Diff 2 Months E04.9 - Nontoxic goiter, unspecified, I10 - Essential (primary) hypertension, Z00.00 - Encounter for general adult medical examination without abnormal findings Medications: New Breo Ellipta 100-25 mcg/dose (fluticasone furoate-vilanterol) 1 inh inhalation DAILY 60 ea 3RF NS albuterol sulfate 90 mcg/actuation 2 puffs inhalation Q6H PRN 6.7 grams 1RF shortness of breath or wheezing
--- OUTSIDE RECORDS SUMMARY | 2024-08-14 09:34 | XMS_ITS | Clinical Summary ---
Author Organization [facility] Address [address] [place] [address] Phone Care Team Providers Care Senior Safety Support Manager Name Role Phone Aure Caraballo MD Primary Care Provider [phone] Allergies Active Allergy Reactions Criticality Noted Date [...] We will try to get records from [facility]. History of COVID-19 12/01/2020 Overview (04/24/2024): [...] WHI. I discussed risks including cardiovascular disease- [place], DVT, stroke. I discussed small increased risk [...] out cholecystitis without obstruction 01/09/2015 COPD, mild ([facility] V24, [facility] V28) 10/14/2014 Seropositive rheumatoid arth ritis of multiple sites ([facility] V24, [facility] V28) 08/18/2012 Overview (04/24/2024): Onset fall 2011. Rheumatoid factor, CCP Ab both markedly positive. Hand films show some x-ray changes July 2012.Methotrexate started 08/21. Enbrel added 08/22. 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 Rheumatoid factor, CCP [...] Based Tests (FOBT/FIT) 03/20/2022 Depression Screening 03/20/2022 Social Influencers of Health Screening 03/20/2022 COVID-19 Vaccine ( season) 2023 01/22/2021, 06/11/2020, 05/21/2020 Breast Cancer Screening 07/14/2024 07/15/19, 12/10/2020, 12/06/2019, Additional history exists Influenza Vaccine (Season Ended) 2024 01/01/2022, 12/31/2020, 01/01/2020, Additional history exists Cholesterol Screening (Lipid Panel) [...] age to complete this topic Meningococcal B Vaccine Aged Out No l onger eligible based on patient's age to complete [...] Screening (11/01/2017) HIV Screening abstracted Historical Provider HEALTH MAINTENANCE Final Result * Hepatitis C Screening (11/01/2017) Hepatitis C Screening abstracted Historical Provider HEALTH MAINTENANCE Final Result * Pap smear (11/01/2017) 11/01/2017 Narrative HISTORICAL TESTING LAB RESULTING AGENCY - 11/04/2017 4:54 PM EDT [id number] THINPREP PAP, IMAGED: NEGATIVE FOR SQUAMOUS INTRAEPITHELIAL LESION AND MALIGNANCY ??. RESULT OF APTIMA HIGH RISK HPV ASSAY: ? NEGATIVE ?? (SEROTYPES 16,18,31,33,35,39,45,51,52,56,58,59,66,68) PRADIP GUZMAN(ASCP) (CASE ELECTRONICALLY SIGNED 11 04 2017) ADEQUACY: SATISFACTORY. ENDOCERVICAL/TRANSFORMATION ZONE COMPONENT PRESENT. SOURCE: THINPREP PAP HPV ANY DX: ??REFLEX 16 AND 18, CERVICAL, IMAGED: CLINICAL INFORMATION: HPV ANY DIAGNOSIS. Z12.4, PAP HX: NEGATIVE Result [facility] Lara Vallejo MD LAB CYTOLOGY ORDERABLES Fin [...] Based on the World Health Organization criteria, Ghisaline Muñoz should be classified as having osteoporosis. The [facility] Department of Internal Medicine recommends using [...] Muñoz should beclassified as having osteoporosis. The [facility] Department of Internal Medicine recommendsusing National [...] of fracture risk by FRAX. Johny BAIRES IMLary DXA PROCEDURES Final Result from Last 3 Months or Most Recently Relevant to Health Maintenance Insurance [facility] [employer] Care Teams Senior Safety Support Manager Relationship Specialty Start Date End Date Aure Caraballo MD PCP - General Internal Medicine 03/06/24
--- OUTSIDE RECORDS SUMMARY | 2024-08-14 09:34 | XMS_ITS ---
Author Organization [facility] Address [address] [place] [address] Care Team Providers Care Etymology Teacher Name Role Phone Rashmi LEIVA, Aure Primary Care Provider Ruth Garcia [phone] Encounters Encounter Location Date Provider Diagnosis [facility] [address] [place] [address] 04/16/2024 Ruth Le Plan Of Treatment No Information Progress Notes * Glenn MCCRARYaDOB:1965 ([age] yo F)Acc No.[id number]:04/16/2024 Progress Notes Patient:?Ghislaine MCCRARY Provider:?Ruth Le DPM :1965???Age:58 Y???Sex:Female D ate:04/16/2024 Address:[address] [place] [id number] Pcp:Aure Caraballo MD Subjective: * Chief Complaints: [...] Le DPM Date:?0 04/16/2024 Generated for Lito urrutia/Tricia/Andressmitting on:?08/14/2024 09:34 AM EDT
--- OUTSIDE RECORDS SUMMARY | 2024-08-14 09:34 | XMS_ITS | Continuity of Care Document ---
Author Organization [facility] Address [address] [place] [address] [address] [place] [address] Phone Care Team Providers Care Strand Galvanizer Name Role Phone Briana Durán NP Unavailable [...] Providers Copied on Encounter [facility], [address] [place] [address] [address], [place], [id number], [place] tel:[phone] CVR - [place] - [facility] - (Telangiect denise) [address] . [address] [facility], [address], [place], [place], [id number] , [place]. tel:[phone] Referring Provider: [facility] Reva, [address], [place], [address]. tel:[phone] Family History Family Member Type Diagnosis Age At Onset No Information Payers Payer name Insurance type Covered constitution party ID Authoriza tion(s) [facility] SCO CI [id number] Social History Type Description Quantity Date Captured [...]
--- OUTSIDE RECORDS SUMMARY | 2024-08-14 09:34 | XMS_ITS | Patient Health Record ---
Author Organization [facility] Address [address] [place] [address] Care Team Providers Care Brand Sales Manager Name Role Phone Aure Caraballo MD Primary Care Provider Ruth Garcia Unavailable [phone] Reason For Referral No Information Encounters Encounter Location Date Provider Diagnosis [facility] [address] [place] [address] 02/21/2024 Ruth Le Plan Of Treatment No Information
--- OUTSIDE RECORDS SUMMARY | 2024-08-14 09:34 | XMS_ITS ---
Author Organization [facility] Address [address] [place] [address] Care Team Providers Care Imaging Analyst Name Role Phone Aure Caraballo MD Primary Care Provider Lionela Ruth August [phone] REASON FOR VISIT DEAN OF GIRLS Encounters Encounter Location Date Provider Diagnosis [facility] [address] [place] [address] 02/21/2024 Ruth Le Plan Of Treatment No Information Progress Notes * Bong CHINB:1965 ([age] yo F)Acc No.[id number]:02/21/2024 Patient:?Ghislaine CHIN :1965???Age:58 Y???Sex:Female Address:[address] [place] [address], [address] * true * Date:? Generated for Lito urrutia/Tricia/eTransmitting on:?08/14/2024 09:34 AM EDT
== END 2024-08-14 09:34 | disposition home or self-care (01) ==
LOC: HO.HMCC 08:57
PROVIDERS: PCP Internal Medicine; Visit Provider Internal Medicine
DX: E04.9 Nontoxic goiter, unspecified (principal); I10 Essential (primary) hypertension; J44.9 Chronic obstructive pulmonary disease, unspecified; M05.9 Rheumatoid arthritis with rheumatoid factor, unspecified; R05.3 Chronic cough; K21.9 Gastro-esophageal reflux disease without esophagitis

== ENCOUNTER 2024-08-14 08:56 | Outpatient (REF) | payer OTHER, SELFPAY ==
--- NOTE | ~2024-08-14 | XR_ITS ---
EXAMINATION: XR CHEST CLINICAL INFORMATION: R05.9 - Cough, unspecified COMPARISON: None available. TECHNIQUE: 2 views of the chest were obtained. FINDINGS: Pulmonary reticular pattern. No consolidation, pleural effusion or pneumothorax. Cardiomediastinal silhouette size is normal. Multilevel thoracic and upper lumbar spondylosis. Metallic or radiopaque hardware both glenohumeral joints. Osteopenia versus osteoporosis. XR/XR chest 2V IMPRESSION: Chronic interstitial lung disease without acute airspace disease. Postsurgical changes both shoulders. Electronically signed by: Zia Avelar MD 08/14/2024 11:49 AM EDT
--- OUTSIDE RECORDS SUMMARY | 2024-08-14 12:29 | XMS_ITS | Clinical Summary ---
Author Organization [facility] Address [address] [place] [address] Phone Care Team Providers Care Naturopathic Doctor Name Role Phone Aure Caraballo MD Primary Care Provider [phone] Allergies Active Allergy Reactions Criticality Noted Date [...] We will try to get records from [facility]. History of COVID-19 12/01/2020 Overview (04/24/2024): [...] out cholecystitis without obstruction 01/09/2015 COPD, mild ([facility] V24, [facility] V28) 10/14/2014 Seropositive rheumatoid arth ritis of multiple sites ([facility] V24, [facility] V28) 08/18/2012 Overview (04/24/2024): Onset fall 2011. Rheumatoid factor, CCP Ab both markedly positive. Hand films show some x-ray changes July 2012.Methotrexate started 08/21. Enbrel added 08/22. 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 Rheumatoid factor, CCP [...] RESULTING AGENCY - 11/04/2017 4:54 PM EDT [id number] THINPREP PAP, IMAGED: NEGATIVE FOR SQUAMOUS INTRAEPITHELIAL LESION AND MALIGNANCY ??. RESULT OF APTIMA HIGH RISK HPV ASSAY: ? NEGATIVE ?? (SEROTYPES 16,18,31,33,35,39,45,51,52,56,58,59,66,68) PRADIP GUZMAN(ASCP) (CASE ELECTRONICALLY SIGNED 11 04 2017) ADEQUACY: SATISFACTORY. ENDOCERVICAL/TRANSFORMATION ZONE COMPONENT PRESENT. SOURCE: THINPREP PAP HPV ANY DX: ??REFLEX 16 AND 18, CERVICAL, IMAGED: CLINICAL INFORMATION: HPV ANY DIAGNOSIS. Z12.4, PAP HX: NEGATIVE Result [facility] Lara Vallejo MD LAB CYTOLOGY ORDERABLES Fin [...] should be classified as having osteoporosis. The [facility] Department of Internal Medicine recommends using National [...] Muñoz should beclassified as having osteoporosis. The [facility] Department of Internal Medicine recommendsusing National Osteoporosis [...] Most Recently Relevant to Health Maintenance Insurance [facility] [employer] Care Teams Naturopathic Doctor Relationship Specialty Start Date End Date Aure Caraballo MD PCP - General Internal Medicine 03/06/24
--- OUTSIDE RECORDS SUMMARY | 2024-08-14 12:29 | XMS_ITS | Continuity of Care Document ---
Author Organization [facility] Address [address] [place] [address] Dr [address] [place] [address] Phone Care Team Providers Care Home School Liaison Officer Name Role Phone Briana Durán NP Unavailable [...] Providers Copied on Encounter [facility], [address] [place] [address] [address], [place], [id number], [place] tel:[phone] CVR - [place] - [facility] - (Telangiect denise) [address] . [address] [facility], [address], [place], [place], [id number] , [place]. tel:[phone] Referring Provider: [facility] Reva, [address], [place], [address]. tel:[phone] Family History Family Member Type Diagnosis Age At Onset No Information Payers Payer name Insurance type Covered republican ID Authoriza tion(s) [facility] SCO CI [id number] Social History Type Description Quantity Date Captured [...]
[2024-08-14 14:26] LABS: TSH reflex Free T4 2.71 uIU/mL (0.32-4.0); Vitamin D 25-OH Total 46.3 ng/mL (>30)
== END 2024-08-14 08:57 | disposition home or self-care (01) ==
LOC: HO.HMGCX 08:56
PROVIDERS: PCP Internal Medicine; Visit Provider Internal Medicine
DX: R05.3 Chronic cough (principal); J44.9 Chronic obstructive pulmonary disease, unspecified; E04.9 Nontoxic goiter, unspecified; I10 Essential (primary) hypertension; M05.9 Rheumatoid arthritis with rheumatoid factor, unspecified; K21.9 Gastro-esophageal reflux disease without esophagitis; Z79.899 Other long term (current) drug therapy; Z00.00 Encounter for general adult medical examination without abnormal findings
CPT/HCPCS: 36415; 71046; 82306; 84443; 99212

== ENCOUNTER → 2024-08-14 10:53 | Outpatient (BNV) | payer OTHER, SELFPAY | PROVIDERS: PCP Internal Medicine; Visit Provider Radiology Diagnostic Radiology | DX: J84.9 Interstitial pulmonary disease, unspecified (principal) | CPT/HCPCS: 71046 ==

== ENCOUNTER 2024-09-14 14:00 | Outpatient (REF) | payer OTHER, SELFPAY ==
--- NOTE | ~2024-09-14 | US_ITS ---
EXAMINATION: US THYROID HISTORY: R05.9 - Cough, unspecified TECHNIQUE: Real-time grayscale ultrasound imaging was performed and images were reviewed. COMPARISON: There are no prior studies available for comparison. FINDINGS: SIZE: The right thyroid lobe measures 3.5 x 1.7 x 1.4 cm. The left thyroid lobe measures 3.0 x 1.4 x 1.6 cm. The isthmus measures 2 mm. FLOW: Flow to the gland is normal. ECHOGENICITY: The echotexture of the gland is homogeneous. NODULES: A single 4 x 3 x 4 mm cystic nodule is seen in the left thyroid lobe. US/US thyroid IMPRESSION: 4 x 3 x 4 mm cystic nodule in the left thyroid lobe. Otherwise unremarkable thyroid ultrasound. ACR TI-RADS Guidelines TR1 (0 points): Benign, No follow-up or biopsy required TR2 (2 points): Not Suspicious, No biopsy or follow up indicated TR3 (3 points): Mildly Suspicious, FNA if >= 2.5 cm, Follow if >= 1.5 cm TR4 (4-6 points): Moderately Suspicious, FNA if >= 1.5 cm, Follow if >= 1.0 cm TR5 (>=7 points): Highly Suspicious, FNA if >= 1.0 cm, Follow if >= 0.5 cm Electronically signed by: Marv Cazares MD 09/14/2024 03:11 PM EDT
== END 2024-09-14 14:01 | disposition home or self-care (01) ==
LOC: HO.HMGCX 14:00
PROVIDERS: PCP Internal Medicine; Visit Provider Internal Medicine
DX: R05.9 Cough, unspecified (principal); E04.9 Nontoxic goiter, unspecified; J44.9 Chronic obstructive pulmonary disease, unspecified
CPT/HCPCS: 76536

== ENCOUNTER → 2024-09-14 14:15 | Outpatient (BNV) | payer OTHER, SELFPAY | PROVIDERS: PCP Internal Medicine; Visit Provider Radiology Diagnostic Radiology | DX: E04.1 Nontoxic single thyroid nodule (principal) | CPT/HCPCS: 76536 ==

== ENCOUNTER 2024-09-26 14:10 | Outpatient (REF) | payer OTHER, SELFPAY ==
--- OUTSIDE RECORDS SUMMARY | 2022-10-26 09:30 | XMS_ITS | Continuity of Care Document ---
Author Organization [facility] Address [address] [place] [address] [address] [place] [phone] Phone Care Team Providers Care Trapper Animal Name Role Phone Briana Durán NP Unavailable [...] Providers Copied on Encounter [facility], [address] [place] [address] [address], [place], [id number], [place] tel:[phone] CVR - [place] - [place] [facility] - (Telangiect denise) [address] . [address] [facility], [address], [place], [place], [id number] , [place]. tel:[phone] Referring Provider: [facility] Reva, [address], [place], [address]. tel:[phone] Family History Family Member Type Diagnosis Age At Onset No Information Payers Payer name Insurance type Covered libertarian ID Authoriza tion(s) [facility] SCO CI [id number] Social History Type Description Quantity Date Captured [...]
--- NOTE | 2024-09-26 14:19 | PFT_ITS ---
Indication: Cough Spirometry FEV1 to FVC 86%; FEV1 2.41 L; FVC 2.82 L. No significant response to bronchodilators noted. Lung Volumes [Total lung capacity 80% predicted; residual volume 68% predicted; expiratory reserve volume 34% predicted] Diffusion Capacity DLCO 91% predicted Comparisons None Interpretation No obstructive nor restrictive ventilatory defects identified. No significant response to bronchodilators noted. Flow volume loop the South some saw tooth appearance during the expiratory phase suggesting the possibility of coughing or redundant tissue. Lung volumes are low normal. Diffusing capacity is within normal limits. Clinical correlation warranted. MTDD
[2024-09-26 14:51] VITALS: PULSE 94; O2SAT 96
== END 2024-09-26 14:11 | disposition home or self-care (01) ==
LOC: HO.RESP 14:10
PROVIDERS: PCP Internal Medicine; Visit Provider Internal Medicine
DX: J44.9 Chronic obstructive pulmonary disease, unspecified (principal); R05.9 Cough, unspecified
CPT/HCPCS: 94010; 94640; 94727; 94729

== ENCOUNTER → 2024-09-26 14:19 | Outpatient (BNV) | payer OTHER, SELFPAY | PROVIDERS: PCP Internal Medicine; Visit Provider Hospitalist | DX: R05.9 Cough, unspecified (principal) | CPT/HCPCS: 94060; 94727; 94729 ==

== ENCOUNTER 2024-12-19 11:00 | Outpatient (REF) | payer OTHER, SELFPAY ==
--- OUTSIDE RECORDS SUMMARY | 2024-04-16 05:30 | XMS_ITS ---
Author Organization [facility] Address [address] [place] [address] Care Team Providers Care Director Of Teacher Education Name Role Phone Aure Caraballo MD Primary Care Provider Ruth Garcia [phone] Encounters Encounter Location Date Provider Diagnosis [facility] [address] [place] [address] 04/16/2024 Ruth Le Plan Of Treatment No Information Progress Notes * Glenn MCCRARYOsminB:1965 ([age] yo F)Acc No.[id number]:04/16/2024 Progress Notes Patient: Ghislaine ESTEVEZ Provider: Christo Le DPM :1965 A ge:58 Y S ex:Female Date:04/16/2024 Address:[address] [place] [phone] Pcp:Aure Caraballo MD Subjective: * Chief Complaints: * * Medical History: Objective: * Vitals: Assessment: Plan: * Treatment: * Images: * The named appointment provid er may or may not be the originator of this progress note, and it is not deemed complete until electronically signed by the appointment provider. Sign off status: Pending * Provider: Christo Le DPM Date: 04/16/2024 Generated for Lito ng/Famarianag/eTransmitting on: 12/19/2024 02:02 PM EDT
[2024-12-19 14:01] LABS: Baso%MD 0.6 %; Eos%MD 0.9 %; Hematocrit 41.6 % (37.0-47.0); Hemoglobin 14.0 g/dl (12.0-16.0); IG%MD 0.7 %; Lymph%MD 50.8 %; Mean Corpuscular HGB Conc 33.7 g/dl (31.0-35.0); Mean Corpuscular Hemoglobin 28.8 pg (27.0-33.0); Mean Corpuscular Volume 85.6 fL (80.0-98.0); Mono%MD 7.1 %; NRBC Abs Auto 0.000 X10*3/uL (0.0-0.012); NRBC Pct Auto 0.0 /100WBC (0.0-0.2); Neut%MD 39.9 %; Platelet Count 259 X10*3/uL (160-400); Red Blood Count 4.86 X10*6/uL (4.20-5.50); White Blood Count 10.1 X10*3/uL (4.8-10.8)
--- OUTSIDE RECORDS SUMMARY | 2024-12-19 14:02 | XMS_ITS | Patient Health Record ---
Author Organization [facility] Address [address] [place] [address] Care Team Providers Care Facility Sales And Admin Name Role Phone Aure Caraballo MD Primary Care Provider Ruth Garcia Unavailable [phone] Reason For Referral No Information Encounters Encounter Location Date Provider Diagnosis [facility] [address] [place] [address] 02/21/2024 Ruth Le Plan Of Treatment No Information
--- OUTSIDE RECORDS SUMMARY | 2024-12-19 14:02 | XMS_ITS | Clinical Summary ---
Author Organization [address] [facility] Address [address] [place] [address] Phone Care Team Providers Care Rn Appeals Name Role Phone Aure Caraballo MD Primary Care Provider [phone] Allergies Active Allergy Reactions Criticality Noted Date [...] We will try to get records from [facility]. 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 Rheumatoid factor, CCP Ab both markedly positive. Hand films show some x-ray changes July 2012.Methotrexate started 08/21. Enbrel added 08/22. Enbrel changed to Humira 10/23 IBS (irritable bowel syndrome) 10/24/2008 Idiopathic scoliosis and kyphoscoliosis 02/29/20 Overview (04/24/2024): mild Immunizations Name Administration Dates Next Due Hepatitis B (Kdpqjyp-Q-Pvhnd , Recombivax HB-Adult) 19yo and older 02/18/2005,05/29/2004,04/24/2004 [...] SURGERY Left PROCEDURE: HISTORICAL HAND SURGERY; COMMENT: boxjohn fracture - ORIF Medical History Medical History [...] DX:Seropositive rheumatoid a rthritis of multiple sites ([facility]); COMMENT: Onset fall 2011. Rheumatoid factor, CCP [...] Care Team (Late st Contact Info) Description 01/15/2025 1:00 PM EDT Consult Orthopedic Surgery - [place] [address] [address] Kendall Ross, DPM [address] [address] Health Maintenance Due Date Last Done Comments Zoster Vaccines (1 of 2) 09/26/2015 Pneumococcal Vaccine: 50+ Years (2 of 2 - PCV) 01/04/2016 01/03/2015 Cervical Cancer Screening: Pap Smear 11/01/2020 11/01/2017, 11/01/2017, 11/01/2017 Colorectal Cancer Screening: Stool Based Tests (FOBT/FIT) 03/20/2022 Social Influencers of Health Screening 03/20/2022 Depression Screening 04/11/2024 Breast Cancer Screening 07/14/2024 07/15/19, 12/10/2020, 12/06/2019, Additional history exists COVID-19 Vaccine ( season) 2024 01/22/2021, 06/11/2020, 05/21/2020 Influenza Vaccine (#1) 2024 2, 12/31/2020, 01/01/2020, Additional history exists Cholesterol Screening (Lipid Panel) 04/16/2027 04/16/2022 Osteoporosis Screening (Bone Density Screening) 07/21/2027 07/20/2017 DTaP,Tdap,and Td Vaccines (4 - Td or Tdap) 08/20/2030 08/20/2020, 10/24/2008, 04/24/2004 RSV Immunization Adult Patients (1 - 1-dose 75+ series) 2040 Hepatitis B Vaccines Completed 02/18/2005, 05/29/2004, 04/24/2004 [...] to 08/17/2017 with most recent of 12/10/2020. The breasts are composed of fatty and fibroglandular tissue. No suspicious mass, architectural distortion or suspicious calcifications [...] Screening (11/01/2017) Hepatitis C Screening abstracted Result [facility] Provider HEALTH MAINTENANCE Final Result * Pap smear (11/01/2017) 11/01/2017 Narrative HISTORICAL TESTING LAB RESULTING AGENCY - 11/04/2017 4:54 PM EDT [id number] THINPREP PAP, IMAGED: NEGATIVE FOR SQUAMOUS INTRAEPITHELIAL LESION AND MALIGNANCY . RESULT OF APTIMA HIGH RISK HPV ASSAY: NEGATIVE (SEROTYPES 16,18,31,33,35,39,45,51,52,56,58,59,66,68) PRADIP GUZMAN(ASCP) (CASE ELECTRONICALLY SIGNED 11 04 2017) ADEQUACY: SATISFACTORY. ENDOCERVICAL/TRANSFORMATION ZONE COMPONENT PRESENT. SOURCE: THINPREP PAP HPV ANY DX: REFLEX 16 AND 18, CERVICAL, IMAGED: CLINICAL INFORMATION: HPV ANY DIAGNOSIS. Z12.4, PAP HX: NEGATIVE Lara Vallejo MD LAB CYTOLOGY ORDERABLES Fin al Result HISTORICAL TESTING LAB RESULTING AGENCY * DXA BONE DENSITY STUDY 1+ SITS AXIAL SKEL (07/20/2017 4:01 PM EDT) Anatomical Region Laterality Modality Bone Densitometr y 06/23/2017 12:5 6 PM EDT Narrative 07/21/2017 3:28 PM EDT BONE DENSITY Lumbar Spine T-score is -4.0 [...] should be classified as having osteoporosis. The [facility] Department of Internal Medicine recommends using [...] Muñoz should beclassified as having osteoporosis. The [facility] Department of Internal Medicine recommendsusing National [...] Most Recently Relevant to Health Maintenance Insurance [employer] Care Teams Rn Appeals Relationship Specialty Start Date End Date Aure Caraballo MD [address] [place] [address] PCP - General Internal Medicine 03/06/24
[2024-12-19 14:06] LABS: Alanine Aminotransferase 41 U/L (0-31); Albumin Level 4.3 g/dL (3.5-5.0); Alkaline Phosphatase 63 U/L (39-117); Anion Gap 13 (12-20); Aspartate Amino Transferase 34 U/L (5-31); Blood Urea Nitrogen 15 mg/dL (9-16); Calcium 9.0 mg/dL (8.4-10.2); Carbon Dioxide 25 mmol/L (22-29); Chloride 106 mmol/L (96-108); Cholesterol 219 mg/dL (<200); Estimated Glomerular Filt Rate > 60; HDL Cholesterol 60 mg/dL (>40); Potassium 4.0 mmol/L (3.3-5.1); Sodium 140 mmol/L (135-145); Total Protein 7.9 g/dL (6.5-8.0); Triglycerides 91 mg/dL (<150)
[2024-12-19 15:34] LABS: Basophils Abs Manual 0.1 X10*3/uL (0.0-0.2); Basophils Percent Manual 1 % (0-2); Eosinophils Absolute Manual 0.1 X10*3/uL (0.0-0.4); Eosinophils Percent Manual 1 % (0-4); Lymphocytes Absolute Manual 5.8 X10*3/uL (1.2-4.9); Lymphocytes Percent Manual 57 % (20-40); Monocytes Absolute Manual 0.5 X10*3/uL (0.1-1.2); Monocytes Percent Manual 5 % (2-11); Neutrophils Percent Manual 36 % (45-73)
[2024-12-19 15:35] LABS: RBC Morphology NORMAL
[2024-12-19 15:36] LABS: Band Neutrophils Percent 0 % (3-5); Neutrophils Absolute Manual 3.6 X10*3/uL (2.0-8.3)
[2024-12-20 08:23] LABS: HBS Num1 177.46 mIU/mL (0-7.99); HBc Num1 0.22 S/CO (0.00-0.79); HBsAGNum1 0.50 S/CO (0.00-0.99); Hepatitis A Antibody IgM 0.19 Index (0-0.79); Hepatitis B Surface Antigen Negative (Negative); ~HepC Num1 0.17 S/CO (0.00-0.79); ~Hepatitis A Antibody IgM Nonreactive (Nonreactive); ~Hepatitis B Surface Antibody REACTIVE (Nonreactive); ~Hepatitis C Antibody Nonreactive (Nonreactive)
[2024-12-22 03:38] LABS: TS Negative Control Passed; TS Panel A 0; TS Panel B 0; TS Positive Control Passed; TSpotTB Negative (Negative)
== END 2024-12-19 11:01 | disposition home or self-care (01) ==
LOC: HO.HMGCLDS 11:00
PROVIDERS: PCP Internal Medicine; Referring Provider Student in an Organized Health Care Education/Training Program; Visit Provider Internal Medicine
DX: Z51.81 Encounter for therapeutic drug level monitoring (principal); Z00.00 Encounter for general adult medical examination without abnormal findings; M05.9 Rheumatoid arthritis with rheumatoid factor, unspecified; M32.9 Systemic lupus erythematosus, unspecified; E04.9 Nontoxic goiter, unspecified; M81.0 Age-related osteoporosis without current pathological fracture; I10 Essential (primary) hypertension; Z11.4 Encounter for screening for human immunodeficiency virus [HIV]; Z11.59 Encounter for screening for other viral diseases; Z11.1 Encounter for screening for respiratory tuberculosis; Z79.899 Other long term (current) drug therapy; Z79.620 Long term (current) use of immunosuppressive biologic
CPT/HCPCS: 36415; 80053; 80061; 82306; 84443; 85007; 85027; 85652; 86140; 86481; 86704; 86706; 86709; 86803; 87340; 99212

== ENCOUNTER 2024-12-19 14:15 | Outpatient (AMB) | payer OTHER, SELFPAY ==
--- NOTE | 2024-12-19 14:18 | A.OFFVIS_ITS ---
Vital Signs 12/19/24 14:27 Height 5 ft 3 in Weight 178 lb 5.663 oz BMI 31.6 BP 142/100 H Blood Pressure Location Lt brachial Position Sitting Pulse 93 Pulse Source Pulse Oximeter Pulse Oximetry (%) 97 Oxygen Delivery Method Room Air Intake Visit Reasons: RA Intake Note: Patient presents for RA follow up. Allergies amoxicillin Allergy (Intermediate, Verified 12/19/24 14:22) Vomiting/diarrhea alendronate sodium (From Fosamax) Adverse Reaction (Intermediate, Verified 12/19/24 14:22) Heartburn Medication List - Last Reconciled 12/19/24 by Nichol Webb MD albuterol sulfate 2.5 mg inhalation Q4-6H PRN albuterol sulfate 90 mcg/actuation 2 puffs inhalation Q6H PRN clobetasol 0.05% 1 appl topical BEDTIME Humira(CF) Pen (adalimumab) 40 mg (0.4 mL) subcut Q2W NS multivitamin 1 tab PO DAILY omeprazole 20 mg PO DAILY valsartan 80 mg PO DAILY HPI Comments Details: Patient is a 59 year old female with asthma, GERD, hypertension, osteoporosis, and seropositive rheumatoid arthritis here today for follow up Interval History: Patient last seen 01/02/[address] 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 - She states that she has been having some minimal right knee pain especially when standing up after sitting down for some time. She also has noticed that her right 5th toe is turning in worse and she also has some swelling and pain on the outer aspect of her right foot. - Recommended trial of advancing Humira to every 2 weeks to see if there is any additional benefit Since then - She self discontinued her Humira because she felt she was in remission and was doing well for 6 months but then had a significant flare of her disease and required a prednisone taper - Restarted Humira 40mg SC every 2 weeks Today - On Humira 40mg SC every 2 weeks - Patient Rheumatologic History: Onset fall 2011++RF+++CCP Hand films show some x-ray changes July 2012. MTX started 08/21. Enbrel added 08/22. 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 Osteoporosis Seropositive rheumatoid arthritis (~2011) Surgical History Hx of shoulder surgery Family History Father HTN (hypertension) Diabetes Afib Lymphoma Paternal Grandmother Breast cancer Paternal Aunt Breast cancer Brother Ankylosing spondylitis Social History Household Members Other:: lives alone with disable person, Housing: Apartment Are you a primary personal caregiver to a significant other at home: No Do you presently have visiting nurse or other home services: No 75 years or older and lives alone: No Alcohol intake: current Alcohol intake frequency: 0-2 drinks per day Alcohol type: wine Patient Tobacco Use Status: Former Tobacco user Years Smoked: (onset 14yo, 1ppd x 30yrs, 30pyh - quit 04/04/2010) e-Cigarette/Vaping Use: Never Used service: No Current occupational status: employed 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 Cognitive needs: No Hearing needs: No Vision needs: Yes Review of Systems Const Details: Review of Systems Constitutional: Denies fever, chills, weight loss ENT: Denies vision changes, eye pain or eye redness, dental caries, dry mouth GI: Denies nausea, vomiting, diarrhea, abdominal pain, change in BM Pulm: Denies SOB, SHARMA, hemoptysis, wheezing Cards: Denies chest pain, palpitations Skin: Denies Raynaud's, rash, nail changes, photosensitivity, MARINE CARGO SPECIALIST: Denies headaches, weakness, paresthesias, recurrent falls MSK: as per HPI All other systems reviewed and are unremarkable except noted above Physical Exam Exam Exam: Vital signs reviewed Physical Examination CONSTITUITIONAL Patient alert and cooperative. Well appearing and in no apparent painful distress MSK Hands * Right Hand: Able to make a fist. No swelling or tenderness to palpation of the MCPs, PIPs or DIPs. * Left Hand: Able to make a fist. No swelling or tenderness to palpation of the MCPs, PIPs or DIPs. Wrists * Right Wrist: Full ROM to flexion and extension. No swelling or TTP * Left Wrist: Full ROM to flexion and extension. No swelling or TTP Elbows * Right Elbow: Full ROM. No swelling or TTP. No TTP of the medial epicondyle. No TTP of the lateral epicondyle * Left Elbow: Full ROM. No swelling or TTP. No TTP of the medial epicondyle. No TTP of the lateral epicondyle Shoulders * Right shoulder: No swelling noted. No TTP of the AC joint. No TTP of the subacromial bursa. No TTP of the posterior shoulder * Left shoulder: No swelling noted. No TTP of the AC joint. No TTP of the subacromial bursa. No TTP of the posterior shoulder Knees * Right knee: Full ROM. No swelling noted. No TTP of the knee joint line. No TTP of pes anserine bursa * Left knee: Full ROM. No swelling noted. No TTP of the knee joint line. No TTP of pes anserine bursa. * Crepitations felt bilaterally Ankles * Right ankle: Good ankle dorsiflexion and plantar flexion. No swelling. No TTP of the ankle joint * Left ankle: Good ankle dorsiflexion and plantar flexion. No swelling. No TTP of the ankle joint Feet * Right foot: Negative squeeze test * Left foot: Negative squeeze test Tender points? * No tenderness to palpation of the bilateral trapezius, supraspinatus, anterior costochondral junctions, bilateral suboccipital muscle insertions SKIN No rashes Vital Signs: Last Vital Signs Pulse 93 12/19/24 14:27 BP 142/100 H 12/19/24 14:27 Pulse Ox 97 12/19/24 14:27 Oxygen Delivery Method Room Air 12/19/24 14:27 BMI result Body Mass Index 31.6 Results Reviewed Results Reviewed: Laboratory Tests 06/22/24 12/19/24 14:06 11:24 WBC 10.1 RBC 4.86 Hgb 14.0 Hct 41.6 Plt Count 259 ESR 10 Pending Sodium 140 Potassium 4.0 Chloride 106 Carbon Dioxide 25 BUN 15 Creatinine 0.77 AST 34 H ALT 41 H C-Reactive Protein 0.12 Laboratory Tests 12/30/23 14:41 Hepatitis A IgM Ab Nonreactive Hep Bs Antigen Negative Hep Bs Antibody REACTIVE Hep B Core Total Ab Nonreactive Hepatitis C Ab (EIA) Nonreactive Assessment & Plan Assessment & Plan (1) Seropositive rheumatoid arthritis: Onset Date: ~2011 Comment: Onset fall 2011++RF+++CCP Hand films show some x-ray changes July 2012. MTX started 08/21. Enbrel added 08/22. Enbrel changed to Humira 10/23 Code(s): M05.9 - Rheumatoid arthritis with rheumatoid factor, unspecified Category: Medical Plan: #Seropositive RA Patient is a 59-year-old female with seropositive rheumatoid arthritis here today for follow up. Today she has no active signs of rheumatoid arthritis and is currently resolving from a flare on a background of self discontinuing her medication. No reactions with Humira and is tolerating this medication. She is to complete her prednisone taper and continue her Humira as prescribed. Known shoulder surgery bilaterally, complaining of right shoulder pain today. Recommended that patient follow up with her ortho surgeon Plan - Humira 40mg SC every 2 weeks - Complete prednisone taper - RTC 6 months - Labs before visit: CBC, CMP, ESR, CRP (2) Osteoporosis: Comment: DEXA 10/2022: AP Spine -4.3, Left femur neck -2.9, Left femur total -2.0 IV Reclast x 1 dose Code(s): M81.0 - Age-related osteoporosis without current pathological fracture Category: Medical Qualifiers: Osteoporosis type: age-related Presence of current pathological fracture: without current pathological fracture Qualified Code(s): M81.0 - Age- related osteoporosis without current pathological fracture Plan: #Osteoporosis Patient with severe osteoporosis of the spine status post 1 dose of IV Reclast back in 2022. We will need to get a repeat bone density to see what her current status is but I suspect she continues to have osteoporosis and will likely need to restart her infusion. Plan - Check DEXA - VIt D at next blood draw (3) Encounter for monitoring of adalimumab therapy: Code(s): Z51.81 - Encounter for therapeutic drug level monitoring; Z79.620 - halfway (current) use of immunosuppressive biologic Plan: #Long-term Use of TNF Inhibitors: Humira Discussed with the patient the benefits and risks of TNF inhibitors for the management of the rheumatic condition Benefits include reduce pain, maintenance of remission and reduction of flares as well as progression of the disease Risks include injection sites/infusion reactions, serious infections (such as bacterial infections, opportunistic infections), malignancy, delaminating syndromes, autoimmune phenomena, CHF exacerbations, palmar plantar psoriasis and cytopenias Recommended rotating injection sites, and holding medication during and for up to 1 week after resolution of a febrile illness or open skin wound Plan This is my first visit with the patient. 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 Vitamin D 25-OH Total 6 Months M81.0 - Age-related osteoporosis without current pathological fracture C Reactive Protein 6 Months M81.0 - Age-related osteoporosis without current pathological fracture, Z79.899 - Other alf (current) drug therapy Erythrocyte Sedimentation Rate 6 Months M81.0 - Age-related osteoporosis without current pathological fracture, Z79.899 - Other alf (current) drug therapy Medications: Discontinued prednisone Take 3 tablets for 7 days then 2 tablets for 7 days then 1 tablet for 7 days then stop Discontinued Reason: Patient Completed Course 5 mg PO DIRECTED 42 tabs 0RF M05.9 - Rheumatoid arthritis with rheumatoid factor, unspecified Coding Level of Care Code Est Pt Level 5 (74194) Complex EM visit Add On G2211 Diagnoses Seropositive rheumatoid arthritis M05.9 Age-related osteoporosis without current pathological fracture M81.0 Osteoporosis type: age-related Presence of current pathological fracture: without current pathological fracture Encounter for monitoring of adalimumab therapy Z51.81; Z79.519
[2024-12-19 14:27] VITALS: BP 142/100; PULSE 93; O2SAT 97; BMI 31.6
== END 2024-12-19 15:06 | disposition home or self-care (01) ==
LOC: HO.RHES 14:15
PROVIDERS: PCP Internal Medicine; Visit Provider Student in an Organized Health Care Education/Training Program
DX: M05.79 Rheumatoid arthritis with rheumatoid factor of multiple sites without organ or systems involvement (principal); M81.0 Age-related osteoporosis without current pathological fracture; Z51.81 Encounter for therapeutic drug level monitoring; Z79.620 Long term (current) use of immunosuppressive biologic
CPT/HCPCS: 99215

== ENCOUNTER 2025-01-23 03:18 | Emergency (ER) | payer OTHER, SELFPAY ==
--- OUTSIDE RECORDS SUMMARY | 2024-04-16 05:30 | XMS_ITS ---
Author Organization [facility] Address [address] [place] [phone] Care Team Providers Care Occupational Therapy Aide Name Role Phone Rashmi LEIVA, Aure Primary Care Provider Ruth Garcia [phone] Encounters Encounter Location Date Provider Diagnosis [facility] [address] [place] [address] 04/16/2024 Ruth Le Plan Of Treatment No Information Progress Notes * Glenn MCCRARYOsminB:1965 ([age] yo F)Acc No.[id number]:04/16/2024 Progress Notes Patient: Ghislaine ESTEVEZ Provider: Christo Le DPM :1965 A ge:58 Y S ex:Female Date:04/16/2024 Address:[address] [place] [phone] Pcp:Aure Caraballo MD Subjective: * Chief Complaints: [...] DPM Date: 0 04/16/2024 Generated for Lito urrutia/Tricia/eTransmitting on: 04:48 AM EDT
--- NOTE | 2025-01-23 | ECG_ITS ---
Test Reason : ARRYTHMIA Blood Pressure : */* mmHG Vent. Rate : 105 BPM Atrial Rate : 105 BPM P-R Int : 144 ms QRS Dur : 72 ms QT Int : 322 ms P-R-T Axes : 26 40 43 degrees QTcB Int : 425 ms Sinus tachycardia Otherwise normal ECG When compared with ECG of 08-Mar-2022 00:13, No significant change was found Referred By: Generic ED Physician Electronically Signed By: Chris Leung
[2025-01-23 03:19] VITALS: BP 167/105; PULSE 110; O2SAT 100
[2025-01-23 03:34] VITALS: BP 137/91; PULSE 103; RESP 19; TEMP 36.8; O2SAT 96; BMI 32.8
[2025-01-23 03:57] LABS: MANUAL DIFF FLAG NO
[2025-01-23 04:00] LABS: Hematocrit 39.3 % (37.0-47.0); Hemoglobin 12.9 g/dl (12.0-16.0); Imm Gran Abs Auto 0.02 X10*3/uL (0.00-0.03); Imm Gran Pct Auto 0.2 % (0.0-0.4); Lymphocytes Absolute Auto 3.9 X10*3/uL (1.2-4.9); Mean Corpuscular HGB Conc 32.8 g/dl (31.0-35.0); Mean Corpuscular Hemoglobin 28.4 pg (27.0-33.0); Mean Corpuscular Volume 86.4 fL (80.0-98.0); NRBC Abs Auto 0.000 X10*3/uL (0.0-0.012); NRBC Pct Auto 0.0 /100WBC (0.0-0.2); Platelet Count 284 X10*3/uL (160-400); Red Blood Count 4.55 X10*6/uL (4.20-5.50); White Blood Count 9.1 X10*3/uL (4.8-10.8)
[2025-01-23 04:16] LABS: Alanine Aminotransferase 35 U/L (0-31); Albumin Level 4.2 g/dL (3.5-5.0); Alkaline Phosphatase 74 U/L (39-117); Anion Gap 12 (12-20); Aspartate Amino Transferase 33 U/L (5-31); Blood Urea Nitrogen 14 mg/dL (9-16); Calcium 9.2 mg/dL (8.4-10.2); Carbon Dioxide 25 mmol/L (22-29); Chloride 106 mmol/L (96-108); Creatinine Clr Calc Pharmacy 86.3; Estimated Glomerular Filt Rate > 60; Magnesium 2.0 mg/dL (1.6-2.6); Potassium 4.0 mmol/L (3.3-5.1); Sodium 139 mmol/L (135-145); Total Protein 7.6 g/dL (6.5-8.0)
[2025-01-23 04:21] LABS: Troponin-I High Sensitivity < 2.7 ng/L (<3.5-17.0)
--- OUTSIDE RECORDS SUMMARY | 2025-01-23 04:48 | XMS_ITS | Patient Health Record ---
Author Organization [facility] Address [address] [place] [address] Care Team Providers Care Car Clerk [place] Name Role Phone Aure Caraballo MD Primary Care Provider Ruth Garcia Unavailable [phone] Reason For Referral No Information Encounters Encounter Location Date Provider Diagnosis [facility] [address] [place] [address] 02/21/2024 Ruth Le Plan Of Treatment No Information
--- NOTE | 2025-01-23 06:57 | ED_ITS ---
HPI - Arrhythmia/Palpitations General Chief Complaint: Arrhythmia/Palpitations Stated Complaint: FEELS HEART BEATING FAST Time Seen by Provider: 01/23/25 06:37 Source: patient, EMS and old records reviewed Mode of arrival: EMS Limitations: no limitations History of Present Illness ED Provider: Dr. Alannah Templeton HPI narrative: 59-year-old female with history of SVT, hypertension, COPD, rheumatoid arthritis on Humira presenting with racing heartbeat that occurred at home tonight. States that she was getting ready for bed when she suddenly felt her heart beating very fast. Admits that it felt like a previous episode of SVT. She called 911 and indeed, her heart rate was in the 200s upon arrival of EMS. She spontaneously converted to normal sinus rhythm. Admits that she has been taking all of her medications as prescribed but does not take anticoagulants or rate- controlling medications. Her only blood pressure medication is valsartan. Denies recent illness including fever, chest pain, difficulty breathing, cough or cold-type symptoms, abdominal pain, nausea, vomiting, bowel changes, urinary complaints, lower extremity edema or pain, skin rashes, known sick contacts or travel. Related Data Home Medications ?Medication ?Instructions ?Recorded ?Confirmed albuterol sulfate 2.5 mg/3 mL 2.5 mg inhalation Q4-6H PRN 07/20/21 01/24/25 (0.083 %) solution for nebulization multivitamin 1 tab PO DAILY 07/20/2101/09 Previous Rx's ?Medication ?Instructions ?Recorded clobetasol 0.05 % topical ointment 1 appl topical BEDT TACO #30 grams 06/24/23 albuterol sulfate 90 mcg/actuation 2 puff inhalation Q 6H PRN 08/14/24 aerosol inhaler shortness of breath or wheez ing #6.7 grams valsartan 80 mg tablet 80 mg PO DAILY #90 tabs 11/09 09/02 Humira(CF) Pen 40 mg/0.4 mL 40 mg (0.4 mL) subcut Q2W #2 ea 12/19/24 subcutaneous kit (adalimumab) omeprazole 20 mg capsule,delayed 20 mg PO DAILY #30 ca ps 01/02/25 release methocarbamol 500 mg tablet 1,000 mg (2 x 500 mg) PO Q ID #20 01/23/25 tabs Asmanex Twisthaler 110 2 inh PO BEDTIME #1 ea 01/28 mcg/actuation(30 doses) breath activated inhalr (mometasone) Allergies Allergy/AdvReac Type Severity Reaction Status Date / Time amoxicillin Allergy Intermediate Vomiting/di Verified 01/24/25 14:23 arrhea alendronate sodium (From AdvReac Intermediate Heartburn Verified 01/24/25 14:23 Fosamax) Review of Systems 2 Review of Systems: as per HPI, full review of systems performed and negative but for the above mentioned pertinent positives and negatives. 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 Osteoporosis Seropositive rheumatoid arthritis (~2011) Surgical History Hx of shoulder surgery Family History Family History Father HTN (hypertension) Diabetes Afib Lymphoma Paternal Grandmother Breast cancer Paternal Aunt Breast cancer Brother Ankylosing spondylitis Social History Social History Household Members Other:: lives alone with disable person, Housing: Apartment Are you a primary hearing healthcare practitioner to a significant other at home: No Do you presently have visiting nurse or other home services: No 75 years or older and lives alone: No Alcohol intake: current Alcohol intake frequency: holidays/special occasions only Alcohol type: wine Patient Tobacco Use Status: Former Tobacco user Years Smoked: (onset 14yo, 1ppd x 30yrs, 30pyh - quit 04/04/2010) e-Cigarette/Vaping Use: Never Used service: No Current occupational status: employed 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 SKIN: Normal skin color for ethnicity, warm, dry, no rashes noted. HEENT:? Normocephalic, atraumatic, no stridor, posterior oropharynx nonerythematous, dentition intact, EOMI. NECK: Soft, supple, full ROM, midline structures nontender, no step-offs, no deformities, no lymphadenopathy. CHEST: Heart regular rate and rhythm, no murmurs, symmetric chest rise and fall. PULMONARY: Clear to auscultation bilaterally, no labored breathing, no wheezes/rhales/rhonchi. ABDOMINAL: Soft, nondistended, nontender, positive bowel sounds in all quadrants. : Deferred. MUSCULOSKELETAL: Normal tone, full range of motion, no deformities, no peripheral edema. NEURO: Alert and oriented x3, CN II through XII intact, equal strength and sensation bilateral upper and lower extremities, no focal neurologic deficits.? PSYCHIATRIC: Normal affect, fluid speech, good eye contact and appropriate demeanor. Vital Signs: Vital Signs: Last Vital Signs Temp 98.4 F 01/23/25 07:17 Pulse 100 01/23/25 07:17 Resp 16 01/23/25 07:17 BP 125/85 01/23/25 07:17 Pulse Ox 95 01/23/25 07:17 O2 Del Method Room Air 01/23/25 07:17 BMI result Body Mass Index 32.8 Medical Decision Making Medical Decision Making MDM Narrative: Patient presents today with a chief complaint of dizziness. Differential diagnosis is extremely broad and includes posterior circulation deficits causing vestibular basilar symptoms, anemia, hypovolemia, middle or inner ear problems, intracranial abnormality such as stroke bleed or tumor, electrolyte abnormalities, cardiac arrhythmia, among many others. This patient does not have any focal neurological findings at this time. Patient has what appears to be an episode of SVT but had spontaneously converted prior to arrival in the emergency department. Her vital signs then she has been here have been rather normal and she states that she feels much better. Had been feeling sort of anxious tonight. Can not tell if the anxiety came before or after the episode of SVT. 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 I encouraged her to follow up with Cardiology and we had an extensive discussion regarding use of supplements as well as reasons for going into SVT. Using shared decision making, plan for discharge home to follow-up with primary care and/or specialist. Patient understands and agrees with plan for discharge. Discharged home in stable condition. Differential Diagnosis Differential Diagnoses: The differential diagnosis associated with the presentation includes (as above) Admission/Observation Consideration of admission/observation: Escalation of care including admission/observation considered Lab Data MDM Lab Attestation statement: I reviewed the patient's lab results. 01/23/25 03:50 01/23/25 03:50 Labs: Lab Results 01/23/25 Range/Units 03:50 WBC 9.1 (4.8-10.8) X10*3/uL RBC 4.55 (4.20-5.50) X10*6/uL Hgb 12.9 (12.0-16.0) g/dl Hct 39.3 (37.0-47.0) % MCV 86.4 (80.0-98.0) fL MCH 28.4 (27.0-33.0) pg MCHC 32.8 (31.0-35.0) g/dl RDW 13.1 (11.0-16.0) % Plt Count 284 (160-400) X10*3/uL MPV 9.9 (9.4-12.3) fL Immature Gran % (Auto) 0.2 (0.0-0.4) % Neut % (Auto) 42.0 L (45-73) % Lymph % (Auto) 43.1 H (20-40) % [place] % (Auto) 10.7 (2-11) % Eos % (Auto) 3.4 (0-4) % Baso % (Auto) 0.6 (0-2) % Lymph # (Auto) 3.9 (1.2-4.9) X10*3/uL [place] # (Auto) 1.0 (0.1-1.2) X10*3/uL Eos # (Auto) 0.3 (0.0-0.4) X10*3/uL Baso # (Auto) 0.1 (0.0-0.2) X10*3/uL Abs Immat Gran (auto) 0.02 (0.00-0.03) X10*3/uL Absolute Neuts (auto) 3.8 (2.0-8.3) x10*3/uL Absolute Nucleated RBC 0.000 (0.0-0.012) X10*3/uL Nucleated RBC % (auto) 0.0 (0.0-0.2) /100WBC Sodium 139 (135-145) mmol/L Potassium 4.0 (3.3-5.1) mmol/L Chloride 106 (96-108) mmol/L Carbon Dioxide 25 (22-29) mmol/L Anion Gap 12 (12-20) BUN 14 (9-16) mg/dL Creatinine 0.72 (0.5-1.4) mg/dL Estim Creat Clear Calc 86.3 Estimated GFR > 60 Random Glucose 113 (60-115) mg/dL Calcium 9.2 (8.4-10.2) mg/dL Magnesium 2.0 (1.6-2.6) mg/dL Total Bilirubin 0.3 (0.0-1.0) mg/dL AST 33 H (5-31) U/L ALT 35 H (0-31) U/L Alkaline Phosphatase 74 (39-117) U/L Troponin I High Sens < 2.7 (<3.5-17.0) ng/L Total Protein 7.6 (6.5-8.0) g/dL Albumin 4.2 (3.5-5.0) g/dL Independent Interpretation I performed an independent interpretation of an: EKG and Rhythm Strip Interpretation: SVT seen on EMS rhythm strip. No further episodes in the ED. Independent Historian Clinical information obtained from an independent historian. History obtained from or confirmed by: EMS External Record Review External record reviewed: Inpatient record Chronic Conditions Patient?s care impacted by: Other (PSVT, HTN RA) Discharge Plan Discharge Clinical Impression: Paroxysmal supraventricular tachycardia, Heart palpitations Patient Disposition: Home, Self-Care Instructions: Supraventricular Tachycardia (ED) Additional Instructions: Please follow-up with your primary care doctor as soon as possible. Return to the emergency department with any new or worsening symptoms including: Worsening palpitations, passing out, fevers greater than 100?, shortness of breath, any new symptom that concerns you. Call 911 with any medical emergency. Prescriptions: New methocarbamol 500 mg tablet 1,000 mg PO QID Qty: 20 0RF No Action valsartan 80 mg tablet 80 mg PO DAILY Qty: 90 1RF omeprazole 20 mg capsule,delayed release(DR/EC) 20 mg PO DAILY Qty: 30 0RF Asmanex Twisthaler 110 mcg/ actuation (30) aerosol powdr breath activated 2 inh PO BEDTIME Qty: 1 3RF clobetasol 0.05 % ointment 1 appl topical BEDTIME Qty: 30 0RF albuterol sulfate 2.5 mg /3 mL (0.083 %) solution for nebulization 2.5 mg inhalation Q4-6H PRN multivitamin Tablet 1 tab PO DAILY albuterol sulfate 90 mcg/actuation HFA aerosol inhaler 2 puff inhalation Q6H PRN (Reason: shortness of breath or wheezing) Qty: 6.7 1RF Humira(CF) Pen 40 mg/0.4 mL pen injector kit 40 mg subcut Q2W Qty: 2 5RF Interventions: ED Discharge Assessment Last Done: 01/23/25 07:17 Discharge Date/Time: 01/23/25 07:17 Print Language: Swedish
[2025-01-23 07:16] VITALS: BP 125/85; PULSE 100; RESP 16; TEMP 36.9; O2SAT 95
[2025-01-23 07:17] VITALS: BP 125/85; PULSE 100; RESP 16; TEMP 36.9; O2SAT 95
== END 2025-01-23 07:17 | disposition home or self-care (01) ==
PROVIDERS: Emergency Provider Emergency Medicine
DX: I47.10 Supraventricular tachycardia, unspecified (principal); I49.8 Other specified cardiac arrhythmias; R00.2 Palpitations; Z79.899 Other long term (current) drug therapy
CPT/HCPCS: 36415; 80053; 83735; 84484; 85025; 93005; 99283; 99284

== ENCOUNTER → 2025-01-23 03:36 | Outpatient (BNV) | payer OTHER, SELFPAY | PROVIDERS: Emergency Provider Emergency Medicine; Visit Provider Internal Medicine Cardiovascular Disease | DX: R00.0 Tachycardia, unspecified (principal) | CPT/HCPCS: 93010 ==

== ENCOUNTER 2025-01-24 13:55 | Outpatient (AMB) | payer OTHER, SELFPAY ==
--- OUTSIDE RECORDS SUMMARY | 2024-04-16 05:30 | XMS_ITS ---
Author Organization [facility] Address [address] [place] [id number] Care Team Providers Care Configuration Management Administrator Name Role Phone Rashmi LEIVA, Aure Primary Care Provider Ruth Garcia [phone] Encounters Encounter Location Date Provider Diagnosis [facility] [address] [place] [address] 04/16/2024 Ruth Le Plan Of Treatment No Information Progress Notes * Glenn MCCRARYOsminB:1965 ([age] yo F)Acc No.[id number]:04/16/2024 Progress Notes Patient: Ghislaine ESTEVEZ Provider: Christo Le DPM :1965 A ge:58 Y S ex:Female Date:04/16/2024 Address:[address] [place] [id number] Pcp:Aure Caraballo MD Subjective: * Chief Complaints: [...] 0 04/16/2024 Generated for Lito urrutia/Tricia/eTransmitting on: 05:45 PM EDT
--- NOTE | 2025-01-24 14:19 | A.OFFPC_ITS ---
Vital Signs 01/24/25 14:20 Height 5 ft 3 in Weight 178 lb BMI 31.5 BP 118/74 Blood Pressure Location Lt brachial Position Sitting Respiration 19 Pulse 98 Pulse Source Pulse Oximeter Temp 98.1 F Temp Source Oral Pulse Oximetry (%) 98 Oxygen Delivery Method Room Air Intake Visit Reasons: PE Intake Note: Pt is here today for PE. Allergies amoxicillin Allergy (Intermediate, Verified 01/24/25 14:23) Vomiting/diarrhea alendronate sodium (From Fosamax) Adverse Reaction (Intermediate, Verified 01/24/25 14:23) Heartburn Medication List - Last Reconciled 01/24/25 by Aure Caraballo MD albuterol sulfate 2.5 mg inhalation Q4-6H PRN albuterol sulfate 90 mcg/actuation 2 puffs inhalation Q6H PRN clobetasol 0.05% 1 appl topical BEDTIME Humira(CF) Pen (adalimumab) 40 mg (0.4 mL) subcut Q2W NS methocarbamol 1,000 mg (2 x 500 mg) PO QID multivitamin 1 tab PO DAILY omeprazole 20 mg PO DAILY valsartan 80 mg PO DAILY Tobacco use date assessed: 01/24/25 Dental Screening Dental Screen Date: 06/22/24 HPI PE HPI Details Pt presents for a physical. She was seen in the ER yesterday with the symptoms of palpitations lasted a few minutes after using albuterol inhaler. She was found to have sinus tachycardia on EKG and blood work was normal. She denies chest pain, shortness of breath associated with palpitations. Patient has similar episode a few years ago. 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 [facility] Medical History (Updated 01/24/25 @ 15:35 by Aure Caraballo MD) Colon cancer screening COPD (chronic obstructive pulmonary disease) Heart palpitations Chronic cough Annual physical exam Hypertension Acute respiratory disease Personal history of nicotine dependence Weight gain Trochanteric bursitis of right hip long-term current use of immunosuppressive drug Osteoporosis Seropositive rheumatoid arthritis (~2011) Surgical History Hx of shoulder surgery Family History Father HTN (hypertension) Diabetes Afib Lymphoma Paternal Grandmother Breast cancer Paternal Aunt Breast cancer Brother Ankylosing spondylitis Social History Household Members Other:: lives alone with disable person, Housing: Apartment Are you a primary resident care director to a significant other at home: No Do you presently have visiting nurse or other home services: No 75 years or older and lives alone: No Alcohol intake: current Alcohol intake frequency: holidays/special occasions only Alcohol type: wine Patient Tobacco Use Status: Former Tobacco user Years Smoked: (onset 14yo, 1ppd x 30yrs, 30pyh - quit 04/04/2010) e-Cigarette/Vaping Use: Never Used service: No Current occupational status: employed 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 1. Little interest or pleasure in doing things: not at all 2. Feeling down, depressed, or hopeless: not at all 3. Trouble falling or staying asleep, or sleeping too much: not at all 4. Feeling tired or having little energy: not at all 5. Poor appetite or overeating: not at all 6. Feeling bad about yourself - or that you are a failure or have let yourself or your family down: not at all 7. Trouble concentrating on things, such as reading the newspaper or watching television: not at all 8. Moving or speaking so slowly that other people could have noticed. Or the opposite - being so fidgety or restless that you have been moving around a lot more than usual: not at all 9. Thoughts that you would be better off or of hurting yourself in some way: not at all Total score: 0 Depression Screening Interpretation: Negative Depression Screening Done: Yes Source: Developed by Drs. Marv Westbrook, Lillian Boudreaux, Santos Andrews and colleagues, with an educational tawny from [employer]. Thrive Questionnaire Date Thrive assessed: 06/16/24 I am a: Patient What is your living situation today?: I have a steady place to live Within the past 12 months, did the food you bought not last and you didn't have the money to get more?: Never true Within the past 12 months, did you worry whether your food would run out before you got money to buy more?: Never true Do you have trouble paying for medicines?: No Do you have trouble getting transportation to medical appointments?: No Do you have trouble paying your heating and electricity bill?: No Do you have trouble taking care of your child, family member or friend?: No Do you have trouble with day-to-day activities such as bathing, preparing meals, shopping, managing finances, etc.?: No Are you currently unemployed and looking for a job?: No Are you interested in more education?: No Please select the resources that you would like help with: None Currently or been in a relationship where the following occur: No concerns reported THRIVE Score: 0 FERDA-7 AMB Questionnaire FREDA-7 Date FREDA - 7 assessed: 07/02/24 Feeling nervous, anxious, or on edge: 0 = Not at all Not being able to stop or control worryin = Not at all Worrying too much about different things: 0 = Not at all Trouble relaxin = Not at all Being so restless that it is hard to sit still: 0 = Not at all Becoming easily annoyed or irritable: 0 = Not at all Feeling afraid as if something awful might happen: 0 = Not at all Total FREDA-7 score (0-4 normal; 5-9 mild; 10-14 moderate; 15-21 severe): 0 Source: Developed by Drs. Marv Westbrook, Lillian Boudreaux, Santos Andrews and colleagues, with an educational tawny from [employer]. Review of Systems Const All systems reviewed & are unremarkable except as noted in HPI and below Eyes Reports no additional complaints ENT Reports no additional complaints Card Reports no additional complaints Resp Reports no additional complaints GI Reports no additional complaints Reports no additional complaints Physical exam (Primary Care) Vital Signs: Last Vital Signs Temp 98.1 F 01/24/25 14:20 Pulse 98 01/24/25 14:20 Resp 19 01/24/25 14:20 BP 118/74 01/24/25 14:20 Pulse Ox 98 01/24/25 14:20 Oxygen Delivery Method Room Air 01/24/25 14:20 BMI result Body Mass Index 31.5 Tobacco/Smoking Status: Tobacco use Status Tobacco use date assessed 01/24/25 01/24/25 14:26 Patient Tobacco Use Status Former Tobacco user 01/24/25 14:26 e-Cigarette/Vaping Use Never Used 01/24/25 14:26 PHQ-9: PHQ-9 Score PHQ-9: Total score 0 01/24/25 14:26 Depression Screening Interpretation: Negative Thrive Assessment: Date of Thrive Assessment Date Thrive assessed 06/16/24 01/24/25 14:26 Currently or been in a relationship where the following occur: No concerns reported Const General: no acute distress HENMT Head: Yes normal to inspection Ears: TM's normal bilaterally Face and sinus: Yes normal facial exam Throat: Yes posterior oropharynx normal Eyes General: appearance normal, both eyes and all related structures Neck Neck: Yes no lymphadenopathy and Yes supple Resp Effort & Inspection: normal respiratory effort Auscultation: clear to auscultation bilaterally Cardio Rhythm: regular rhythm Heart sounds: S1 normal heart sound present and S2 normal heart sound present GI Inspection: Yes normal to inspection Palpation (GI): Soft to palpation Percussion: Yes normal to percussion Auscultation: normal bowel sounds Coding Level of Care Code Est Pt Prev Care 40-64y(63293) Diagnoses Heart palpitations R00.2 Seropositive rheumatoid arthritis M05.9 Hypertension I10 Annual physical exam Z00.00 Hyperlipidemia E78.5 Assessment & Plan Assessment & Plan (1) Heart palpitations: Comment: Negative cardiac workup including Holter and echocardiogram 2022 Code(s): R00.2 - Palpitations Category: Medical Plan: Patient will continue to monitor for any recurrent symptoms Holter can be repeated if the symptoms persist (2) Seropositive rheumatoid arthritis: Onset Date: ~2011 Comment: Onset fall 2011++RF+++CCP Hand films show some x-ray changes July 2012. MTX started 08/21. Enbrel added 08/22. Enbrel changed to Humira 10/23 Code(s): M05.9 - Rheumatoid arthritis with rheumatoid factor, unspecified Category: Medical Plan: Follow-up with rheumatology (3) Hypertension: Code(s): I10 - Essential (primary) hypertension Category: Medical Plan: Continue valsartan (4) Annual physical exam: Code(s): Z00.00 - Encounter for general adult medical examination without abnormal findings Category: Medical Plan: Well-balanced diet regular physical activity discussed with the patient she is up-to-date with the mammogram. Patient had negative Cologuard in 2023, (5) Hyperlipidemia: Comment: Diet controlled patient refused statin Code(s): E78.5 - Hyperlipidemia, unspecified Category: Medical Plan: Low-cholesterol diet increase exercise weight loss discussed with the patient follow-up in 6 months with a fasting labs before Orders: Orders Lipid Panel 6 Months E78.5 - Hyperlipidemia, unspecified, I10 - Essential (primary) hypertension, M05.9 - Rheumatoid arthritis with rheumatoid factor, unspecified, Z00.00 - Encounter for general adult medical examination without abnormal findings Comprehensive [place]. Panel Fast 6 Months E78.5 - Hyperlipidemia, unspecified, I10 - Essential (primary) hypertension, M05.9 - Rheumatoid arthritis with rheumatoid factor, unspecified, Z00.00 - Encounter for general adult medical examination without abnormal findings Vitamin D 25-OH Total 6 Months E78.5 - Hyperlipidemia, unspecified, I10 - Essential (primary) hypertension, M05.9 - Rheumatoid arthritis with rheumatoid factor, unspecified, Z00.00 - Encounter for general adult medical examination without abnormal findings UA w Microscopic 6 Months E78.5 - Hyperlipidemia, unspecified, I10 - Essential (primary) hypertension, M05.9 - Rheumatoid arthritis with rheumatoid factor, unspecified, Z00.00 - Encounter for general adult medical examination without abnormal findings Medications: New Asmanex Twisthaler (mometasone) administer 1 hour before bedtime 2 inhalations inhalation DAILY 1 ea 0RF NS
[2025-01-24 14:20] VITALS: BP 118/74; PULSE 98; RESP 19; TEMP 36.7; O2SAT 98; BMI 31.5
--- OUTSIDE RECORDS SUMMARY | 2025-01-24 17:45 | XMS_ITS | Patient Health Record ---
Author Organization [facility] Address [address] [place] [address] Care Team Providers Care Forest Firefighter Name Role Phone Aure Caraballo MD Primary Care Provider Ruth Garcia Unavailable [phone] Reason For Referral No Information Encounters Encounter Location Date Provider Diagnosis [facility] [address] [place] [address] 02/21/2024 Ruth Le Plan Of Treatment No Information
== END 2025-01-24 15:36 | disposition home or self-care (01) ==
LOC: HO.HMCC 13:56
PROVIDERS: PCP Internal Medicine; Visit Provider Internal Medicine
DX: Z00.00 Encounter for general adult medical examination without abnormal findings (principal); R00.2 Palpitations; M05.9 Rheumatoid arthritis with rheumatoid factor, unspecified; I10 Essential (primary) hypertension; E78.5 Hyperlipidemia, unspecified

== ENCOUNTER → 2025-01-24 13:55 | Outpatient (BNVA) | payer OTHER, SELFPAY | PROVIDERS: PCP Internal Medicine; Visit Provider Internal Medicine | DX: Z00.00 Encounter for general adult medical examination without abnormal findings (principal); R00.2 Palpitations; M05.9 Rheumatoid arthritis with rheumatoid factor, unspecified; I10 Essential (primary) hypertension; E78.5 Hyperlipidemia, unspecified | CPT/HCPCS: 99396 ==

== ENCOUNTER 2025-02-06 14:27 | Outpatient (REF) | payer OTHER, SELFPAY ==
--- OUTSIDE RECORDS SUMMARY | 2024-04-16 05:30 | XMS_ITS ---
Author Organization [facility] Address [address] [place] [phone] Care Team Providers Care Sports Trainer Name Role Phone Rashmi LEIVA, Aure Primary Care Provider Ruth Garcia [phone] Encounters Encounter Location Date Provider Diagnosis [facility] [address] [place] [address] 04/16/2024 Ruth Le Plan Of Treatment No Information Progress Notes * Glenn MCCRARYOsminB:1965 ([age] yo F)Acc No.[id number]:04/16/2024 Progress Notes Patient: Ghislaine ESTEVEZ Provider: Christo Le DPM :1965 A ge:58 Y S ex:Female Date:04/16/2024 Address:[address] [place] [phone] Pcp:Aure Caraballo MD Subjective: * Chief Complaints: [...] DPM Date: 0 04/16/2024 Generated for Lito ng/Famarianag/eTransmitting on: 06:48 PM EDT
--- NOTE | ~2025-02-06 | MM_ITS ---
EXAMINATION: DXA BONE DENSITY AXIAL HISTORY: M81.0 - Age-related osteoporosis without current pathological fracture TECHNIQUE: [place] Dual energy absorptiometry (DEXA) of the lumbar spine, total left hip, and femoral neck was performed. COMPARISON: Comparison is made with the prior examination dated 10/29/2022. FINDINGS: The bone mineral density of the lumbar spine is 0.677 g/cm2, corresponding to a T-score of -4.2, and a Z-score of -3.5. This is indicative of osteoporosis. This represents a BMD change of 2.3% compared to the prior exam. This is not statistically significant. The bone mineral density of the left total hip is 0.819 g/cm2, corresponding to a T-score of -1.5, and a Z-score of -1.0. This is indicative of osteopenia. This represents a BMD change of 8.9% compared to the prior exam. This is statistically significant. The bone mineral density of the left femoral neck is 0.737 g/cm2, corresponding to a T-score of -2.2, and a Z-score of -1.3. This is indicative of osteopenia. This represents a BMD change of 16.8% compared to the prior exam. MM/XR DEXA axial skeleton IMPRESSION: Based on bone mineral density, and according to World Health Organization (WHO) criteria, the diagnosis is consistent with osteoporosis. Statistically, 68% of repeat scans fall within 1 SD (+/- 0.010 g/cm2 for AP spine L1-L4) and 1 SD (+/- 0.012 g/cm2 for femur total) FRAX is a trademark of the [employer] Metabolic [employer] Disease, a World Health Organization (WHO) Collaborating Center. Electronically signed by: Marv Cazares MD 02/06/2025 02:58 PM EDT
--- OUTSIDE RECORDS SUMMARY | 2025-02-06 18:48 | XMS_ITS | Patient Health Record ---
Author Organization [facility] Address [address] [place] [address] Care Team Providers Care Machinist/Machine Builder Name Role Phone Aure Caraballo MD Primary Care Provider Ruth Garcia Unavailable [phone] Reason For Referral No Information Encounters Encounter Location Date Provider Diagnosis [facility] [address] [place] [address] 02/21/2024 Ruth Le Plan Of Treatment No Information
--- OUTSIDE RECORDS SUMMARY | 2025-02-06 18:49 | XMS_ITS | Clinical Summary ---
Author Organization [address] [facility] Address [address] [place] [address] Phone Care Team Providers Care Bow Repairer Custom Name Role Phone Aure Caraballo MD Primary Care Provider [phone] Allergies Active Allergy Reactions Criticality Noted Date [...] We will try to get records from [facility]. History of COVID-19 12/01/2020 Overview [...] WHI. I discussed risks including cardiovascular disease- [place], DVT, stroke. 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 Rheumatoid factor, CCP Ab both markedly positive. Hand films show some x-ray changes July 2012.Methotrexate started 08/21. Enbrel added 08/22. Enbrel changed to Humira 10/23 IBS (irritable bowel syndrome) 10/24/2008 Idiopathic scoliosis and kyphoscoliosis 02/29/20 Overview (04/24/2024): mild Immunizations Immunization Administration Dates Next Due Hepatitis B (Vjulcng-H-Bxdok , Recombivax HB-Adult) 19yo and older 02/18/2005,05/29/2004,04/24/2004 [...] DX:Seropositive rheumatoid a rthritis of multiple sites ([facility]); COMMENT: Onset fall 2011. Rheumatoid factor, [...] Health Maintenance Due Date Last Done Comments RSV Immunization Adult Patients (1 - Risk 50-74 years 1-dose series) 09/26/2015 Zoster Vaccines (1 of 2) 09/26/2015 Pneumococcal Vaccine: 50+ Years (2 of 2 - PCV) 01/04/2016 01/03/2015 Cervical Cancer Screening: Pap Smear 11/01/2020 11/01/2017, 11/01/2017, 11/01/2017 Colorectal Cancer Screening: Stool Based Tests (FOBT/FIT) 03/20/2022 Social Influencers of Health Screening 03/20/2022 Depression Screening 04/11/2024 Breast Cancer Screening 07/14/2024 07/15/19 23, 12/10/2020, 12/06/2019, Additional history exists COVID-19 Vaccine ( season) 2024 01/22/2021, 06/11/2020, 05/21/2020 Influenza Vaccine (#1) 2024 , 12/31/2020, 01/01/2020, Additional history exists Cholesterol Screening [...] bstracted Blood Venous blood specimen / Unknown Result [facility] Historical Provider LAB BLOOD ORDERABLES Natali l Result * HIV Screening (11/01/2017) HIV Screening abstracted Result [facility] Historical Provider HEALTH MAINTENANCE Final Result * Hepatitis C Screening (11/01/2017) Hepatitis C Screening abstracted Historical Provider HEALTH MAINTENANCE Final Result * Pap smear (11/01/2017) 11/01/2017 Narrative HISTORICAL TESTING LAB RESULTING AGENCY - 11/04/2017 4:54 PM EDT [id number] THINPREP PAP, IMAGED: NEGATIVE FOR SQUAMOUS INTRAEPITHELIAL LESION AND MALIGNANCY . RESULT OF APTIMA HIGH RISK HPV ASSAY: NEGATIVE (SEROTYPES 16,18,31,33,35,39,45,51,52,56,58,59,66,68) PRADIP GUZMAN(ASCP) (CASE ELECTRONICALLY SIGNED 11 04 2017) ADEQUACY: SATISFACTORY. ENDOCERVICAL/TRANSFORMATION ZONE COMPONENT PRESENT. SOURCE: THINPREP PAP HPV ANY DX: REFLEX 16 AND 18, CERVICAL, IMAGED: CLINICAL INFORMATION: HPV ANY DIAGNOSIS. Z12.4, PAP HX: NEGATIVE Result [facility] Lara Vallejo MD LAB CYTOLOGY ORDERABLES Fin [...] be classified as having osteoporosis. [facility] Department of Internal Medicine recommends [...] should beclassified as having osteoporosis. The [facility] Department of Internal Medicine recommendsusing [...] Most Recently Relevant to Health Maintenance Insurance [facility] Care Teams Bow Repairer Custom Relationship Specialty Start Date End Date Aure Caraballo MD [address] [place] [id number] PCP - General Internal Medicine 03/06/24
== END 2025-02-06 14:28 | disposition home or self-care (01) ==
LOC: HO.MAMMO 14:27
PROVIDERS: Visit Provider Student in an Organized Health Care Education/Training Program
DX: M81.0 Age-related osteoporosis without current pathological fracture (principal)
CPT/HCPCS: 77080

== ENCOUNTER → 2025-02-06 14:30 | Outpatient (BNV) | payer OTHER, SELFPAY | PROVIDERS: Visit Provider Radiology Diagnostic Radiology | DX: E28.39 Other primary ovarian failure (principal) | CPT/HCPCS: 77080 ==

== ENCOUNTER 2025-02-13 12:28 | Outpatient (AMB) | payer OTHER, SELFPAY ==
--- OUTSIDE RECORDS SUMMARY | 2022-10-26 08:30 | XMS_ITS | Continuity of Care Document ---
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 [address] [facility], [address], [place], [place], [id number] , [place]. tel:[phone] Referring Provider: [facility] Reva, [address], [place], [address]. tel:[phone] Family History Family Member Type Diagnosis Age At Onset No Information Payers Payer name Insurance type Covered republican ID Authoriza tion(s) [facility] SCO CI [id number] Social History Type Description Quantity Date Captured [...]
--- OUTSIDE RECORDS SUMMARY | 2024-04-16 04:30 | XMS_ITS ---
Author Organization [facility] Address [address] [place] [address] Care Team Providers Care Superintendent Schools Name Role Phone Rashmi LEIVA, Aure Primary Care Provider Ruth Garcia [phone] Encounters Encounter Location Date Provider Diagnosis [facility] [address] [place] [address] 04/16/2024 Ruth Le Plan Of Treatment No Information Progress Notes * Glenn MCCRARYOsminB:1965 ([age] yo F)Acc No.[id number]:04/16/2024 Progress Notes Patient: Ghislaine ESTEVEZ Provider: Christo Le DPM :1965 A ge:58 Y S ex:Female Date:04/16/2024 Address:[address] [place] [phone] Pcp:Aure Caraballo MD Subjective: * Chief Complaints: * * Medical History: Objective: * Vitals: Assessment: Plan: * Treatment: * Images: * The named appointment provid er may or may not be the originator of this progress note, and it is not deemed complete until electronically signed by the appointment provider. Sign off status: Pending * Provider: Christo Le DPM Date: 0 04/16/2024 Generated for Lito urrutia/Tricia/Andressmitting on: 04/15/2024 03:07 PM EST
--- NOTE | 2025-02-13 12:33 | MHC.PC.OV ---
Vital Signs 02/13/25 12:36 Height 5 ft 3 in Weight 178 lb BMI 31.5 BP 122/80 Blood Pressure Location Lt brachial Position Sitting Respiration 16 Pulse 100 Pulse Source Pulse Oximeter Pulse Oximetry (%) 98 Oxygen Delivery Method Room Air Intake Visit Reasons: Rash on buttocks Rn Acute Dialysis Required: No Accompanied by: Self / Same As Patient Allergies amoxicillin Allergy (Intermediate, Verified 02/13/25 12:41) Vomiting/diarrhea alendronate sodium (From Fosamax) Adverse Reaction (Intermediate, Verified 02/13/25 12:41) Heartburn Medication List - Last Reconciled 02/13/25 by Aure Caraballo MD albuterol sulfate 2.5 mg inhalation Q4-6H PRN albuterol sulfate 90 mcg/actuation 2 puffs inhalation Q6H PRN Asmanex Twisthaler (mometasone) 2 inhalations PO BEDTIME NS clobetasol 0.05% 1 appl topical BEDTIME fluconazole 100 mg PO DAILY Humira(CF) Pen (adalimumab) 40 mg (0.4 mL) subcut Q2W NS ketoconazole 2% 1 appl topical BID methocarbamol 1,000 mg (2 x 500 mg) PO QID multivitamin 1 tab PO DAILY omeprazole 20 mg PO DAILY valsartan 80 mg PO DAILY Tobacco use date assessed: 02/13/25 Dental Screening Dental Screen Date: 02/13/25 Did you have a dental visit in the last 12 months?: Yes Did you have a dental problem in the last 6 months where you did not have access to dental care?: No Was dental information given to patient?: Patient has dentist HPI Rash on buttocks HPI Details Patient presents complaining of itchy rash around her anal area between the buttocks for a week. She complains of chronic diarrhea, having watery bowel movements up to twice a day usually after meals on and off for the last year. Patient denies abdominal pain, weight loss hematochezia fever chills. She has not noticed any correlation between her diet and her symptoms, but has been more vegetables Patient has been feeling a bump at the anal area not tender on and off. 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 Osteoporosis Seropositive rheumatoid arthritis (~2011) Surgical History Hx of shoulder surgery Family History Father HTN (hypertension) Diabetes Afib Lymphoma Paternal Grandmother Breast cancer Paternal Aunt Breast cancer Brother Ankylosing spondylitis Social History Household Members Other:: lives alone with disable person, Housing: Apartment Are you a primary career technical education teacher to a significant other at home: No Do you presently have visiting nurse or other home services: No 75 years or older and lives alone: No Alcohol intake: current Alcohol intake frequency: holidays/special occasions only Alcohol type: wine Patient Tobacco Use Status: Former Tobacco user Years Smoked: (onset 14yo, 1ppd x 30yrs, 30pyh - quit 04/04/2010) e-Cigarette/Vaping Use: Never Used service: No Current occupational status: employed 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 Cognitive needs: No Hearing needs: No Vision needs: Yes Questionnaire Thrive Questionnaire Date Thrive assessed: 06/16/24 I am a: Patient What is your living situation today?: I have a steady place to live Within the past 12 months, did the food you bought not last and you didn't have the money to get more?: Never true Within the past 12 months, did you worry whether your food would run out before you got money to buy more?: Never true Do you have trouble paying for medicines?: No Do you have trouble getting transportation to medical appointments?: No Do you have trouble paying your heating and electricity bill?: No Do you have trouble taking care of your child, family member or friend?: No Do you have trouble with day-to-day activities such as bathing, preparing meals, shopping, managing finances, etc.?: No Are you currently unemployed and looking for a job?: No Are you interested in more education?: No Please select the resources that you would like help with: None Currently or been in a relationship where the following occur: No concerns reported THRIVE Score: 0 FREDA-7 AMB Questionnaire FREDA-7 Date FREDA - 7 assessed: 07/02/24 Source: Developed by Drs. Marv Westbrook, Lillian Boudreaux, Santos Andrews and colleagues, with an educational tawny from [employer]. Review of Systems Const All systems reviewed & are unremarkable except as noted in HPI and below Eyes Reports no additional complaints ENT Reports no additional complaints Card Reports no additional complaints Resp Reports no additional complaints GI Reports no additional complaints Physical exam (Primary Care) Vital Signs: Last Vital Signs Pulse 100 02/13/25 12:36 Resp 16 02/13/25 12:36 BP 122/80 02/13/25 12:36 Pulse Ox 98 02/13/25 12:36 Oxygen Delivery Method Room Air 02/13/25 12:36 BMI result Body Mass Index 31.5 Tobacco/Smoking Status: Tobacco use Status Tobacco use date assessed 02/13/25 02/13/25 12:42 Patient Tobacco Use Status Former Tobacco user 02/13/25 12:34 e-Cigarette/Vaping Use Never Used 02/13/25 12:34 Thrive Assessment: Date of Thrive Assessment Date Thrive assessed 06/16/24 02/13/25 12:34 Currently or been in a relationship where the following occur: No concerns reported Const General: no acute distress HENMT Head: Yes normal to inspection Resp Effort & Inspection: normal respiratory effort Auscultation: clear to auscultation bilaterally Cardio Rhythm: regular rhythm Heart sounds: S1 normal heart sound present and S2 normal heart sound present GI Inspection: Yes normal to inspection Palpation (GI): Soft to palpation Percussion: Yes normal to percussion Auscultation: normal bowel sounds Rectal Exam - Female: normal sphincter tone and Excoriation present (GI) (Erythema in perianal area) Coding Level of Care Code Est Pt Level 4 (34941) Diagnoses Diarrhea R19.7 Candidiasis of anus B37.89 Assessment & Plan Assessment & Plan (1) Diarrhea: Comment: chronic Code(s): R19.7 - Diarrhea, unspecified Category: Medical Plan: For chronic diarrhea obtain stool studies and referred to assembler production line for colonoscopy. Patient was advised to avoid dairy fresh fruits vegetables and start taking probiotics (2) Candidiasis of anus: Code(s): B37.89 - Other sites of candidiasis Category: Medical Plan: Diflucan and ketoconazole cream areprescribed. Supportive care including keeping area dry and clean discussed with the patient Orders: Orders Leukocytes Stool Qualitative Today R19.7 - Diarrhea, unspecified GI Panel Today R19.7 - Diarrhea, unspecified Ova and Parasite Today R19.7 - Diarrhea, unspecified Referrals Gastroenterology Referral R19.7 - Diarrhea, unspecified Medications: New fluconazole 100 mg PO DAILY 7 tabs 0RF ketoconazole 2% 1 appl topical BID 30 grams 0RF
[2025-02-13 12:36] VITALS: BP 122/80; PULSE 100; RESP 16; O2SAT 98; BMI 31.5
--- OUTSIDE RECORDS SUMMARY | 2025-02-13 15:07 | XMS_ITS | Patient Health Record ---
Author Organization [facility] Address [address] [place] [address] Care Team Providers Care Implementation Engineer Name Role Phone Aure Caraballo MD Primary Care Provider Ruth Garcia Unavailable [phone] Reason For Referral No Information Encounters Encounter Location Date Provider Diagnosis [facility] [address] [place] [address] 02/21/2024 Ruth Le Plan Of Treatment No Information
== END 2025-02-13 13:07 | disposition home or self-care (01) ==
LOC: HO.HMCC 12:29
PROVIDERS: Visit Provider Internal Medicine
DX: R19.7 Diarrhea, unspecified (principal); B37.89 Other sites of candidiasis

== ENCOUNTER → 2025-02-13 12:28 | Outpatient (BNVA) | payer OTHER, SELFPAY | PROVIDERS: Visit Provider Internal Medicine | DX: I10 Essential (primary) hypertension (principal); K52.9 Noninfective gastroenteritis and colitis, unspecified; B37.89 Other sites of candidiasis | CPT/HCPCS: 99212 ==

== ENCOUNTER 2025-03-06 13:11 | Outpatient (AMB) | payer OTHER, SELFPAY ==
--- OUTSIDE RECORDS SUMMARY | 2022-10-26 08:30 | XMS_ITS | Continuity of Care Document ---
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 Name Role Phone Briana Durán NP Unavailable Unavailab le Allergies, Adverse Reactions, Alerts Substance Reaction Status Criticality No Known Allergies Active No Inform ation Medications Medication Instructions Dosage Effective Dates (start - stop) Status Comments Humira 40 mg/0.8 mL subcutaneous syringe kit - Active Procedures Procedure Date No Charge For Services Advance Directives Directive Yes / No Effective Date File Name No Information Encounters Encounter Description Practice Location Reason(s) For Visit Diagnoses Date Provider Providers Copied on Encounter [facility], [address] [place] [address] [address], [place], [id number], [place] tel:[phone] CVR - [place] - [place] [facility] - (Telangiect denise) [address] . [address] [facility], [address], [place], [place], [id number] , [place]. tel:[phone] Referring Provider: [facility] Reva, [address], [place], [address]. tel:[phone] Family History Family Member Type Diagnosis Age At Onset No Information Payers Payer name Insurance type Covered green party ID Authoriza tion(s) [facility] SCO CI [id number] Social History Type Description Quantity Date Captured Comments Alcohol Use Details Caffeine Use Details Unknown Tobacco Use Status Ex-cigarette smoker 023 Smoking Status Former smoker Smoking Tobacco Use Details Cigarette: Age Stopped: 40 Cigarette: No Details Available Sex Female Chief Complaint And Reason For Visit No Information Reason For Referral Reason For Referral No Information History Of Present Illness Encounter Date Complaint History Of Prese nt Illness No Information Functional Status Date Functional Assessmen t No Information Instructions Date Instruction Additional Infor mation No Information Assessments Type Assessment Date assessment [facility] - (Telangiectasia) Patient Care Teams Name Effective Dates (start - stop) Status Members No Information
--- NOTE | 2025-03-06 13:19 | A.OFFVIS_ITS ---
Vital Signs 03/06/25 13:25 Height 5 ft 3 in Weight 180 lb 12.465 oz BMI 32.0 BP 134/100 H Blood Pressure Location Lt brachial Position Sitting Pulse 103 H Pulse Source Pulse Oximeter Pulse Oximetry (%) 97 Oxygen Delivery Method Room Air Intake Visit Reasons: RA Intake Note: Patient presents for RA follow up. Allergies amoxicillin Allergy (Intermediate, Verified 03/06/25 13:25) Vomiting/diarrhea alendronate sodium (From Fosamax) Adverse Reaction (Intermediate, Verified 03/06/25 13:25) Heartburn Medication List - Last Reconciled 03/06/25 by Nichol Webb MD albuterol sulfate 2.5 mg inhalation Q4-6H PRN albuterol sulfate 90 mcg/actuation 2 puffs inhalation Q6H PRN Asmanex Twisthaler (mometasone) 2 inhalations PO BEDTIME NS clobetasol 0.05% 1 appl topical BEDTIME fluconazole 100 mg PO DAILY Humira(CF) Pen (adalimumab) 40 mg (0.4 mL) subcut Q2W NS ketoconazole 2% 1 appl topical BID methocarbamol 1,000 mg (2 x 500 mg) PO QID multivitamin 1 tab PO DAILY omeprazole 20 mg PO DAILY Qvar RediHaler 80 mcg/actuation (beclomethasone dipropionate) 1 inh inhalation BID NS valsartan 80 mg PO DAILY HPI Comments Details: Patient is a 59 year old female with asthma, GERD, hypertension, osteoporosis, and seropositive rheumatoid arthritis here today for follow up Interval History: Patient last seen 12/19/24with ok - She self discontinued her Humira because she felt she was in remission and was doing well for 6 months but then had a significant flare of her disease and required a prednisone taper - Restarted Humira 40mg SC every 2 weeks - Improved disease activity Today - On Humira 40mg SC every 2 weeks, IV Reclast 5mg yearly - Humira treatment has been every two weeks; however, the patient reports worsening morning symptoms, specifically in the neck and knee, over four months. - Treatment gaps include a one-day delay in dosing and a six-month discontinuation last year. - Similar initial symptoms of rheumatoid arthritis are reported, with increased ache severity. - Psychological side effects were noted after receiving a high-dose corticosteroid prescription during an acute episode handled outside regular care. Rheumatologic History: Onset fall 2011++RF+++CCP Hand films show some x-ray changes July 2012. MTX started 08/21. Enbrel added 08/22. 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 Osteoporosis Seropositive rheumatoid arthritis (~2011) Surgical History Hx of shoulder surgery Family History Father HTN (hypertension) Diabetes Afib Lymphoma Paternal Grandmother Breast cancer Paternal Aunt Breast cancer Brother Ankylosing spondylitis Social History Household Members Other:: lives alone with disable person, Housing: Apartment Are you a primary day care center director to a significant other at home: No Do you presently have visiting nurse or other home services: No 75 years or older and lives alone: No Alcohol intake: current Alcohol intake frequency: holidays/special occasions only Alcohol type: wine Patient Tobacco Use Status: Former Tobacco user Years Smoked: (onset 14yo, 1ppd x 30yrs, 30pyh - quit 04/04/2010) e-Cigarette/Vaping Use: Never Used service: No Current occupational status: employed 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 - Neurological: Reports adverse effects from high-dose steroids, including mood alterations. - Endocrine: Reports having osteoporosis with increased risk of fractures. All other systems reviewed and are unremarkable except noted above Physical Exam Exam Exam: Vital signs reviewed Physical Examination CONSTITUITIONAL Patient alert and cooperative. Well appearing and in no apparent painful distress MSK Hands * Right Hand: Able to make a fist. No swelling or tenderness to palpation of the MCPs, PIPs or DIPs. * Left Hand: Able to make a fist. No swelling or tenderness to palpation of the MCPs, PIPs or DIPs. Wrists * Right Wrist: Full ROM to flexion and extension. No swelling or TTP * Left Wrist: Full ROM to flexion and extension. No swelling or TTP Elbows * Right Elbow: Full ROM. No swelling or TTP. No TTP of the medial epicondyle. No TTP of the lateral epicondyle * Left Elbow: Full ROM. No swelling or TTP. No TTP of the medial epicondyle. No TTP of the lateral epicondyle Shoulders * Right shoulder: Full ROM. No swelling noted. No TTP of the AC joint. No TTP of the subacromial bursa. No TTP of the posterior shoulder * Left shoulder: Full ROM. No swelling noted. No TTP of the AC joint. No TTP of the subacromial bursa. No TTP of the posterior shoulder Knees * Right knee: Full ROM. No swelling noted. No TTP of the knee joint line. No TTP of pes anserine bursa * Left knee: Full ROM. No swelling noted. No TTP of the knee joint line. No TTP of pes anserine bursa. Ankles * Right ankle: Good ankle dorsiflexion and plantar flexion. No swelling. No TTP of the ankle joint * Left ankle: Good ankle dorsiflexion and plantar flexion. No swelling. TTP of the ankle joint Feet * Right foot: Negative squeeze test * Left foot: Negative squeeze test Tender points? * No tenderness to palpation of the bilateral trapezius, supraspinatus, anterior costochondral junctions, bilateral suboccipital muscle insertions SKIN No rashes Vital Signs: Last Vital Signs Pulse 103 H 03/06/25 13:25 BP 134/100 H 03/06/25 13:25 Pulse Ox 97 03/06/25 13:25 Oxygen Delivery Method Room Air 03/06/25 13:25 BMI result Body Mass Index 32.0 Results Reviewed Results Reviewed: Laboratory Tests 12/19/24 01/23/25 11:24 03:50 WBC 9.1 RBC 4.55 Hgb 12.9 Hct 39.3 Plt Count 284 ESR 10 Sodium 139 Potassium 4.0 Chloride 106 Carbon Dioxide 25 BUN 14 Creatinine 0.72 AST 33 H ALT 35 H C-Reactive Protein 0.12 Laboratory Tests 12/19/24 11:24 Hepatitis A IgM Ab Nonreactive Hep Bs Antigen Negative Hep Bs Antibody REACTIVE Hep B Core Total Ab Nonreactive Hepatitis C Ab (EIA) Nonreactive TB Test (T-Spot) Com Negative DEXA 01/2025 FINDINGS: The bone mineral density of the lumbar spine is 0.677 g/cm2, corresponding to a T-score of -4.2, and a Z-score of -3.5. This is indicative of osteoporosis. This represents a BMD change of 2.3% compared to the prior exam. This is not statistically significant. The bone mineral density of the left total hip is 0.819 g/cm2, corresponding to a T-score of -1.5, and a Z-score of -1.0. This is indicative of osteopenia. This represents a BMD change of 8.9% compared to the prior exam. This is statistically significant. The bone mineral density of the left femoral neck is 0.737 g/cm2, corresponding to a T-score of -2.2, and a Z-score of -1.3. This is indicative of osteopenia. This represents a BMD change of 16.8% compared to the prior exam. Assessment & Plan Assessment & Plan (1) Seropositive rheumatoid arthritis: Onset Date: ~2011 Comment: Onset fall 2011++RF+++CCP Hand films show some x-ray changes July 2012. MTX started 08/21. Enbrel added 08/22. Enbrel changed to Humira 10/23 Code(s): M05.9 - Rheumatoid arthritis with rheumatoid factor, unspecified Category: Medical Plan: #Seropositive RA Patient is a 59-year-old female with seropositive rheumatoid arthritis here today for follow up. Patient reported increased achiness on Humira. No evidence of active synovitis on exam today but this could be because she had high-dose steroids given to her over the weekend by urgent Care. We will increase the frequency of Humira to see if there is efficacy with this. Short course of steroids Plan - Humira 40mg SC every week - Prednisone: Take 15mg for 10 days then 10mg for 10 days then 5mg for 10 days and stop - Labs today: CBC. CMP, ESR, CRP - RTC 4 months - Labs before visit: CBC, CMP, ESR, CRP (2) Osteoporosis: Comment: DEXA 10/2022: AP Spine -4.3, Left femur neck -2.9, Left femur total -2.0 DEXA 01/2025: AP Spine -4.2, Left femur neck -2.2, Left femur total -1.5 IV Reclast x 1 dose, pt declined treatment and repeat DEXA 2023 Code(s): M81.0 - Age-related osteoporosis without current pathological fracture Category: Medical Qualifiers: Osteoporosis type: age-related Presence of current pathological fracture: without current pathological fracture Qualified Code(s): M81.0 - Age- related osteoporosis without current pathological fracture Plan: #Osteoporosis Patient with severe osteoporosis of the spine status post 1 dose of IV Reclast back in 2022. Still with significant osteoporosis, slightly improved likely after 1 dose of Reclast Restarted medication Plan - IV Reclast 5mg yearly - VIt D at next blood draw (3) Encounter for monitoring of adalimumab therapy: Code(s): Z51.81 - Encounter for therapeutic drug level monitoring; Z79.620 - group home (current) use of immunosuppressive biologic Plan: #Long-term Use of TNF Inhibitors: Humira Discussed with the patient the benefits and risks of TNF inhibitors for the management of the rheumatic condition Benefits include reduce pain, maintenance of remission and reduction of flares as well as progression of the disease Risks include injection sites/infusion reactions, serious infections (such as bacterial infections, opportunistic infections), malignancy, delaminating syndromes, autoimmune phenomena, CHF exacerbations, palmar plantar psoriasis and cytopenias Recommended rotating injection sites, and holding medication during and for up to 1 week after resolution of a febrile illness or open skin wound (4) Encounter for ongoing osteoporosis therapy, bisphosphonates: Code(s): M81.0 - Age-related osteoporosis without current pathological fracture; Z79.83 - 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 (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) use of bisphosphonates Plan: #Long-term Use of Bisphosphonates Risks and benefits of bisphosphonates in the management of osteoporosis Benefits include improved bone density, decreased fracture risk Risks include atypical femoral fractures, GI upset, esophageal strictures Contraindicated in patients with a creatinine clearance < 30 to 35 ml/min Keep vitamin-D at least 35 ng/mL Plan I spent 35 minutes reviewing the record and labs, taking a history, examining the patient, discussing the treatment plan, ordering diagnostic work up and documenting in the medical record Orders: Orders Complete Blood Count Auto Diff 4 Months Z79.899 - Other long-term (current) drug therapy Comprehensive Met. Panel 4 Months Z79.89 - Other long-term (current) drug therapy Complete Blood Count Auto Diff Today Z79.89 - Other long-term (current) drug therapy Comprehensive Met. Panel Today Z79. 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 (current) drug therapy Erythrocyte Sedimentation Rate Today Z79.89 - Other long-term (current) drug therapy Vitamin D 25-OH Total 4 Months E55.9 - Vitamin D deficiency, unspecified Medications: New prednisone 15 mg orally for 10 days; 10mg orally for 10 days; 5mg orally for 10 days 60 tabs 0RF Changed From Humira(CF) Pen (adalimumab) 40 mg (0.4 mL) subcut Q2W 2 ea 5RF NS M05.9 - Rheumatoid arthritis with rheumatoid factor, unspecified To Humira(CF) Pen (adalimumab) 40 mg (0.4 mL) subcut QWEEK 4 ea 5RF NS M05.9 - Rheumatoid arthritis with rheumatoid factor, unspecified Coding Level of Care Code Est Pt Level 4 (34181) Complex visit Add On G2211 Diagnoses Seropositive rheumatoid arthritis M05.9 Age-related osteoporosis without current pathological fracture M81.0 Osteoporosis type: age-related Presence of current pathological fracture: without current pathological fracture Encounter for monitoring of adalimumab therapy Z51.81; Z79.620 Encounter for ongoing osteoporosis therapy, bisphosphonates M81.0; Z79.83
[2025-03-06 13:25] VITALS: BP 134/100; PULSE 103; O2SAT 97; BMI 32.0
--- OUTSIDE RECORDS SUMMARY | 2025-03-06 16:18 | XMS_ITS | Continuity of Care Document ---
Author Organization [place] - [facility], [facility] Address [address] [place] [address] Assessment Encounter Date Assessment Date Assessment LastModified by Organization Details LastModified Time 02/14/2025 02/14/2025 Follow up with referring provider. [email or web address] Not available 02/14/2025 14:05:02 Plan of Treatment Reminders Order Date Submit Date Provider Last Modified By Organization Details Last Modified Time Details Appointments None record ed. Lab None record ed. Referral None record ed. Procedures None record ed. Surgeries None record ed. Imaging None record ed. Medication Orders None record ed. Patient TargetsNo targets recorded. Patient InstructionsNo instructions recorded. Reason for Referral None Reported. Results Created Date Observation Date Name Description Value Unit Range Abnormal Flag Note LastModifiedBy Organization Detail LastModifiedTime 02/15/20 25 audio gram No observ ation record ed. BARCODE Not Available 2024 16:26:40 Result Notes None recorded. Problems Name Problem SNOMED Code Status Onset Date Resolution Date Notes Provider Name and Address Organization Details Recorded Time Sensorineural hearing loss of bilateral ears 765017420 Active 2024 Trista PLUMMER 100 [facility],[address], [address], [place] [facility] 14:05:22 Problem Notes None recorded. Procedures Surgical History Date Name Laterality Status Provider Name and Address Organization Details Recorded Time 02/14/2025 Comp Audio with Tymps - 24530 & 42491 completed Trista PLUMMER 100 [facility],[address], [address] 02/14/2025 14:05:02 Imaging Results None recorded. Procedure Notes None recorded. Medical Equipment None Reported. Medications Name Sig Start Date Stop Date Status Note LastModified by Organization Details LastModified Time fluconazole 100 mg tablet TAKE 1 TABLET BY MOUTH ONCE DAILY active Not Available Not Available No t Available prednisone 10 mg tablet TAKE 4 TABLETS BY MOUTH DAILY FOR 3 DAYS, 3 TABS DAILY X 3, 2 TABS DAILY X 3, 1 TAB DAILY X 3 active Not Available Not Available No t Available valacyclovi r 1 gram tablet TAKE 1 TABLET BY MOUTH EVERY 8 HOURS active Not Available Not Available No t Available valsartan 80 mg tablet TAKE 1 TABLET BY MOUTH ONCE DAILY active Not Available Not Available No t Available prednisolon e acetate 1 % eye drops,suspe nsion SHAKE LIQUID AND INSTILL 1 DROP IN BOTH EYES THREE TIMES DAILY active Not Available Not Available No t Available omeprazole 20 mg capsule,del ayed release TAKE 1 CAPSULE BY MOUTH ONCE DAILY active Not Available Not Available No t Available levofloxaci n 500 mg tablet TAKE 1 TABLET BY MOUTH DAILY 01/01 completed Not Available Not Available Not Available albuterol sulfate HFA 90 mcg/actuati on aerosol inhaler INHALE 2 PUFFS BY MOUTH EVERY 6 HOURS NEEDED FOR SHORTNESS OF BREATH OR WHEEZING active Not Available Not Available No t Available ketoconazol e 2 % topical cream APPLY 1 APPLICATI ON OF CREAM TOPICALLY TWICE DAILY active Not Available Not Available No t Available Vitals None Recorded Social History None recorded. Functional Status None recorded. Mental Status None recorded. Family History Nothing Reported. Medical History No medical history recorded. Gynecological HistoryNo gynecological history recorded. Obstetrics History GPAL:G 0 P 0 0 0 0 Past Encounters Encounter ID Performer Location Encounter Start Date Encounter Closed Date Diagnosis/Indication Diagnosis SNOMED-CT Code Diagnosis ICD10 Code Diagnosis IMO Codes Diagnosis Note [id number] Trista PLUMMER [facility] of [address] [address] 02/14/2025 14:04:40 02/15/2025 16:00:56 Sensorineural hearing loss of bilateral ears 401601214 H90.3 [id number] Audiologic al evaluation results:Ri ght ear:Modera te high frequency with excellent word recognitio n.Left ear:Modera te high frequency with excellent word recognitio n. Tympanomet ry:Right Ear:Type ALeft Ear:Type A Health Concerns Section Related Observation LastModified by Organization Detai ls LastModified Time None Recorded Concern Status LastModified by Organization Details LastModified Time None Recorded Payers Encounter Date Sequence Insurance Name Policy Number Policy Saldaña Covered Member ID Saldaña Member ID Guarantor Name 02/14/2025 1 [facility] [employer] - DIRECT CONNECTORCARE TYPE I (HMO) [id number] Ghislaine Rodriguez [id number] Ghislaine Rodriguez Notes Date Note Type Note Provider Name and Address Organization Details Recorded Time 02/14/2025 text/html Audiological Evaluation HPIReported by PatientHearing LossFor hearing loss perceived, patient reportshearing loss in both ears (no differences noted between ears). JOSE SOLIS, [address],[place] [address], [place], [address], [facility] - [facility] 02/14/2025 14:07:19 OBGyn Episode No OBEpisode recorded.
--- OUTSIDE RECORDS SUMMARY | 2025-03-06 16:18 | XMS_ITS | Data Portability ---
Author Organization [place] - [facility], Allergy Address [address] [address] Assessment Encounter Date Assessment Date Assessment LastModified by Organization Details LastModified Time 02/14/2025 02/14/2025 Follow up with referring provider. Not available 02/14/2025 14:05:02 Plan of Treatment [...] Time Sensorineural hearing loss of bilateral ears [id number] Active 2024 Trista PLUMMER 100 [facility] [address], [place], [address], [place] - [facility] 14:05:22 Problem Notes None recorded. Procedures Surgical History Date Name Laterality Status Provider Name and Address Organization Details Recorded Time 02/14/2025 Comp Audio with Tymps - 84957 & 42453 completed Trista PLUMMER 100 [facility], [place], [address], [place] - [facility] 02/14/2025 14:05:02 Imaging Results None recorded. Procedure [...] ICD10 Code Diagnosis IMO Codes Diagnosis Note [id number] Trista PLUMMER [facility] of [address] [address] 02/14/2025 14:04:40 02/15/2025 16:00:56 Sensorineural hearing loss of bilateral ears 785228610 H90.3 [id number] Audiologic al evaluation results:Ri ght ear:Modera te high frequency with excellent word recognitio n.Left ear:Modera te high frequency with excellent word recognitio n. Tympanomet ry:Right Ear:Type ALeft Ear:Type A Health Concerns Section Related Observation LastModified by Organization Detai ls LastModified Time None Recorded Concern Status LastModified by Organization Details LastModified Time None Recorded Advance Directives Directive None Recorded Payers Insurance Date Sequence Insurance Name Policy Number Policy Saldaña Covered Member ID Saldaña Member ID Guarantor Name 02/12/2025 1 [facility] (O) [id number] Ghislaine D Jennifer [id number] 1 Ghislaine D Jennifer 02/14/2025 1 [facility] (HMO) [id number] Ghislaine D Jennifer [id number] 1 Ghislaine D Jennifer 02/14/2025 1 [facility] (O) [id number] Ghislaine D Jennifer [id number] 1 Ghislaine D Jennifer 02/20/2025 1 [facility] - DIRECT CONNECTORCARE TYPE I (HMO) [id number] Ghislaine D Jennifer [id number] 1 Ghislaine D Jennifer Notes Date Note Type Note Provider Name and Address Organization Details Recorded Time 02/14/2025 text/html Audiological Evaluation HPIReported by PatientHearing LossFor hearing loss perceived, patient reportshearing loss in both ears (no differences noted between ears). JOSE SOLIS, [facility] 100 [facility],[place] [address], [place], [address], [facility] - [facility] 02/14/2025 14:07:19 OBGyn Episode No OBEpisode recorded.
== END 2025-03-06 14:14 | disposition home or self-care (01) ==
LOC: HO.RHES 13:11
PROVIDERS: PCP Internal Medicine; Visit Provider Student in an Organized Health Care Education/Training Program
DX: M05.9 Rheumatoid arthritis with rheumatoid factor, unspecified (principal); M81.0 Age-related osteoporosis without current pathological fracture; Z51.81 Encounter for therapeutic drug level monitoring; Z79.620 Long term (current) use of immunosuppressive biologic; Z79.83 Long term (current) use of bisphosphonates
CPT/HCPCS: 99214

== ENCOUNTER 2025-03-06 13:11 | Outpatient (REF) | payer OTHER, SELFPAY ==
[2025-03-06 18:00] LABS: MANUAL DIFF FLAG NO
[2025-03-06 18:04] LABS: Hematocrit 39.7 % (37.0-47.0); Hemoglobin 12.9 g/dl (12.0-16.0); Imm Gran Abs Auto 0.02 X10*3/uL (0.00-0.03); Imm Gran Pct Auto 0.2 % (0.0-0.4); Lymphocytes Absolute Auto 3.6 X10*3/uL (1.2-4.9); Mean Corpuscular HGB Conc 32.5 g/dl (31.0-35.0); Mean Corpuscular Hemoglobin 28.2 pg (27.0-33.0); Mean Corpuscular Volume 86.9 fL (80.0-98.0); NRBC Abs Auto 0.000 X10*3/uL (0.0-0.012); NRBC Pct Auto 0.0 /100WBC (0.0-0.2); Platelet Count 306 X10*3/uL (160-400); Red Blood Count 4.57 X10*6/uL (4.20-5.50); White Blood Count 8.1 X10*3/uL (4.8-10.8)
[2025-03-06 18:33] LABS: Alanine Aminotransferase 41 U/L (0-31); Albumin Level 4.2 g/dL (3.5-5.0); Alkaline Phosphatase 79 U/L (39-117); Anion Gap 10 (12-20); Aspartate Amino Transferase 37 U/L (5-31); Blood Urea Nitrogen 8 mg/dL (9-16); Calcium 9.0 mg/dL (8.4-10.2); Carbon Dioxide 26 mmol/L (22-29); Chloride 107 mmol/L (96-108); Estimated Glomerular Filt Rate > 60; Potassium 4.6 mmol/L (3.3-5.1); Sodium 138 mmol/L (135-145); Total Protein 7.8 g/dL (6.5-8.0)
[2025-03-06 19:02] LABS: Erythrocyte Sedimentation Rate 28 MM/HR (0-20)
== END 2025-03-06 13:12 | disposition home or self-care (01) ==
LOC: HO.HKASLDS 13:11
PROVIDERS: PCP Internal Medicine; Visit Provider Student in an Organized Health Care Education/Training Program
DX: Z51.81 Encounter for therapeutic drug level monitoring (principal); M05.9 Rheumatoid arthritis with rheumatoid factor, unspecified; M81.0 Age-related osteoporosis without current pathological fracture; Z79.620 Long term (current) use of immunosuppressive biologic; Z79.83 Long term (current) use of bisphosphonates; Z79.899 Other long term (current) drug therapy
CPT/HCPCS: 36415; 80053; 85025; 85652; 86140; 99212

== ENCOUNTER 2025-03-12 11:39 | Outpatient (REF) | payer OTHER, SELFPAY ==
--- OUTSIDE RECORDS SUMMARY | 2025-03-12 13:52 | XMS_ITS | Clinical Summary ---
Author Organization [address] [facility] Address [address] [place] [address] Phone Care Team Providers Care Research Associate Name Role Phone Aure Caraballo MD Primary Care Provider [phone] Allergies Active Allergy Reactions Criticality Noted Date [...] We will try to get records from [facility]. History of COVID-19 12/01/2020 Overview (04/24/2024): [...] WHI. I discussed risks including cardiovascular disease- IA, DVT, stroke. I discussed small increased risk [...] out cholecystitis without obstruction 01/09/2015 COPD, mild [place] [place] [facility] [place] 10/14/2014 Seropositive rheumatoid arth ritis of multiple sites ([facility], [facility]) 08/18/2012 Overview (04/24/2024): Onset fall 2011. Rheumatoid factor, CCP Ab both markedly positive. Hand films show some x-ray changes July 2012.Methotrexate started 08/21. Enbrel added 08/22. Enbrel changed to Humira 10/23 IBS (irritable bowel syndrome) 10/24/2008 Idiopathic scoliosis and kyphoscoliosis 02/29/20 Overview (04/24/2024): mild Immunizations Immunization Administration Dates Next Due Hepatitis B ([id number]-I-Ucppd , Recombivax HB-Adult) 19yo and older 02/18/2005,05/29/2004,04/24/2004 [...] DX:Seropositive rheumatoid a rthritis of multiple sites ([facility]); COMMENT: Onset fall 2011. Rheumatoid [...] Cervical Cancer Screening: Pap Smear 11/01/2020 11/01/2017, 11/01/2017 Colorectal Cancer Screening: Stool Based [...] RESULTING AGENCY - 11/04/2017 4:54 PM EDT [id number] THINPREP PAP, IMAGED: NEGATIVE FOR SQUAMOUS INTRAEPITHELIAL LESION AND MALIGNANCY . RESULT OF APTIMA HIGH RISK HPV ASSAY: NEGATIVE (SEROTYPES 16,18,31,33,35,39,45,51,52,56,58,59,66,68) ELSI OLIVERA, PRADIP(ASCP) (CASE ELECTRONICALLY SIGNED 11 04 2017) ADEQUACY: SATISFACTORY. ENDOCERVICAL/TRANSFORMATION ZONE COMPONENT PRESENT. SOURCE: THINPREP PAP HPV ANY DX: REFLEX 16 AND 18, CERVICAL, IMAGED: CLINICAL INFORMATION: HPV ANY DIAGNOSIS. Z12.4, PAP HX: NEGATIVE Result [facility] Lara Vallejo MD LAB CYTOLOGY [...] should be classified as having osteoporosis. [facility] Department of Internal Medicine recommends using [...] Muñoz should beclassified as having osteoporosis. [facility] Department of Internal Medicine recommendsusing National [...] Most Recently Relevant to Health Maintenance Insurance [facility] [employer] Care Teams Research Associate Relationship Specialty Start Date End Date Aure Caraballo MD [address] [place] [id number] PCP - General Internal Medicine 03/06/24
[2025-03-12 14:38] LABS: Anion Gap 14 (12-20); Blood Urea Nitrogen 15 mg/dL (9-16); Calcium 9.2 mg/dL (8.4-10.2); Carbon Dioxide 26 mmol/L (22-29); Chloride 105 mmol/L (96-108); Estimated Glomerular Filt Rate > 60; Potassium 4.7 mmol/L (3.3-5.1); Sodium 140 mmol/L (135-145)
== END 2025-03-12 11:40 | disposition home or self-care (01) ==
LOC: HO.HMGCLDS 11:39
PROVIDERS: PCP Internal Medicine; Visit Provider Student in an Organized Health Care Education/Training Program
DX: M05.9 Rheumatoid arthritis with rheumatoid factor, unspecified (principal)
CPT/HCPCS: 36415; 80048

== ENCOUNTER 2025-03-14 11:30 | Outpatient (RCR) | payer OTHER, SELFPAY ==
[2023-07-11 12:40] VITALS: BP 147/87; PULSE 88; RESP 18; TEMP 36.6; O2SAT 98; BMI 28.5
[2023-07-11 13:29] LABS: Blood Urea Nitrogen 8 mg/dL (9-16); Creatinine Clr Calc Pharmacy 79.2; Estimated Glomerular Filt Rate > 60
[2023-07-11] MEDS: 0.9 % Sodium Chloride Flush 10 ML SYRINGE 5 ML IVFLUSH (13:54)
[2023-07-11 13:55] VITALS: BP 148/88; PULSE 64; RESP 18; O2SAT 100
[2025-03-14 11:57] VITALS: BP 145/99; PULSE 91; RESP 16; TEMP 37; O2SAT 96
== END 2025-03-14 12:19 | disposition home or self-care (01) ==
LOC: HO.INF 11:30
PROVIDERS: Visit Provider Internal Medicine
DX: M81.0 Age-related osteoporosis without current pathological fracture (principal)
CPT/HCPCS: 36415; 82565; 84520; 96374; J3489